=== PATIENT | female | born 1950 | race Caucasian/White ===

== ENCOUNTER → 2016-08-01 | Outpatient (CLI) | payer OTHER, BC ==
[~2016-08-01] MED LIST: ASPEC325 PO; ASPI325T4 PO; CHOL2000 PO; COEN100C11 PO; CRS5 PO; DYZ PO; ESCI1TAB10 PO; GLUC1CAP35 PO; HYDR-5688 PO; LISI-725 PO; MELO15TA4 PO; TRAZ50TA35 PO; VERA180T10 PO
--- NOTE | 2016-08-01 13:41 | DIAGNOSTIC IMAGING REPORT ---
THYROID ULTRASOUND HISTORY: Thyroid nodules SINGLE THYROID NODULE COMPARISON: 07/26/2014 FINDINGS: Right lobe: Heterogeneous throughout. Maximum linear dimension 5.1 cm. Several small nodules are present largest of which 5 mm. Left lobe: Heterogeneous throughout. Dominant nodule measuring 3 cm. This is similar compared to the prior exam with partial cystic degeneration. Isthmus: No nodules. IMPRESSION: Multinodular multicystic thyroid essentially unchanged given differences in scan technique compared to the prior study. Electronically signed by: Mike Stone M.D. 08/01/2016 1:39 PM Dictated Date/Time: 08/01/2016 1:34 PM
== END | disposition home or self-care (01) ==
LOC: C.ULTR 12:53
PROVIDERS: ATTEND Family Medicine
DX: E04.2 Nontoxic multinodular goiter (principal)

== ENCOUNTER → 2016-11-08 | Outpatient (CLI) | payer OTHER, BC ==
[~2016-11-08] MED LIST changes: -ASPI325T4 PO; -CHOL2000 PO; -COEN100C11 PO; -GLUC1CAP35 PO; -HYDR-5688 PO; -LISI-725 PO; -MELO15TA4 PO; -VERA180T10 PO
--- NOTE | 2016-11-08 16:09 | MAMMOGRAPHY REPORT ---
BILATERAL DIGITAL SCREENING MAMMOGRAM WITH CAD: 11/08/2016 CLINICAL HISTORY: Routine screening. Patient has no complaints. TECHNIQUE: Current study was also evaluated with a Computer Aided Detection (CAD) system. Bilateral CC and MLO views were obtained. COMPARISON: Comparison is made to exams dated: 11/08/2015 mammogram, 11/04/2014 mammogram, 07/21/2013 m ammogram, 07/04/2012 ultrasound, 07/04/2012 mammogram, and 07/01/2012 mammogram - [facility]. BREAST COMPOSITION: The tissue of both breasts is almost entirely fatty. FINDINGS: No suspicious masses, calcifications, or areas of architectural distortion are noted in ei ther breast. There has been no significant interval change compared to prior exams. Left breast nodu larity is stable compared to multiple prior exams. IMPRESSION: ACR BI-RADS CATEGORY 2: BENIGN There is no mammographic evidence of malignancy. A 1 year screening mammogram is recommended. The pa tient will receive written notification of the results. Approximately 10% of breast cancers are not detected with mammography. A negative mammographic report should not delay biopsy if a clinically suggestive mass is present. Cindy Esquivel M.D. ah/:11/08/2016 13:03:24 Line Clearance Foreman: Kayla FOLEY(Kirstin)(M), [facility] letter sent: Normal 1/2 BI-RADS Code: ACR BI-RADS Category 2: Benign
== END | disposition home or self-care (01) ==
LOC: C.MAMM 12:35
PROVIDERS: ATTEND Family Medicine
DX: Z12.31 Encounter for screening mammogram for malignant neoplasm of breast (principal)

== ENCOUNTER → 2016-11-26 | Outpatient (CLI) | payer OTHER, BC ==
--- NOTE | 2016-11-26 08:26 | DIAGNOSTIC IMAGING REPORT ---
ABDOMINAL ULTRASOUND, RIGHT UPPER QUADRANT HISTORY: Epigastric pain, nausea and vomiting. COMPARISON: CT of the abdomen September 27, 2009. FINDINGS: Liver is sonographically normal. There is no biliary ductal dilatation. The common bile duct measures 4 mm in caliber. A gallstone is noted within the gallbladder. There is no gallbladder wall thickening or pericholecystic fluid. Pancreas is sonographically unremarkable although the tail is slightly obscured by overlying bowel gas. There is no right hydronephrosis. IMPRESSION: 1. Cholelithiasis. No gallbladder wall thickening. 2. No biliary ductal dilatation. Electronically signed by: Stone Dhaliwal M.D. 11/26/2016 8:24 AM Dictated Date/Time: 11/26/2016 8:23 AM
== END | disposition home or self-care (01) ==
LOC: C.ULTR 07:09
PROVIDERS: ATTEND Nurse Practitioner Family
DX: R10.13 Epigastric pain (principal); R11.2 Nausea with vomiting, unspecified

== ENCOUNTER → 2016-12-27 | Outpatient (CLI) | payer OTHER, BC ==
[~2016-12-27] MED LIST changes: +ASPI325T4 PO; +CHOL2000 PO; +COEN100C11 PO; +GLUC1CAP35 PO; +LISI-725 PO; +MELO15TA4 PO; +VERA180T10 PO
[2016-12-27 10:11] LABS: BASO % 1.5 %; BASO ABS # 0.07 K/uL (0-0.2); COMPLETE YES; EOS % 12.8 %; IG% 0.2 %; LYMPH % 29.6 %; LYMPH ABS # 1.39 K/uL (1.2-3.4); MEAN CELL VOLUME 90.5 fL (80-100); MEAN PLATELET VOLUME 10.3 fL (7.4-10.4); MONO % 7.7 %; NEUT % 48.2 %; PLATELET COUNT 198 K/uL (130-400); RED BLOOD COUNT 4.42 M/uL (4.2-5.4); WHITE BLOOD COUNT 4.69 K/uL (4.8-10.8)
[2016-12-27 10:19] LABS: BLOOD UREA NITROGEN 23 mg/dl (7-18); BUN/CREATININE RATIO 29.4 (10-20); CALCIUM 9.6 mg/dl (8.5-10.1); CARBON DIOXIDE 32 mmol/L (21-32); CHLORIDE 105 mmol/L (98-107); CREATININE 0.78 mg/dl (0.60-1.20); GLUCOSE 78 mg/dl (70-99); POTASSIUM 4.7 mmol/L (3.5-5.1); SODIUM 140 mmol/L (136-145)
== END | disposition home or self-care (01) ==
LOC: C.CPL 09:25
PROVIDERS: ATTEND Surgery
DX: K80.50 Calculus of bile duct without cholangitis or cholecystitis without obstruction (principal); K80.20 Calculus of gallbladder without cholecystitis without obstruction

== ENCOUNTER 2017-01-02 05:09 | Observation (INO) | payer OTHER, BC ==
[2016-12-28 11:40] VITALS: BMI 29.0
[2017-01-02] VITALS (9 sets, daily range): BP systolic 125–154; BP diastolic 64–89; PULSE 59–78; TEMP 36.6–37.2; O2SAT 90–97; Ht 170.2 cm; Wt 85.0 kg
[~2017-01-02] VITALS: Ht 170.2 cm; Wt 85.0 kg
[~2017-01-02 05:09] MED LIST changes: -ASPEC325 PO; -DYZ PO
[2017-01-02] MEDS ORDERED: LACTATED RINGER'S 1000ML 1,000 ML IV SCH (06:00)
[2017-01-02] MEDS ORDERED: CEFUROXIME IV 1,500 MG in DEXTROSE 5% 100ML IV SCH (06:00)
--- NOTE | 2017-01-02 06:49 | History & Physical Bridge Note ---
H&P Re-Evaluation Bridge Note: I have examined the patient, reviewed the History & Physical and in the interval since the performance of the History & Physical I have noted the following changes of clinical significance: No changes noted
[2017-01-02] MEDS ORDERED: LIDOCAINE HCL 2% 2 ML VIAL (20MG/ML) ONE (06:57)
[2017-01-02] MEDS ORDERED: FENTANYL CITRATE INJ 50 MCG/1 ML 2 ML VIAL ONE ×2 (06:57→06:59)
[2017-01-02] MEDS ORDERED: PROPOFOL IV EMULSION 10 MG/ML 20 ML VIAL IV ONE (06:57)
[2017-01-02] MEDS ORDERED: ROCURONIUM BROMIDE 10 MG/ML 5 ML VIAL IV ONE (06:57)
[2017-01-02] MEDS ORDERED: MIDAZOLAM HCL 1 MG/ML 2ML VIAL ONE (06:57)
[2017-01-02] MEDS ORDERED: BUPIVACAINE 0.5 % 5 MG/1 ML MPF 30ML VIAL ONE (07:04)
[2017-01-02] MEDS ORDERED: HYDROmorphone INJ 1 MG/ML SYR IV PRN (07:45)
[2017-01-02] MEDS ORDERED: LABETALOL HCL IV 5 MG/ML 20ML IV PRN (07:45)
[2017-01-02] MEDS ORDERED: FENTANYL CITRATE INJ 50 MCG/1 ML 2 ML VIAL IV PRN (07:45)
[2017-01-02] MEDS ORDERED: MEPERIDINE HCL 25 MG/ML CARP IV PRN (07:45)
[2017-01-02] MEDS ORDERED: ATROPINE SULFATE 0.1 MG/ML 5ML SYR IV PRN (07:45)
[2017-01-02] MEDS ORDERED: EpHEDrine SULFATE INJ 50 MG/ML AMP IV PRN (07:45)
[2017-01-02] MEDS ORDERED: ONDANSETRON INJ 2 MG/ML 2 ML VIAL IV PRN ×2 (07:45→08:45)
[2017-01-02] MEDS ORDERED: LABETALOL HCL IV 5 MG/ML 20ML IV ONE (07:54)
[2017-01-02] MEDS ORDERED: DEXAMETHASONE SOD INJ 4 MG/ML VIAL ONE (07:54)
[2017-01-02] MEDS ORDERED: ONDANSETRON INJ 2 MG/ML 2 ML VIAL ONE (07:54)
[2017-01-02] MEDS ORDERED: GLYCOPYRROLATE INJ 0.2 MG/ML VIAL ONE ×3 (07:54→08:17)
[2017-01-02] MEDS ORDERED: NEOSTIGMINE METHYLSULFATE 1 MG/ML 10ML VIAL ONE (07:54)
[2017-01-02] MEDS ORDERED: THROMBIN 5000 UNITS KIT ONE (07:56)
[2017-01-02] MEDS ORDERED: THROMBIN FOR SOLN 20000 UNIT KIT ONE (07:56)
--- NOTE | 2017-01-02 08:38 | [facility] Operative Report ---
Operative Report Operative Date Jan 02, 2017. Pre-Operative Diagnosis Biliary Colic & Cholelithiasis Post-Operative Diagnosis Biliary Colic & Cholelithiasis Procedure(s) Performed Laparoscopic Cholecystectomy Surgeon Dr. Luis Miguel Littlejohn Lining Stuffer Surgeon(s) Blayne Reed PA-C Findings mild inflammation Specimens A: Gallbladder & Contents Anesthesia gen Complication(s) None Disposition Recovery Room / PACU I attest to the content of the Intraoperative Record and any orders documented therein. Any exceptions are noted below.
[2017-01-02] MEDS ORDERED: PROMETHAZINE HCL INJ 25 MG in SODIUM CHLORIDE 0.9% 50ML 50 ML IV PRN (08:45)
[2017-01-02] MEDS ORDERED: HYDROCODONE/ACETAMOPHEN 5/325MG TAB PO PRN ×2 (08:45)
[2017-01-02] MEDS ORDERED: MoRPHine SULFATE 2 MG/ML CARP IV PRN (08:45)
[2017-01-02] MEDS ORDERED: MoRPHine SULFATE 4 MG/ML 1 ML CARP\\VIAL IV PRN (08:45)
--- NOTE | 2017-01-02 08:54 | OPERATIVE REPORT ---
DATE OF OPERATION: 01/02/2017 NAME OF OPERATION: Laparoscopic cholecystectomy. PREOPERATIVE DIAGNOSIS: Biliary colic. POSTOPERATIVE DIAGNOSIS: Biliary colic with chronic cholecystitis. STAFF SURGEON: Donnell Littlejohn MD. JUMPBASTING LINING BASTER: Blayne Drew PA-C. ANESTHESIA: General. DESCRIPTION OF PROCEDURE: The patient was brought in the operating room and placed on the operating table in supine position. Her abdomen was prepped and draped in usual fashion. 0.5% plain Marcaine was used to anesthetize all incisions. Incision was made above the umbilicus, carrying dissection down to the fascia, placing a Veress needle producing pneumoperitoneum. An 11 mm port was placed at this level. The patient did have some oozing from the site. She had a history of being on aspirin and also CoQ10. At this point, I put a balloon cannula into the umbilical site and inflated the balloon and secured the site. Three 5 mm ports were placed. Then, 1 cephalad and 2 laterally, all under visualization. During the operation, there was some oozing from these sites. The gallbladder was grasped and retracted. It was aspirated of bile. Dissection carried out at the thaddeus hepatis, identifying the cystic duct and cystic artery. These were clipped and transected and the gallbladder dissected away from the liver bed in the usual fashion, placed into an Endobag. There was no significant bleeding from the liver bed. There was some mild oozing from some of the port sites. The gallbladder was removed through the umbilical site and then the 5 mm skin sites closed using 4-0 nylon suture. I did recheck intraabdominally and there was no significant bleeding from these port sites. The umbilical incision was then closed, reapproximating the fascia using interrupted 0 PDS suture, subcutaneous tissue was reapproximated using 2-0 plain catgut suture then the skin reapproximated using 4-0 nylon suture. The patient was transferred to recovery room in stable condition. I attest to the content of the Intraoperative Record and any orders documented therein. Any exception s are noted below.
[2017-01-02] MEDS ORDERED: LISINOPRIL 20 MG TAB PO SCH (09:00)
[2017-01-02] MEDS ORDERED: IV FLUIDS COMPLETED PRN (09:30)
--- NOTE | 2017-01-02 09:33 | Anesthesiology Progress Note ---
Anesthesia Post Op Note Date & Time Jan 02, 2017 at 09:32 Vital Signs Pain Intensity: 0 Vital Signs Past 12 Hours Date Time Temp Pulse Resp B/P (MAP) Pulse Ox O2 Delivery O2 Flow Rate FiO2 01/02/17 09:30 36.8 60 14 151/78 96 Nasal Cannula 2 01/02/17 09:20 63 14 156/84 94 Nasal Cannula 2 01/02/17 09:10 70 15 155/89 96 Oxymask 5 01/02/17 09:00 36.4 80 15 164/95 94 Oxymask 10 01/02/17 05:39 36.6 61 18 150/89 (109) 97 Room Air Notes Mental Status: alert / awake / arousable, participated in evaluation Pt Amnestic to Procedure: Yes Nausea / Vomiting: adequately controlled Pain: adequately controlled Airway Patency, RR, SpO2: stable & adequate BP & HR: stable & adequate Hydration State: stable & adequate Anesthetic Complications: no major complications apparent
[2017-01-02] MEDS ORDERED: ROSUVASTATIN CALCIUM 5 MG TAB PO SCH (10:30)
[2017-01-02] MEDS ORDERED: HydrALAZINE HCL 20 MG/ML VIAL IV. PRN (10:30)
--- NOTE | 2017-01-02 10:41 | Medical Consult ---
Consultation Date of Consultation: Jan 02, 2017. Attending Physician: Donnell Littlejohn M.D. Reason for Consultation: Medical Management History of Present Illness Patient is a 66 y/o female, with PMHx of HTN, HLD, and depression, s/p lap felipe due to biliary colic w/ chronic cholecystitis by Dr. Littlejohn on 01/02. Patient resting in bed. Alert/oriented. Admits to mild nausea. Has not eaten anything since procedure. Pain is well controlled. No BM/flatus postop. Patient denies any fever, chills, sweats, lightheadedness, dizziness, vision changes, CP , palpitations, edema, SOB, wheezing, cough, vomiting, diarrhea, urinary symptoms, melena, numbness/tingling, weakness, muscle/joint pain, anxiety/ depression, active bleeding, or new skin discoloration/changes. Past Medical/Surgical History Medical Problems: Depression HLD HTN Surgical History: lap felipe Family History No pertinent family history Social History Smoking Status: Never Smoker Drug Use: none Marital Status: Housing Status: lives with family Occupation Status: retired Allergies Coded Allergies: BEE STING (Verified Allergy, Mild, 04/26/06) Rosuvastatin (Verified Adverse Reaction, Unknown, MUSCLE WEAKNESS,CRAMPS, 09/05/15) Home Medications Reported Home Medications Medications Dose Route/Sig Max Daily Dose Days Date Category Dose Instructions Vitamin D3 (Cholecalciferol) 2,000 Unit Cap 1 Cap PO QAM 30 12/28/16 Reported Verapamil Hcl Sa (Verapamil Hcl) 180 Mg Tab 1 Tab PO QAM 30 12/28/16 Reported Meloxicam 15 Mg Tab 1 Tab PO QAM 12/28/16 Reported Zestril (Lisinopril) 20 Mg Tab 20 Mg PO BID 12/28/16 Reported Glucosamine Chondroitin (Dnxzbnfeiih-Hstdchbuyri-Iee C-) 1 Cap Cap 1 Cap PO QAM 12/28/16 Reported Coq-10 (Coenzyme Q10 (Ubidecarenone)) 100 Mg Cap 1 Tab PO QAM 12/28/16 Reported Aspirin 325 Mg Tab 325 Mg PO QAM 12/28/16 Reported Crestor (Rosuvastatin Calcium) 5 Mg Tab 5 Mg PO Q2D 09/05/15 Reported AT BEDTIME Trazodone (Trazodone HCl) 50 Mg Tab 50 Mg PO HS 05/04/09 Reported Lexapro (Escitalopram Oxalate) 20 Mg Tab 20 Mg PO QAM 05/04/09 Reported Current Inpatient Medications Current Inpatient Medications Medications (Trade) Dose Ordered Sig/Narinder Route Start Time Stop Time Status Last Admin Dose Admin Fentanyl Citrate (Fentanyl Inj) 50 mcg Q5M PRN IV 01/02/17 07:45 01/02/17 13:00 Hydromorphone HCl (Dilaudid Inj) 0.5 mg Q5M PRN IV 01/02/17 07:45 01/02/17 13:00 Meperidine HCl (Demerol Inj) 25 mg Q5M PRN IV 01/02/17 07:45 01/02/17 13:00 Ondansetron HCl (Zofran Inj) 4 mg ONE PRN IV 01/02/17 07:45 01/02/17 13:00 Labetalol HCl (Normodyne IV) 5 mg Q5M PRN IV 01/02/17 07:45 01/02/17 13:00 Ephedrine Sulfate (EpHEDrine SULFATE INJ) 5 mg Q5M PRN IV 01/02/17 07:45 01/02/17 13:00 Atropine Sulfate (Atropine Sulfate 0.1MG/Ml Inj) 0.5 mg Q1M PRN IV 01/02/17 07:45 01/02/17 13:00 Lisinopril (Zestril Tab) 20 mg BID PO 01/02/17 09:00 02/01/17 08:59 Trazodone HCl (Desyrel Tab) 50 mg HS PO 01/02/17 21:00 02/01/17 20:59 Acetaminophen/ Hydrocodone Bitart ([place] 5/325 Tab) 1 tab Q4 PRN PO 01/02/17 08:45 01/16/17 08:44 Acetaminophen/ Hydrocodone Bitart ([place] 5/325 Tab) 2 tab Q4 PRN PO 01/02/17 08:45 01/16/17 08:44 Morphine Sulfate (MoRPHine SULFATE INJ) 2 mg Q4H PRN IV 01/02/17 08:45 01/16/17 08:44 Morphine Sulfate (MoRPHine SULFATE INJ) 4 mg Q4H PRN IV 01/02/17 08:45 01/16/17 08:44 Promethazine HCl 25 mg/Sodium Chloride 51 ml @ 204 mls/hr Q6H PRN IV 01/02/17 08:45 02/01/17 08:44 Ondansetron HCl (Zofran Inj) 4 mg Q6H PRN IV 01/02/17 08:45 02/01/17 08:44 Miscellaneous (Iv Fluids Completed) 1 ea PRN PRN N/A 01/02/17 09:30 01/02/18 09:29 Physical Exam Date Time Temp Pulse Resp B/P (MAP) Pulse Ox O2 Delivery O2 Flow Rate FiO2 01/02/17 10:16 65 16 126/73 (90) 96 2.0 01/02/17 09:45 Nasal Cannula 2.0 01/02/17 09:45 96 Nasal Cannula 2.0 01/02/17 09:45 36.7 63 18 136/75 (95) 96 Nasal Cannula 2.0 01/02/17 09:30 36.8 60 14 151/78 96 Nasal Cannula 2 01/02/17 09:20 63 14 156/84 94 Nasal Cannula 2 01/02/17 09:10 70 15 155/89 96 Oxymask 5 01/02/17 09:00 36.4 80 15 164/95 94 Oxymask 10 01/02/17 05:39 36.6 61 18 150/89 (109) 97 Room Air General Appearance: no apparent distress, + pertinent finding (O2 NC ) Head: normocephalic, atraumatic Eyes: normal inspection, PERRL ENT: hearing grossly normal Neck: supple Respiratory/Chest: lungs clear, no respiratory distress, no accessory muscle use Cardiovascular: regular rate, rhythm Abdomen/GI: normal bowel sounds, soft, + tenderness (around incision sites ), + pertinent finding (Wound dressings C/D/I ) Extremities/Musculoskelatal: no calf tenderness, no pedal edema Neurologic/Psych: alert, normal mood/affect, oriented x 3, + pertinent finding (drowsy ) Skin: normal color, warm/dry, no rash Laboratory Results Last 24 Hours Test 01/02/17 10:07 Assessment & Plan Patient is a 66 y/o female, with PMHx of HTN, HLD, and depression, s/p lap felipe due to biliary colic w/ chronic cholecystitis by Dr. Littlejohn on 01/02. s/p lap felipe on 01/[address] Littlejohn: - Surgical management, pain management, and DVT prophylaxis as per primary team - Follow postop CBC and PRP - Encouraged incentive spirometer HTN: - Hold Lisinopril 20 mg BID pending postop labs - Continue Verapamil 180 mg daily - IV Hydralazine PRN HLD: Continue Crestor 5 mg Q2D Depression: Continue Lexapro 20 mg daily, Trazodone 50 mg HS DVT prophylaxis: As per surgical team Code Status: LEVEL I, FULL Dispo: As per primary team Thank you for this consultation. We will continue to follow. PA Physician Supervision Note: I interviewed and examined the patient. Discussed with Veronica AYALA and agree with findings and plan as documented in the note. Any exceptions or clarifications are listed here: None Patient is doing very well status post laparoscopic cholecystectomy was only referred left shoulder pain she is tolerating liquid diet Vital signs are stable following her for hypertension Heart is regular lungs are clear abdomen is soft hypoactive bowel sounds incisions were clean dry and intact Continue home treatment for hypertension but hold lisinopril in the postoperative period with backup hydralazine as needed next Dr. Littlejohn is advancing diet anticipate discharge next few days Documented By: Jamie Penn
[2017-01-02] MEDS ORDERED: HYDR-5688 PO (14:12)
--- NOTE | 2017-01-02 14:14 | Discharge Instructions ---
Discharge Instructions Date of Service Jan 02, 2017. Admission Reason for Admission: Cholelithiasis Discharge Discharge Diagnosis / Problem: chronic cholecystitis Discharge Goals Goal(s): Decrease discomfort, Improve function, Improve disease control Activity Recommendations Activity Limitations: as noted below Lifting Limitations: no more than 25 pounds Exercise/Sports Limitations: until after follow-up appointment May Resume Sexual Activity: when tolerated Shower/Bathe: tomorrow Driving or Machine Use: resume 3 days after discharge SPECIAL CARE INSTRUCTIONS: * Cover incisions and change daily for comfort/drainage. * May use ibuprofen for pain as tolerated. * Expect some swelling and bruising. Call your doctor if: * Temperature above 101 degrees * Pain not relieved by pain medicine ordered * There is increased drainage or redness from any incision * You have any unanswered questions or concerns [phone]. FOLLOW UP VISIT: If not already scheduled, please call the office for a follow-up visit. for next week- suture removal OFFICE PHONE NUMBER: Dr. Littlejohn Office . Current Hospital Diet Patient's current hospital diet: Regular Diet Discharge Diet Recommended Diet: Regular Diet Procedures Procedures Performed: Laparoscopic Cholecystectomy Pending Studies Studies pending at discharge: no Medical Emergencies . Who to Call and When: Medical Emergencies: If at any time you feel your situation is an emergency, please call 911 immediately. . Non-Emergent Contact Non-Emergency issues call your: Primary Care Provider, Surgeon . "Provider Documentation" section prepared by Donnell Littlejohn. . VTE Core Measure Inpt VTE Proph given/why not?: SCD's
[2017-01-02] MEDS ORDERED: TRAZODONE HCL 50 MG TAB PO SCH (21:00)
[2017-01-03 03:25] VITALS: BP 122/69; PULSE 65; TEMP 36.8; O2SAT 91
[2017-01-03 05:21] LABS: ALT/SGPT 29 U/L (12-78); AST/SGOT 30 U/L (15-37); BLOOD UREA NITROGEN 24 mg/dl (7-18); BUN/CREATININE RATIO 29.2 (10-20); CALCIUM 9.4 mg/dl (8.5-10.1); CARBON DIOXIDE 29 mmol/L (21-32); CHLORIDE 105 mmol/L (98-107); CREATININE 0.83 mg/dl (0.60-1.20); GLUCOSE 124 mg/dl (70-99); POTASSIUM 4.3 mmol/L (3.5-5.1); SODIUM 140 mmol/L (136-145)
[2017-01-03 05:24] LABS: ALB/GLOB RATIO 1.1 (0.9-2); ALKALINE PHOSPHATASE 59 U/L (45-117)
--- NOTE | 2017-01-03 06:29 | DISCHARGE SUMMARY ---
DATE OF DISCHARGE: 01/03/2017 PRINCIPAL DIAGNOSIS: Chronic cholecystitis. PROCEDURE: The patient underwent laparoscopic cholecystectomy. HISTORY OF PRESENT ILLNESS: The patient is a 66-year-old female who had been having upper abdominal pain and noted with gallstones on workup, felt to be secondary to biliary colic. The patient was brought in the hospital on 01/02/2017 where she underwent laparoscopic cholecystectomy. She did tolerate the procedure very well and was felt stable for discharge home today. She did have some mild oozing during the operation from her port sites, specifically at the skin. One of her 5 mm port sites did have a small amount of oozing throughout the day but seems to be under control. I do feel she can be discharged home today. We will follow her in the office within 1 week.
[2017-01-03 07:09] VITALS: BP 145/80; PULSE 60; TEMP 37; O2SAT 93
[2017-01-03 07:16] LABS: HEMATOCRIT 35.3 % (37-47); MEAN CELL VOLUME 89.4 fL (80-100); MEAN CORPUSCULAR HEMOGLOBIN 28.9 pg (25-34); MEAN CORPUSCULAR HGB CONC 32.3 g/dl (32-36); MEAN PLATELET VOLUME 10.7 fL (7.4-10.4); PLATELET COUNT 182 K/uL (130-400); RED BLOOD COUNT 3.95 M/uL (4.2-5.4); WHITE BLOOD COUNT 7.08 K/uL (4.8-10.8)
[2017-01-03] MEDS ORDERED: ESCITALOPRAM OXALATE 20 MG TAB PO SCH (09:00)
[2017-01-03] MEDS ORDERED: VERAPAMIL HCL 180 MG TABCR PO SCH (09:00)
[2017-01-03 09:58] VITALS: BP 145/80; PULSE 60; TEMP 37; O2SAT 93
== END 2017-01-03 10:55 | disposition home or self-care (01) ==
LOC: C.ACU 05:09 → C.MSW 08:44 → ENRESERV 09:25
PROVIDERS: ADMIT Surgery; ATTEND Surgery
DX: K80.10 Calculus of gallbladder with chronic cholecystitis without obstruction (principal); I10 Essential (primary) hypertension; E78.5 Hyperlipidemia, unspecified; F32.9 Major depressive disorder, single episode, unspecified; Z79.82 Long term (current) use of aspirin; Z79.899 Other long term (current) drug therapy

== ENCOUNTER 2019-05-01 11:52 | Observation (INO) ==
[2019-05-01] MEDS ORDERED: SODIUM CHLORIDE 0.9% 1000ML 500 ML IV ONE (12:31)
[2019-05-01] MEDS ORDERED: PROCHLORPERAZINE 2 ML IV ONE (12:31)
[2019-05-01 12:44] LABS: Basophils # (auto) 0.03 K/uL (0-0.2); Basophils % (auto) 0.4 %; Eosinophils # (auto) 0.88 K/uL (0-0.5); Eosinophils % (auto) 12.2 %; Hemoglobin 13.9 g/dL (12.0-16.0); Immature Granulocytes # (auto) 0.03 K/uL (0.00-0.02); Immature Granulocytes % (auto) 0.4 %; Lymphocytes # (auto) 1.84 K/uL (1.2-3.4); Lymphocytes % (auto) 25.6 %; Mean Corpuscular Hemoglobin 28.6 pg (25-34); Mean Corpuscular Hgb Conc 32.3 g/dL (32-36); Mean Corpuscular Volume 88.5 fL (80-100); Mean Platelet Volume 10.3 fL (7.4-10.4); Monocytes # (auto) 0.47 K/uL (0.11-0.59); Monocytes % (auto) 6.5 %; Neutrophils # (auto) 3.95 K/uL (1.4-6.5); Neutrophils % (auto) 54.9 %; Platelet Count 209 K/uL (130-400); RDW Coefficient of Variation 13.1 % (11.5-14.5); RDW Standard Deviation 41.9 fL (36.4-46.3); Red Blood Count 4.86 M/uL (4.2-5.4)
[2019-05-01 12:52] LABS: Alanine Aminotransferase 15 U/L (12-78); Albumin Level 3.5 gm/dl (3.4-5.0); Aspartate Aminotransferase 12 U/L (15-37); BUN Creatinine Ratio 27.4 (10-20); Blood Urea Nitrogen 24 mg/dl (7-18); Carbon Dioxide 27 mmol/L (21-32); Chloride 107 mmol/L (98-107); Creatinine Clr Calc Pharmacy 70.5 ml/min; Est GFR (African American) 78.8; Glucose 99 mg/dl (70-99); Magnesium 1.8 mg/dl (1.8-2.4); Potassium 3.9 mmol/L (3.5-5.1); Sodium 139 mmol/L (136-145)
[2019-05-01 12:55] LABS: Partial Thromboplastin Ratio 0.9; Partial Thromboplastin Time 23.9 Seconds (21.0-31.0); Prothrombin Time 10.1 Seconds (9.0-12.0)
[2019-05-01 12:56] LABS: Alkaline Phosphatase 69 U/L (45-117); Bilirubin,Total 0.4 mg/dl (0.2-1); Globulin 3.5 gm/dl (2.5-4.0); Troponin I < 0.015 ng/ml (0-0.045)
[2019-05-01] MEDS ORDERED: OPTIRAY 320 125ml IV PRN (13:53)
--- NOTE | 2019-05-01 14:18 | CT Scan Report ---
CT angio neck with con CLINICAL HISTORY: vertigo, expressive aphasia yesterday, HUGHES COMPARISON STUDY: No previous studies for comparison. TECHNIQUE: CT angiography was performed from the aortic arch to the skull base. MIP imaging was perfo rmed. The patient was scanned in a dynamic helical fashion during intravenous administration of 120 c c of Optiray 320. A dose lowering technique was utilized adhering to the principles of ALARA. CT DOSE: Technique: CT angiogram of the carotid and vertebral arteries was obtained using intravenous contrast and 3-D reconstruction. NASCET criteria was utilized. Findings: There is a multinodular thyroid goiter. The left lobe nodule contains multiple calcifications. This h as been described on prior ultrasonography. The right carotid revealed no evidence of aneurysm and no evidence of dissection. There is no evidenc e of hemodynamic significant stenosis. The left carotid revealed no evidence of hemodynamic significant stenosis. There is no evidence of an eurysm. There is no evidence of dissection. There is no evidence of hemodynamically significant vertebral stenosis. There is no evidence of verte bral dissection. IMPRESSION: No evidence of hemodynamically significant carotid or vertebral artery stenosis. No evidence of disse ction. ACT 112: Negative or not required by law. Electronically signed by: Jamie Hooper M.D. 05/01/2019 2:17 PM
--- NOTE | 2019-05-01 14:26 | CT Scan Report ---
NONCONTRAST HEAD CT, HEAD CTA HISTORY: vertigo, expressive aphasia yesterday, headache TECHNIQUE: Multiaxial CT images of the head were performed both before and after the intravenous admi nistration of contrast to evaluate the major cerebral vessels. Maximum intensity projection images we re also obtained. A dose lowering technique was utilized adhering to the principles of ALARA. COMPARISON: None. FINDINGS: There is no mass, hematoma, midline shift, or acute infarct. Visualized intracranial architectural intern al carotid arteries, distal vertebral arteries, and basilar artery are widely patent. There is no sig nificant stenosis, occlusion, or aneurysm seen within the bilateral ACAs, MCAs, or building equipment inspector. Incidental n ote is made of a persistent left posterior circulation. This is considered to be a normal varia nt. IMPRESSION: 1. No acute intracranial abnormality. 2. No significant stenosis, occlusion, or aneurysm within the [place]. ACT 112: Negative or not required by law. Electronically signed by: Ashu Kim M.D. 05/01/2019 2:25 PM
--- NOTE | 2019-05-01 14:26 | CT Scan Report ---
NONCONTRAST HEAD CT, HEAD CTA HISTORY: vertigo, expressive aphasia yesterday, headache TECHNIQUE: Multiaxial CT images of the head were performed both before and after the intravenous admi nistration of contrast to evaluate the major cerebral vessels. Maximum intensity projection images we re also obtained. A dose lowering technique was utilized adhering to the principles of ALARA. COMPARISON: None. FINDINGS: There is no mass, hematoma, midline shift, or acute infarct. Visualized intracranial international exchange coordinator al carotid arteries, distal vertebral arteries, and basilar artery are widely patent. There is no sig nificant stenosis, occlusion, or aneurysm seen within the bilateral ACAs, MCAs, or motor vehicle technician. Incidental n ote is made of a persistent left posterior circulation. This is considered to be a normal varia nt. IMPRESSION: 1. No acute intracranial abnormality. 2. No significant stenosis, occlusion, or aneurysm within the [place]. ACT 112: Negative or not required by law. Electronically signed by: Ashu Kim M.D. 05/01/2019 2:25 PM
--- NOTE | 2019-05-01 14:49 | History & Physical Report ---
Date of Service May 01, 2019 Assessment & Plan (1) Expressive aphasia: 69-year-old female with history of hypertension, hyperlipidemia, remote history of atrial fibrillation presently not on anticoagulation therapy presenting with transient expressive aphasia as well as vertigo and gait instability. Concern for TIA versus CVA. CT head as well as CTA head/neck negative. EKG shows normal sinus rhythm. Labs are unremarkable. Patient states that her aphasia has resolved. Now with headache and vertigo. -Admit to medical floor telemetry monitoring Check MRI brain Check 2D echocardiogram Lipids, TSH and A1c with labs tomorrow No change antiplatelet to from aspirin to Plavix 75 mg p.o. daily No change statin from Crestor to atorvastatin 40 mg p.o. daily Continue co-Q10 Hold antihypertensives for now -Neurology consult. Appreciate assistance PT/OT evaluationappreciate assistance -Tylenol as needed for headache Patient with remote history of atrial fibrillation presently on verapamil. States that she has never been on a blood thinner. Currently in normal sinus rhythm Holding verapamil for now Telemetry monitoring while inpatient If no atrial fibrillation detected would consider outpatient monitoring. Patient is at high risk for stroke should she have A. fib Present on Admission?: Yes (2) Sinusitis: Patient with acute sinusitis presently on Augmentin therapy. She has 1 additional tablet to take this evening. She reports that she frequently experiences vertigo when she has her sinus infections however, this current episode of vertigo is more severe and longer lasting than prior episodes. We will give last dose of Augmentin this evening Continue Flonase Meclizine as needed vertigo Nasal saline wash Present on Admission?: Yes (3) Hypertension: Blood pressure stable at present, 139/93 We will hold lisinopril for now Continue to monitor Present on Admission?: Yes (4) Hyperlipidemia: Chronic. Patient on Crestor 5 mg 3 days/week. Will change to atorvastatin 40 mg p.o. daily Continue co-Q10 Present on Admission?: Yes (5) Depression: Chronic. Stable. Continue Lexapro F/E/N -Hep-Lock. Monitor electrolytes and replete as needed. Heart healthy diet as tolerated after bedside dysphasia screening Prophylaxislow risk for DVT Codefull per discussion with patient, at bedside Dispositionobservation to medical floor telemetry monitoring. Anticipate discharge home tomorrow History of Present Illness Chief Complaint: Dizziness, ataxia Primary Care Provider: MD Nelli Escobedoaugh is a 69-year-old female with history of hypertension, hyperlipidemia, migraine, remote history of atrial fibrillation on verapamil, no anticoagulation. She presents today with complaints of expressive aphasia noticed first yesterday around 1600. She states that she was unable to read and unable to speak. Reports that she knew what she wanted to say but was speaking nonsensically and having a difficult time finding and forming her words. reports that her speech was garbled and unclear. She also reports gait instability and dizziness as well as severe headache. Patient currently with acute sinusitis on Augmentin. She has 1 additional dose to take this evening to complete a 10-day course. She reports that she frequently has sinusitis about twice per year and when she gets it she gets a mi graine headache as well as vertigo. She does report that the headache and vertigo today is more severe than her usual. Patient was seen by her PCP today and instructed to come to the ER. She feels t hat her aphasia and speech difficulties have resolved. Still complaining of headache, dizziness, gait instability ER course: Phenergan, normal saline solution Allergies Allergy/AdvReac Type Severity Reaction Status Date / Time bee venom protein (honey bee) Allergy Mild Verified 05/01/19 14:51 rosuvastatin AdvReac Unknown MUSCLE Verified 05/01/19 14:51 WEAKNESS,CRAMPS Home Medications Home Medications Medication Instructions Recorded Confirmed Type amoxicillin-pot clavulanate 1 tab PO BID 05/01/19 05/01/19 History cholecalciferol (vitamin D3) 2,000 unit PO QAM 05/01/19 05/01/19 History coenzyme Q10 [Co Q-10] 200 mg PO QAM 05/01/19 05/01/19 History escitalopram oxalate 20 mg PO DAILY 05/01/19 05/01/19 History fluticasone propionate [Flonase 1 spray INTRANASAL QAM PRN 05/01/19 05/01/19 History Allergy Relief] tzyruion-lufvc-lcw4-C-jamar-bor 1 tab PO QAM 05/01/19 05/01/19 History [Bwpenbmbcsz-Vsnhr-JTR Complex] lisinopril 20 mg PO BID 05/01/19 05/01/19 History loratadine 10 mg PO QAM PRN 05/01/19 05/01/19 History meclizine 25 mg PO TID PRN 05/01/19 05/01/19 History meloxicam 15 mg PO QAM 05/01/19 05/01/19 History multivitamin 1 tab PO QAM 05/01/19 05/01/19 History rizatriptan 10 mg PO ONCE PRN 05/01/19 05/01/19 History rosuvastatin 5 mg PO Q OTHER DAY 05/01/19 05/01/19 History trazodone 50 mg PO HS 05/01/19 05/01/19 History verapamil 240 mg PO QAM 05/01/19 05/01/19 History Past Med/Surg History Medical History (Updated 05/01/19 @ 15:35 by Alyx Burch DO) Depression Hyperlipidemia (Chronic) Hypertension Migraine Surgical History (Updated 05/01/19 @ 15:35 by Alyx Burch DO) History of cholecystectomy History of hernia repair History of hysterectomy Family History (Updated 05/01/19 @ 15:34 by Alyx Burch DO) Other Diabetes Social History (Updated 05/01/19 @ 15:34 by Alyx Burch DO) Feels Safe at Home: Yes Smoking Status: Never smoker Hx Alcohol Use: No Hx Substance Use: No Review of Systems Review of Systems: All systems reviewed & are unremarkable except as noted in HPI & below Physical Exam Physical Exam: General: patient resting comfortably, NAD, non-toxic in appearance, AA&O x 4 Skin: warm, dry, intact, no rashes or lesions HEENT: NC/AT, PERRL, EOMI, no nystagmus, anicteric sclera, conjunctiva without injection, external ear normal to inspection and nontender, TMs with good cone of light, no evidence of infection, nares patent, + facial tenderness over maxillary and frontal sinuses, moist mucus membranes, dentition intact, no oropharyngeal lesions, neck supple, trachea midline, no LAD, no thyromegaly, no JVD Heart: +S1/S2, regular, no m/r/g Lungs: equal air entry bilaterally, no rales/rhonchi/wheezes Abd: +BS, soft, NT/ND, no masses/organomegaly/ascites Ext: warm, 2+ pulses in UE/LE bilaterally, no clubbing/cyanosis or edema Neuro: nonfocal, patient AA&O x 4, speech intact with very mild word finding difficulty, no facial droop, cranial nerves II through XII grossly intact, sensation to light touch intact, muscle strength 5 out of 5 in upper and lower extremities bilaterally, significant ataxia when getting patient up from bed Results & Data Vital Signs (Past 12 Hours) Vital Signs Temp Pulse Pulse Resp BP BP Pulse Ox 05/01/19 13:07 66 16 139/93 99 05/01/19 11:58 36.8 C 79 18 148/89 H 96 Laboratory Results Lab Results 05/01/19 05/01/19 05/01/19 Range/Units 12:10 12:10 12:10 WBC 7.20 (4.8-10.8) K/uL RBC 4.86 (4.2-5.4) M/uL Hgb 13.9 (12.0-16.0) g/dL Hct 43.0 (37-47) % MCV 88.5 (80-100) fL MCH 28.6 (25-34) pg MCHC 32.3 (32-36) g/dL RDW Std Deviation 41.9 (36.4-46.3) fL RDW Coeff of Jaskaran 13.1 (11.5-14.5) % Plt Count 209 (130-400) K/uL MPV 10.3 (7.4-10.4) fL Immature Gran % (Auto) 0.4 % Neut % (Auto) 54.9 % Lymph % (Auto) 25.6 % [place] % (Auto) 6.5 % Eos % (Auto) 12.2 % Baso % (Auto) 0.4 % Immature Gran # (Auto) 0.03 H (0.00-0.02) K/uL Neut # (Auto) 3.95 (1.4-6.5) K/uL Lymph # (Auto) 1.84 (1.2-3.4) K/uL [place] # (Auto) 0.47 (0.11-0.59) K/uL Eos # (Auto) 0.88 H (0-0.5) K/uL Baso # (Auto) 0.03 (0-0.2) K/uL PT 10.1 (9.0-12.0) Seconds INR 1.0 (0.9-1.1) APTT 23.9 (21.0-31.0) Seconds PTT Ratio 0.9 Sodium 139 (136-145) mmol/L Potassium 3.9 (3.5-5.1) mmol/L Chloride 107 (98-107) mmol/L Carbon Dioxide 27 (21-32) mmol/L Anion Gap 5.0 (3-11) BUN 24 H (7-18) mg/dl Creatinine 0.86 (0.6-1.2) mg/dl Est Cr Clr Drug Dosing 70.5 ml/min Est GFR ( Amer) 78.8 Est GFR (Non-Af Amer) 68.0 BUN/Creatinine Ratio 27.4 H (10-20) Glucose 99 (70-99) mg/dl Calcium 10.0 (8.5-10.1) mg/dl Magnesium 1.8 (1.8-2.4) mg/dl Total Bilirubin 0.4 (0.2-1) mg/dl AST 12 L (15-37) U/L ALT 15 (12-78) U/L Alkaline Phosphatase 69 (45-117) U/L Troponin I < 0.015 (0-0.045) ng/ml Total Protein 7.0 (6.4-8.2) gm/dl Albumin 3.5 (3.4-5.0) gm/dl Globulin 3.5 (2.5-4.0) gm/dl Albumin/Globulin Ratio 1.0 (0.9-2) Diagnostic Findings NONCONTRAST HEAD CT, HEAD CTA HISTORY: vertigo, expressive aphasia yesterday, headache TECHNIQUE: Multiaxial CT images of the head were performed both before and after the intravenous administration of contrast to evaluate the major cerebral vessels. Maximum intensity projection images were also obtained. A dose lowering technique was utilized adhering to the principles of ALARA. COMPARISON: None. FINDINGS: There is no mass, hematoma, midline shift, or acute infarct. Visualized intracranial internal carotid arteries, distal vertebral arteries, and basilar artery are widely patent. There is no significant stenosis, occlusion, or aneurysm seen within the bilateral ACAs, MCAs, or transfer man. Incidental note is made of a persistent left posterior circulation. This is considered to be a normal variant. IMPRESSION: 1. No acute intracranial abnormality. 2. No significant stenosis, occlusion, or aneurysm within the [place]. ACT 112: Negative or not required by law. Electronically signed by: Ashu Kim M.D. 05/01/2019 2:25 PM Dictated: 05/01/191414 Transcribed: 05/01/191414 NONCONTRAST HEAD CT, HEAD CTA HISTORY: vertigo, expressive aphasia yesterday, headache TECHNIQUE: Multiaxial CT images of the head were performed both before and after the intravenous administration of contrast to evaluate the major cerebral vessels. Maximum intensity projection images were also obtained. A dose lowering technique was utilized adhering to the principles of ALARA. COMPARISON: None. FINDINGS: There is no mass, hematoma, midline shift, or acute infarct. Visualized intracranial internal carotid arteries, distal vertebral arteries, and basilar artery are widely patent. There is no significant stenosis, occlusion, or aneurysm seen within the bilateral ACAs, MCAs, or transfer man. Incidental note is made of a persistent left posterior circulation. This is considered to be a normal variant. IMPRESSION: 1. No acute intracranial abnormality. 2. No significant stenosis, occlusion, or aneurysm within the [place]. ACT 112: Negative or not required by law. Electronically signed by: Ashu Kim M.D. 05/01/2019 2:25 PM Dictated: 05/01/191414 Transcribed: 05/01/191414 CT angio neck with con CLINICAL HISTORY: vertigo, expressive aphasia yesterday, [facility] COMPARISON STUDY: No previous studies for comparison. TECHNIQUE: CT angiography was performed from the aortic arch to the skull base. MIP imaging was performed. The patient was scanned in a dynamic helical fashion during intravenous administration of 120 cc of Optiray 320. A dose lowering technique was utilized adhering to the principles of ALARA. CT DOSE: Technique: CT angiogram of the carotid and vertebral arteries was obtained using intravenous contrast and 3-D reconstruction. NASCET criteria was utilized. Findings: There is a multinodular thyroid goiter. The left lobe nodule contains multiple calcifications. This has been described on prior ultrasonography. The right carotid revealed no evidence of aneurysm and no evidence of dissection. There is no evidence of hemodynamic significant stenosis. The left carotid revealed no evidence of hemodynamic significant stenosis. There is no evidence of aneurysm. There is no evidence of dissection. There is no evidence of hemodynamically significant vertebral stenosis. There is no evidence of vertebral dissection. IMPRESSION: No evidence of hemodynamically significant carotid or vertebral artery stenosis. No evidence of dissection. ACT 112: Negative or not required by law. Electronically signed by: Jamie Hooper M.D. 05/01/2019 2:17 PM Dictated: 05/01/191413 Transcribed: 05/01/191413 ECG Additional Comments: Study shows normal sinus rhythm at 72 bpm with sinus arr hythmia, normal axis, FL = 152, QRS = 80, QTC = 477, no acute ischemic changes Code Status & VTE Plan Code Status Full code PG Care Time/CCT Total # of Minutes Spent Total Time Spent with Patient: Total time spent is greater than 50% in coordination of care (as documented) at patient's floor/unit and/or counseling patient: Coding Level of Care Code 53669 OBS Care - Level 3 Diagnoses Expressive aphasia R47.01 Sinusitis J01.11 Chronicity: acute Recurrence: recurrent Sinusitis location: frontal Hypertension I10 Hypertension type: essential hypertension Hyperlipidemia E78.5 Hyperlipidemia type: unspecified Depression F32.9 Active/Remission status: remission status unspecified Depression Type: major depressive disorder Major depression recurrence: unspecified whether recurrent (1) Depression Active/Remission status: remission status unspecified Depression Type: major depressive disorder Major depression recurrence: unspecified whether recurrent Qualified Code(s): F32.9 - Major depressive disorder, single episode, unspecified (2) Hyperlipidemia Hyperlipidemia type: unspecified Qualified Code(s): E78.5 - Hyperlipidemia, unspecified (3) Sinusitis Chronicity: acute Recurrence: recurrent Sinusitis location: frontal Qualified Code(s): J01.11 - Acute recurrent frontal sinusitis (4) Hypertension Hypertension type: essential hypertension Qualified Code(s): I10 - Essential (primary) hypertension
[2019-05-01] MEDS ORDERED: FLUTICASONE PROPIONATE NA SPR 16 GM BTL PRN (17:01)
[2019-05-01] MEDS ORDERED: ONDANSETRON INJ 2 MG/ML 2 ML VIAL IV PRN (17:01)
[2019-05-01] MEDS ORDERED: ACETAMINOPHEN 325 MG TAB PO PRN (17:01)
[2019-05-01] MEDS ORDERED: SODIUM CHLORIDE 0.65% NA SOLN 45 ML (OCEAN) PRN (17:01)
[2019-05-01] MEDS ORDERED: LORATADINE 10 MG TAB PO PRN (17:01)
[2019-05-01] MEDS ORDERED: AMOXICILLIN/CLAVULANATE 875 MG TAB PO ONE (17:30)
--- NOTE | 2019-05-01 17:54 | Emergency Department Note ---
Entered by Nancy Doherty acting as a scribe for Puma Tsai MD History of Present Illness General Chief complaint: Referred by Doctor Stated complaint: Referred by Doctor Time Seen by Provider: 05/01/19 12:09 Source: patient History of Present Illness Provider complaint: word finding difficulty Onset (ago): day(s) 1 Location: head Pain Consistency: + other (episode) Maximum Pain Intensity: 6 Relieved By: + none Exacerbated By: + none Associated symptoms: + headaches and + other (-ear pain, +dizziness); no chest pain and no fever/chills The patient is a 69 year old female w/ PMHx of HTN who presents to the ED w/ CC of difficulty finding words beginning yesterday. The patient reports that she was reading something and could not process the words. She notes that she could see the words there, but had difficulty understanding them. She states that she tried talking to her and was not able to form sentences even though she knew what she wanted to say. She reports that this episode lasted 1-2 hours. The patient reports that she has a headache. She denied any chest pain, fever, chills, or ear pain. She reports that she feels that the room is spinning. She denies any recent trauma. She notes that she has a history of atrial fibrillation and takes Aspirin regularly. Home Medications Home Medications Medication Instructions Recorded Confirmed Type amoxicillin-pot clavulanate 1 tab PO BID 05/01/19 05/01/19 History cholecalciferol (vitamin D3) 2,000 unit PO QAM 05/01/19 05/01/19 History coenzyme Q10 [Co Q-10] 200 mg PO QAM 05/01/19 05/01/19 History escitalopram oxalate 20 mg PO DAILY 05/01/19 05/01/19 History fluticasone propionate [Flonase 1 spray INTRANASAL QAM PRN 05/01/19 05/01/19 History Allergy Relief] njivvkmp-aoguv-isn5-C-jamar-bor 1 tab PO QAM 05/01/19 05/01/19 History [Qkuiocyxpql-Etfwx-VSW Complex] lisinopril 20 mg PO BID 05/01/19 05/01/19 History loratadine 10 mg PO QAM PRN 05/01/19 05/01/19 History meclizine 25 mg PO TID PRN 05/01/19 05/01/19 History meloxicam 15 mg PO QAM 05/01/19 05/01/19 History multivitamin 1 tab PO QAM 05/01/19 05/01/19 History rizatriptan 10 mg PO ONCE PRN 05/01/19 05/01/19 History rosuvastatin 5 mg PO Q OTHER DAY 05/01/19 05/01/19 History trazodone 50 mg PO HS 05/01/19 05/01/19 History verapamil 240 mg PO QAM 05/01/19 05/01/19 History Allergies Allergy/AdvReac Type Severity Reaction Status Date / Time bee venom protein (honey bee) Allergy Mild Verified 05/01/19 14:51 rosuvastatin AdvReac Unknown MUSCLE Verified 05/01/19 14:51 WEAKNESS,CRAMPS Past Med/Surg History Medical History (Updated 05/01/19 @ 15:35 by Alyx Burch DO) Depression Hyperlipidemia (Chronic) Hypertension Migraine Surgical History (Updated 05/01/19 @ 15:35 by Alyx Burch DO) History of cholecystectomy History of hernia repair History of hysterectomy Family History (Updated 05/01/19 @ 15:34 by Alyx Burch DO) Other Diabetes Social History (Updated 05/01/19 @ 15:34 by Alyx Burch DO) Preferred Language: Irish Communication Ability: Effective Director Of Corporate 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 and A total of 10 systems reviewed and were otherwise negative Physical Exam Vital Signs Vital Signs - 24 hr 05/01/19 11:58 05/01/19 13:07 05/01/19 14:52 Temperature 36.8 C Temperature Source Oral Pulse Rate 79 Pulse Rate [Apical] 66 66 Respiratory Rate 18 16 16 Respiratory Effort / Characteristics Non-Labored Spontaneous Respiratory Depth Normal Respiratory Pattern Gasping Blood Pressure 148/89 H Blood Pressure [Right Arm] 139/93 179/88 H Blood Pressure Mean 108 Blood Pressure Mean [Right Arm] 108 118 Blood Pressure Position Sitting Pulse Oximetry 96 99 98 Oxygen Delivery Method Room Air Room Air Sepsis Recent Fever Within 48 Hours No Sepsis Action Taken by Nursing No Action Required GENERAL: Well appearing, wearing glasses, well nourished, NAD, non-toxic. EYE EXAM: Normal conjunctiva. PERRL, no anisocoria and EOM's grossly intact w/o pain. OROPHARYNX: Moist mucous membranes. Grossly normal dentition. NECK: Supple, no nuchal rigidity, no adenopathy, non-tender. No signs of meningismus. LUNGS: Clear to auscultation. Normal chest wall mechanics. HEART: NSR, no MRG. ABDOMEN: Abdomen soft, non-tender, normo-active bowel sounds, no masses, no rebound or guarding. BACK: No CVA TTP. SKIN: No rashes and no bruising. UPPER EXTREMITIES: Upper extremities are grossly normal. LOWER EXTREMITIES: No pitting edema. No calf pain. NEURO EXAM: A&O x3, cranial nerves II-XII grossly intact, normal speech, 5/5 strength throughout, no sensory deficits, good finger to nose, no pronator drift, moves all 4 extremities on command w/o issue. Course Course 1238: The patient was evaluated in room C4, and a complete history and physical examination were performed. 1420: I reviewed the patient's case with Dr. Burch- [facility] Hospitalist. She will evaluate the patient for further management. 1458: I reevaluated the patient and updated her on her treatment plan. The hospitalist is at bedside. Administered Medications Acetaminophen (Tylenol) 650 mg PO Q4H PRN PRN Reason: pain/fever Stop: 05/31/19 17:00 Last Admin: 05/01/19 17:33 Dose: 650 mg Documented by: [id number] Ioversol (Optiray 320 125ml) 120 ml IV ONCE PRN PRN Reason: Interaction Checking Stop: 05/05/19 13:52 Last Admin: 05/01/19 13:54 Dose: 120 ml Documented by: [id number] Discontinued Medications Prochlorperazine (Compazine) 2 mls @ 1 mls/min IV ONE ONE Stop: 05/01/19 12:32 Last Admin: 05/01/19 12:43 Dose: 1 mls/min Documented by: [id number] Sodium Chloride (Nss 1000ml) 500 mls @ 999 mls/hr IV .Q31M ONE Stop: 05/01/19 13:01 Last Infusion: 05/01/19 13:40 Dose: 0 mls/hr Documented by: [id number] Admin: 05/01/19 12:43 Dose: 999 mls/hr Documented by: [id number] Medical Decision Making Medical Records Attestation: I reviewed the patient's medical records. Home Medications Current Medication List: was personally reviewed by md Laboratory Data Attestation: I reviewed the patient's lab results. Result diagrams: 05/01/19 12:10 05/01/19 12:10 Lab Results 05/01/19 05/01/19 05/01/19 Range/Units 12:10 12:10 12:10 WBC 7.20 (4.8-10.8) K/uL RBC 4.86 (4.2-5.4) M/uL Hgb 13.9 (12.0-16.0) g/dL Hct 43.0 (37-47) % MCV 88.5 (80-100) fL MCH 28.6 (25-34) pg MCHC 32.3 (32-36) g/dL RDW Std Deviation 41.9 (36.4-46.3) fL RDW Coeff of Jaskaran 13.1 (11.5-14.5) % Plt Count 209 (130-400) K/uL MPV 10.3 (7.4-10.4) fL Immature Gran % (Auto) 0.4 % Neut % (Auto) 54.9 % Lymph % (Auto) 25.6 % [place] % (Auto) 6.5 % Eos % (Auto) 12.2 % Baso % (Auto) 0.4 % Immature Gran # (Auto) 0.03 H (0.00-0.02) K/uL Neut # (Auto) 3.95 (1.4-6.5) K/uL Lymph # (Auto) 1.84 (1.2-3.4) K/uL [place] # (Auto) 0.47 (0.11-0.59) K/uL Eos # (Auto) 0.88 H (0-0.5) K/uL Baso # (Auto) 0.03 (0-0.2) K/uL PT 10.1 (9.0-12.0) Seconds INR 1.0 (0.9-1.1) APTT 23.9 (21.0-31.0) Seconds PTT Ratio 0.9 Sodium 139 (136-145) mmol/L Potassium 3.9 (3.5-5.1) mmol/L Chloride 107 (98-107) mmol/L Carbon Dioxide 27 (21-32) mmol/L Anion Gap 5.0 (3-11) BUN 24 H (7-18) mg/dl Creatinine 0.86 (0.6-1.2) mg/dl Est Cr Clr Drug Dosing 70.5 ml/min Est GFR ( Amer) 78.8 Est GFR (Non-Af Amer) 68.0 BUN/Creatinine Ratio 27.4 H (10-20) Glucose 99 (70-99) mg/dl Calcium 10.0 (8.5-10.1) mg/dl Magnesium 1.8 (1.8-2.4) mg/dl Total Bilirubin 0.4 (0.2-1) mg/dl AST 12 L (15-37) U/L ALT 15 (12-78) U/L Alkaline Phosphatase 69 (45-117) U/L Troponin I < 0.015 (0-0.045) ng/ml Total Protein 7.0 (6.4-8.2) gm/dl Albumin 3.5 (3.4-5.0) gm/dl Globulin 3.5 (2.5-4.0) gm/dl Albumin/Globulin Ratio 1.0 (0.9-2) Imaging Data Radiologist's Impression: Radiology results as stated below per my review and the radiologist's interpretation: NONCONTRAST HEAD CT, HEAD CTA HISTORY: vertigo, expressive aphasia yesterday, headache TECHNIQUE: Multiaxial CT images of the head were performed both before and after the intravenous administration of contrast to evaluate the major cerebral vessels. Maximum intensity projection images were also obtained. A dose lowering technique was utilized adhering to the principles of ALARA. COMPARISON: None. FINDINGS: There is no mass, hematoma, midline shift, or acute infarct. Visualized intracranial internal carotid arteries, distal vertebral arteries, and basilar artery are widely patent. There is no significant stenosis, occlusion, or aneurysm seen within the bilateral ACAs, MCAs, or pedorthist. Incidental note is made of a persistent left posterior circulation. This is considered to be a normal variant. IMPRESSION: 1. No acute intracranial abnormality. 2. No significant stenosis, occlusion, or aneurysm within the [place]. ACT 112: Negative or not required by law. Electronically signed by: Ashu Kim M.D. 05/01/2019 2:[address], HEAD CTA HISTORY: vertigo, expressive aphasia yesterday, headache TECHNIQUE: Multiaxial CT images of the head were performed both before and after the intravenous administration of contrast to evaluate the major cerebral vessels. Maximum intensity projection images were also obtained. A dose lowering technique was utilized adhering to the principles of ALARA. COMPARISON: None. FINDINGS: There is no mass, hematoma, midline shift, or acute infarct. Visualized intracranial internal carotid arteries, distal vertebral arteries, and basilar artery are widely patent. There is no significant stenosis, occlusion, or aneurysm seen within the bilateral ACAs, MCAs, or pedorthist. Incidental note is made of a persistent left posterior circulation. This is considered to be a normal variant. IMPRESSION: 1. No acute intracranial abnormality. 2. No significant stenosis, occlusion, or aneurysm within the [place]. ACT 112: Negative or not required by law. Electronically signed by: Ashu Kim M.D. 05/01/2019 2:[address] angio neck with con CLINICAL HISTORY: vertigo, expressive aphasia yesterday, [facility] COMPARISON STUDY: No previous studies for comparison. TECHNIQUE: CT angiography was performed from the aortic arch to the skull base. MIP imaging was performed. The patient was scanned in a dynamic helical fashion during intravenous administration of 120 cc of Optiray 320. A dose lowering technique was utilized adhering to the principles of ALARA. CT DOSE: Technique: CT angiogram of the carotid and vertebral arteries was obtained using intravenous contrast and 3-D reconstruction. NASCET criteria was utilized. Findings: There is a multinodular thyroid goiter. The left lobe nodule contains multiple calcifications. This has been described on prior ultrasonography. The right carotid revealed no evidence of aneurysm and no evidence of dissection. There is no evidence of hemodynamic significant stenosis. The left carotid revealed no evidence of hemodynamic significant stenosis. There is no evidence of aneurysm. There is no evidence of dissection. There is no evidence of hemodynamically significant vertebral stenosis. There is no evidence of vertebral dissection. IMPRESSION: No evidence of hemodynamically significant carotid or vertebral artery stenosis. No evidence of dissection. ACT 112: Negative or not required by law. Electronically signed by: Jamie Hooper M.D. 05/01/2019 2:17 PM ECG Data Attestation: I personally reviewed and interpreted this ECG as follows: Indication: + altered mental status Rate (beats per minute): 72 Rhythm: + normal sinus ECG [place]: + Normal ECG ST segments: no ST depression and no ST elevation ECG Findings: + Other (normal interval) Blood Pressure Blood Pressure Findings: Elevated blood pressure Blood Pressure Disposition: further management by hospitalist NEETA Narrative Differential diagnosis: Etiologies such as metabolic, infection, hypoglycemia, electrolyte abnormalities, cardiac sources, intracerebral event, toxicologic, neurologic, as well as others were entertained. The patient is a 69 year old female w/ PMHx of HTN who presents to the ED w/ CC of difficulty finding words beginning yesterday. Patient was seen and evaluated the bedside. The patient did present with suha rn for expressive aphasia which happened yesterday for approximate 1-1/2 hours. Subsequently did resolve but the patient was having some ambulatory dysfunction today. Patient does have a known history of hypertension hyperlipidemia. Patient currently has no focal deficits. Good [id number]-[id number] good igxj-ex-mwwh. Given the concern for TIA versus evolving stroke patient did have blood work completed along with CT angios of the head and neck. Patient's blood work is unremarkable. EKG does not show any evidence of A. fib. Patient is already on a full dose aspirin which she took this morning. The patient did have unremarkable blood work. CT of the head and CT angiography of the head and neck were also unremarkable. Given the patient's elevated ABCD 2 score I did recommend inpatient treatment for additional evaluation due to concern for possible TIA with expressive aphasia. I did speak the on-call hospitalist agreed to further evaluate treat the patient. Patient was admitted to the medicine service. Impression & Plan TIA (transient ischemic attack), Expressive aphasia Discharge Plan Visit Data *Final* Discharge Date/Time: 05/01/19 16:39 Chief Complaint: Referred by Doctor Stated Complaint: Referred by Doctor ED Provider: Puma Tsai Discharge Problem: TIA (transient ischemic attack), Expressive aphasia Patient Disposition: Admitted As Inpatient Discharge Instructions Interventions: ED Discharge Assessment Last Done: 05/01/19 16:39 The scribe's documentation has been prepared under my direction and personally reviewed by me in its entirety. I confirm that the note above accurately reflects all work, treatment, procedures, and medical decision making performed by me.
[2019-05-01] MEDS: MECLIZINE HCL 25 MG TAB PO PRN (19:59)
[2019-05-01] MEDS ORDERED: GADOBUTROL 65ML VIAL IV PRN (20:37)
[2019-05-01] MEDS ORDERED: TRAZODONE HCL 50 MG TAB PO SCH (21:00)
--- NOTE | 2019-05-01 21:17 | Magnetic Resonance Report ---
MR brain wo/w con HISTORY: 69 years-old Female ?TIA/CVA acutely altered mental status with dizziness COMPARISON: Head CT of same day TECHNIQUE: Multiplanar multisequence MRI of the brain was obtained both with and without the use of 9 .3 mL Gadavist FINDINGS: Architectural Designer localizer images demonstrate no gross extracranial abnormality. There is no restricted diffusio n to suggest acute or subacute infarct. Midline structures including the corpus callosum, brainstem, optic chiasm, pituitary and pineal glands appear unremarkable the sagittal T1 series. There is no cer ebellar tonsillar herniation. Degenerative changes are noted about the imaged cervical spine. No acute intracranial hemorrhage, midline shift, abnormal extra-axial collection, hydrocephalus or in tracranial mass. Moderate to extensive patchy T2/FLAIR hyperintensities are noted about the white mat ter of the bilateral cerebral hemispheres. No abnormal intra-axial or extra-axial enhancement. Cerebr al venous sinuses appear patent. Major flow voids appear patent and unremarkable. Mild mucosal thicke julien of the paranasal sinuses. Orbits are unremarkable. The skull and soft tissues are within normal limits. IMPRESSION: 1. No acute intracranial abnormality, specifically there is no evidence of acute or subacute infarct. 2. No abnormal enhancement. 3. Moderate to extensive T2/FLAIR hyperintensities throughout the white matter are suggestive of prob able chronic microvascular ischemic disease. ACT 112: Negative or not required by law. The above report was generated using voice recognition software. It may contain grammatical, syntax o r spelling errors. Electronically signed by: Omid Gallo M.D. 05/01/2019 9:16 PM
--- NOTE | 2019-05-01 22:20 | Electrocardiogram Report ---
Test Reason : Blood Pressure : / mmHG Vent. Rate : 072 BPM Atrial Rate : 072 BPM P-R Int : 152 ms QRS Dur : 080 ms QT Int : 436 ms P-R-T Axes : 090 025 057 degrees QTc Int : 477 ms Poor data quality, interpretation may be adversely affected Normal sinus rhythm with sinus arrhythmia Normal ECG When compared with ECG of 27-DEC-2016 10:27, QT has lengthened Confirmed by Isra Tinoco ([id number]) on 05/01/2019 10:20:30 PM Referred By: Confirmed By:Isra Tinoco
[2019-05-02 06:51] LABS: Estimated Average Glucose 114 mg/dl; Hemoglobin A1C 5.6 % (4.5-5.6)
[2019-05-02] MEDS: MECLIZINE HCL 25 MG TAB PO PRN (08:57)
[2019-05-02] MEDS ORDERED: NON-FORMULARY MEDICATION (Coenzyme Q10 [Co Q-10] 200 MG) PO SCH (09:00)
[2019-05-02] MEDS ORDERED: CLOPIDOGREL BISULFATE 75 MG TAB PO SCH (09:00)
[2019-05-02] MEDS ORDERED: ESCITALOPRAM OXALATE 20 MG TAB PO SCH (09:00)
[2019-05-02] MEDS ORDERED: ATORVASTATIN 40 MG TAB PO SCH (09:00)
[2019-05-02 11:06] LABS: Thyroid Stimulating Hormone 0.475 uIu/ml (0.300-4.500)
[2019-05-02 11:12] LABS: Estimated Average Glucose 114 mg/dl; Hemoglobin A1C 5.6 % (4.5-5.6)
--- NOTE | 2019-05-02 11:39 | Neurology Consultation ---
Date of Consultation May 02, 2019 Assessment & Plan (1) Hyperlipidemia: (2) Hypertension: (3) Word finding difficulty: Nelli Parker is a 69 yo woman w/ PMH of HTN, HLD, pAFIb on aspirin, chronic migraines, arthritis and depression who p/t [facility] with acute onset of transient word finding difficulty a/w headache, nausea, dizziness and gait imbalance. # Word finding difficulty a/w nausea, dizziness and gait imbalance: suspect that this is related to her ongoing headaches. She has longstanding dizziness with these headaches that likely represents vestibular migraine. No associated symptoms to make me think that this was a TIA (hypothetically could localize to a small lesion in the left inferior temporal lobe or thalamus, but again, would expect other co-occurring symptoms). - recommend treating her migraine with single dose of IV tylenol 1000mg/co mpazine/benadryl and 1L IVFs - she should start magnesium 400mg daily for migraine prevention - given prior stroke on MRI, she should consider discontinuing daily meloxicam and use tylenol as needed for arthritis pain. She should not be using any triptans either (can discuss alternatives in neuro clinic) - would restart verapamil (this can help with BP control and migraine prevention) - she should follow up in the neurology clinic for headache management in 6-8 weeks - she should consider changing to plavix 75mg daily for stroke prevention (will discuss in the outpatient setting whether she should start AC given pAFib) - would continue rosuvastatin as already doing given h/o statin induced myalgias and LDL almost at goal - complete TTE - no further neurological workup needed at this time (aside from above); after completion of TTE and single dose of migraine cocktail, she is stable from a neurological standpoint to return home - recommend PT referral for vestibular therapy on discharge Thank you for this interesting consult. Plan of care discussed with primary team. Please call or text with questions. (4) Chronic migraine without aura with status migrainosus, not intractable: History of Present Illness Attending Physician: Sandeep Mcginnis, DO History of Present Illness Nelli Parker is a 69 yo woman w/ PMH of HTN, HLD, chronic migraines, arthritis and depression who p/t [facility] with acute onset of transient word finding difficulty a/w headache, nausea, dizziness and gait imbalance. 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 Reported that she knew what she wanted to say but kept garbling her words and sentences didn't make sense to her or anyone else. Continued to have symptoms so asked to see if she had a facial droop (not present); denied any associated weakness, numbness or tingling during event. Presented to ED for further evaluation given c/f possible stroke. In ED, BP 148/89, HR 79, RR 18, satting 96% on room air. Labs showed WBC 7.2, Hb 13.9, Plts 209, INR 1.0, Cr 0.86, glucose 99, troponin negative. Calcium, magnesium and phosphorus all WNL. A1c 5.6, LDL 88. CTH (independent review) showed no hemorrhage or hypodensities, mild SVID. CTA head and neck showed no LVO, high grade stenosis or aneurysm. 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 Her language symptoms had completely resolved by presentation to the ED but headache and other symptoms have continued. On examination today, her neurological exam is non-focal. There is no nystagmus or other signs of significant peripheral vestibular dysfunction on exam. She reports having a headache for many years that will occur about 300 days of the year. Headache is bifrontal/retro-orbital a/w nausea, vomiting, photo- and phonophobia (similar to her current headache). She will often have dizziness, nausea and gait imbalance with prior headaches, but has never had word finding difficulty with prior headaches. Reports that the current headache has been present for about 2 weeks continuously and is similar in character to previous headaches. She also has long standing dizziness that she describes as room spinning a/w nausea and gait imbalance that is worsened by head turning (either direction) or movement. Dizziness lasts for about 5 seconds and resolves on it own. She does not take a daily preventative medication for headaches, and will rarely take a tylenol sinus for the most severe headaches. Average intensity 2/10, current intensity 3/10. Reports that she does take aspirin 325mg daily and low dose rosuvastatin given muscle cramps. Allergies Allergy/AdvReac Type Severity Reaction Status Date / Time bee venom protein (honey bee) Allergy Mild Verified 02/21/20 14:51 rosuvastatin AdvReac Unknown MUSCLE Verified 05/01/19 14:51 WEAKNESS,CRAMPS Home Medications Home Medications Medication Instructions Recorded Confirmed Type amoxicillin-pot clavulanate 1 tab PO BID 05/01/19 05/01/19 History cholecalciferol (vitamin D3) 2,000 unit PO QAM 05/01/19 05/01/19 History coenzyme Q10 [Co Q-10] 200 mg PO QAM 05/01/19 05/01/19 History escitalopram oxalate 20 mg PO DAILY 05/01/19 05/01/19 History fluticasone propionate [Flonase 1 spray INTRANASAL QAM PRN 05/01/19 05/01/19 History Allergy Relief] pdsobjvg-niqvk-[id number]-C-jamar-bor 1 tab PO QAM 05/01/19 05/01/19 History [Iejgmwmqrdq-Qbauy-GNX Complex] lisinopril 20 mg PO BID 05/01/19 05/01/19 History loratadine 10 mg PO QAM PRN 05/01/19 05/01/19 History meclizine 25 mg PO TID PRN 05/01/19 05/01/19 History meloxicam 15 mg PO QAM 05/01/19 05/01/19 History multivitamin 1 tab PO QAM 05/01/19 05/01/19 History rizatriptan 10 mg PO ONCE PRN 05/01/19 05/01/19 History rosuvastatin 5 mg PO Q OTHER DAY 05/01/19 05/01/19 History trazodone 50 mg PO HS 05/01/19 05/01/19 History verapamil 240 mg PO QAM 05/01/19 05/01/19 History Patient History Medical History (Updated 05/02/19 @ 11:34 by Ofe Moeller MD) Depression Hyperlipidemia (Chronic) Hypertension Migraine Surgical History (Updated 05/01/19 @ 15:35 by Alyx Burch DO) History of cholecystectomy History of hernia repair History of hysterectomy Family History (Updated 05/01/19 @ 15:34 by Alyx Burch DO) Other Diabetes Social History (Updated 05/01/19 @ 15:34 by Alyx Burch DO) Preferred Language: Tamazight Communication Ability: Effective 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 Physical Exam Physical Exam: General Exam: GEN: NAD, sitting in chair. HEENT: No conjunctival injection, no rhinorrhea. CV: RRR, no peripheral edema PULM: Nonlabored respirations on room air. Neuro Exam: MS: Awake and Alert. Oriented to person, place, and date. Speech fluent and appropriate without dysarthria or paraphasic errors. Language intact including naming, comprehension, repetition. Cognition and memory grossly intact. Attention intact. No neglect. CN: Visual lemus full. No extinction to double simultaneous stimuli. No optic disc edema on fundoscopic exam. PERRLA OU. EOMI without nystagmus. Facial sensation intact to LT. Facial muscles full and symmetric. Hearing intact to conversation. Uvula midline with symmetric palatal elevation. Shoulder shrug normal. Tongue midline. MOTOR: Normal bulk and tone. No pronator drift. BUE strength 5/5 at deltoids, biceps, triceps, wrist flexors and extensors, and hand grasp bilaterally. BLE strength 5/5 at iliopsoas, hamstrings, quadriceps, tibialis anterior, and gastrocnemius bilaterally. REFLEXES: 1+ at biceps, triceps, brachioradialis, patella and absent Achilles bilaterally. Flexor plantar responses bilaterally. SENSORY: Intact to LT without extinction to double simultaneous stimuli. Vibration and pinprick intact throughout. COORDINATION: No dysmetria or ataxia on uxzabc-tx-wxgt and wnwl-nd-uiud bilaterally. Normal Jossy bilaterally. GAIT: Normal gait and arm swing. Normal Romberg. Results & Data Vital Signs (Past 12 Hours) Vital Signs Temp Pulse Pulse Resp BP Pulse Ox 05/02/19 08:01 57 L 05/02/19 07:45 36.6 C 69 16 161/84 H 96 05/02/19 03:00 36.5 C 66 18 137/82 96 05/02/19 00:04 55 L PG Care Time/CCT Total # of Minutes Spent Total Time Spent with Patient: Total time spent is greater than 50% in spiritual care coordinator rdination of care (as documented) at patient's floor/unit and/or counseling patient: Coding Level of Care Code 69125 Initial Inpt Care Lvl 3 Diagnoses Hyperlipidemia E78.5 Hyperlipidemia type: unspecified Hypertension I10 Hypertension type: essential hypertension Word finding difficulty R47.89 Chronic migraine without aura with status migrainosus, not intractable G43.701 (1) Hyperlipidemia Hyperlipidemia type: unspecified Qualified Code(s): E78.5 - Hyperlipidemia, unspecified (2) Hypertension Hypertension type: essential hypertension Qualified Code(s): I10 - Essential (primary) hypertension
[2019-05-02] MEDS ORDERED: DiphenhydrAMINE HCL 50 MG/ML VIAL IV STA (13:29)
[2019-05-02] MEDS ORDERED: ACETAMINOPHEN 1,000 MG/100 ML VIAL IV STA (13:29)
[2019-05-02] MEDS ORDERED: LACTATED RINGER'S 1,000 ML IV ONE (13:45)
[2019-05-02] MEDS ORDERED: PROCHLORPERAZINE 10 MG in SYRINGE 8 ML IV ONE (13:45)
--- NOTE | 2019-05-02 13:54 | Discharge Summary ---
Date of Service May 02, 2019 Admission HPI Per Admitting Provider Nelli Parker is a 69-year-old female with history of hypertension, hyperlipidemia, migraine, remote history of atrial fibrillation on verapamil, no anticoagulation. She presents today with complaints of expressive aphasia noticed first yesterday around 1600. She states that she was unable to read and unable to speak. Reports that she knew what she wanted to say but was speaking nonsensically and having a difficult time finding and forming her words. reports that her speech was garbled and unclear. She also reports gait instability and dizziness as well as severe headache. Patient currently with acute sinusitis on Augmentin. She has 1 additional dose to take this evening to complete a 10-day course. She reports that she frequently has sinusitis about twice per year and when she gets it she gets a migraine headache as well as vertigo. She does report that the headache and vertigo today is more severe than her usual. Patient was seen by her PCP today and instructed to come to the ER. She feels that her aphasia and speech difficulties have resolved. Still complaining of headache, dizziness, gait instability ER course: Phenergan, normal saline solution Admission Exam Per Admitting Provider General: patient resting comfortably, NAD, non-toxic in appearance, AA&O x 4 Skin: warm, dry, intact, no rashes or lesions HEENT: NC/AT, PERRL, EOMI, no nystagmus, anicteric sclera, conjunctiva without injection, external ear normal to inspection and nontender, TMs with good cone of light, no evidence of infection, nares patent, + facial tenderness over maxillary and frontal sinuses, moist mucus membranes, dentition intact, no oropharyngeal lesions, neck supple, trachea midline, no LAD, no thyromegaly, no JVD Heart: +S1/S2, regular, no m/r/g Lungs: equal air entry bilaterally, no rales/rhonchi/wheezes Abd: +BS, soft, NT/ND, no masses/organomegaly/ascites Ext: warm, 2+ pulses in UE/LE bilaterally, no clubbing/cyanosis or edema Neuro: nonfocal, patient AA&O x 4, speech intact with very mild word finding difficulty, no facial droop, cranial nerves II through XII grossly intact, sensation to light touch intact, muscle strength 5 out of 5 in upper and lower extremities bilaterally, significant ataxia when getting patient up from bed Principal Diagnosis word finding difficulty (vestibular migraine vs less likely TIA) Discharge Exam General: In NAD Neuro: A&O x 4 this AM, CN 2-12 intact, strength 5/5 bilateral upper and lower extremities, sensation intact bilateral upper and lower extremities CV: RRR, no m/r/g Pulm: CTAB, equal breath sounds bilaterally, no increased work of breathing Abdomen: +BS, no TTP in all quadrants, non-distended LE: No LE edema, no calf tenderness Discharge Data Allergies Allergy/AdvReac Type Severity Reaction Status Date / Time bee venom protein (honey bee) Allergy Mild Verified 05/01/19 14:51 rosuvastatin AdvReac Unknown MUSCLE Verified 05/01/19 14:51 WEAKNESS,CRAMPS Consultations 05/01/19 14:29 ED Decision to Admit Stat 05/01/19 17:01 Consult Neurology Routine 05/02/19 13:33 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 Concern for vestibular migraine vs. TIA. Vestibular Migrain vs. TIA Presented with word finding difficulty, headache, dizziness and gait instability CT head no acute findings; CTA head/neck no HD significant stenosis MRI brain no acute findings, chronic microvascular ischemic disease EKG shows normal sinus rhythm echocardiogram pending Lipids TC 174, trig 186, HDL 49, LDL 88, TSH normal and A1c 5.6 Started on Plavix 75 mg p.o. daily Continue Rosuvastatin 5mg every other day (hx of myalgias) Continue co-Q10 Continue verapamil and lisinopril for HTN -Neurology consult: vestibular migraine unlikely to be TIA -Migraine cocktail provided per recommendation: 1L LR/compazine/benadryl/tylenol 1g IV -Stop taking rizatriptan for migraine headaches, will discuss alternative treatment at appt -Started on magnesium 400mg daily for migraine prophylaxis PT-stable for discharge home Hx of Afib Continue verapamil Follow up with neurology outpt to discuss anticoagulation Hypertension: Continue Lisinopril Hyperlipidemia: Continue Crestor 5 mg 3 days/week Continue co-Q10 Sinusitis: Hx of vertigo with sinus infections Patient with acute sinusitis diagnosis. Completed Augmentin therapy-last dose during hospitalization. Continue Flonase and saline nasal spray Meclizine as needed vertigo Arthritis Stop meloxicam per neurology recommendation, take tylenol arthritis instead Depression: Continue Lexapro (2) Hyperlipidemia: (3) Depression: (4) Hypertension: (5) TIA (transient ischemic attack): Total Time Total Time Spent Total Time Spent (In Minutes): <30 Discharge Plan Discharge Items Patient Disposition: Home - Self-Care Reason For Visit: TIA Discharge Diagnosis: Vestibular migraine Condition on Discharge: Good Activity: Resume your previous activity Non-emergency contact: Primary Care Provider Call non-emergency contact if: you have any medication questions and your symptoms worsen Follow-up/Referrals: Robert Gerardo MD [Primary Care Provider] - Diet: Carb Consistent or DM2 Addtl Attending Provider Instructions: Ms. Parker you were admitted for concern of word finding difficulty, headache, and dizziness. Your work up was reassuring. Our neurologist, Dr. Moeller also saw you. She believes you are having a vestibular migraine (a type of migraine that also throws off your balance). You received a migraine cocktail. We also made some changes to your medications. Please follow the instructions below: -Stop taking a baby aspirin daily, instead you are being prescribed Plavix (clopidogrel) 75mg daily - [facility] [place] -Continue taking your current cholesterol medication, Rosuvastatin as prescribed -Given you had a previous stroke noted on your MRI, the neurologist recommended you stop taking meloxicam for your arthritis and instead take tylenol arthritis as needed for pain; she also recommended stopping your migraine pill, Rizatriptan. She will follow up with you in clinic to find an alternative medication -We have prescribed you magnesium 400mg 1 pill daily to help prevent migraine headaches as recommended by the neurologist - prescription sent to [facility] [place] -We have also provided you a script for outpatient physical therapy to help with your migraine headaches, [facility] provides this special physical therapy and others close to you may also provide this special therapy -Please follow up with neurology in 1-2 weeks, we have requested an appointment on your behalf. Here is their contact information as well Dr. Moeller [phone], [address], [place] [address] -Follow up with your primary care doctor in 2-3 days Pending Studies at Discharge: No Stand-Alone Forms: My [facility], Smoking Cessation Medications and DC Order Prescriptions: New clopidogrel 75 mg Tablet 75 mg PO QAM Qty: 30 RF: 0 magnesium oxide 400 mg (241.3 mg magnesium) tablet 400 mg PO DAILY Qty: 30 RF: 0 Continued multivitamin Tablet 1 tab PO QAM RF: 0 trazodone 50 mg Tablet 50 mg PO HS RF: 0 lisinopril 20 mg tablet 20 mg PO BID RF: 0 meclizine 25 mg Tablet 25 mg PO TID PRN (Reason: Dizziness) RF: 0 verapamil 240 mg Tablet Extended Release 240 mg PO QAM RF: 0 fluticasone propionate [Flonase Allergy Relief] 50 mcg/actuation Duck,Suspension 1 spray INTRANASAL QAM PRN (Reason: Allergy Symptoms) RF: 0 loratadine 10 mg Tablet 10 mg PO QAM PRN (Reason: Allergy Symptoms) RF: 0 escitalopram oxalate 20 mg Tablet 20 mg PO DAILY RF: 0 rosuvastatin 5 mg Tablet 5 mg PO Q OTHER DAY RF: 0 coenzyme Q10 [Co Q-10] 200 mg Capsule 200 mg PO QAM RF: 0 Uqdyfnxczfe-Flwok-NMU Complex 109-713-96-0.5 mg Tablet 1 tab PO QAM RF: 0 cholecalciferol (vitamin D3) 2,000 unit Tablet,Chewable 2,000 unit PO QAM RF: 0 Discontinued meloxicam 15 mg Tablet 15 mg PO QAM RF: 0 rizatriptan 5 mg Tablet,Disintegrating 10 mg PO ONCE PRN (Reason: Migraine Headache) RF: 0 amoxicillin-pot clavulanate 875-125 mg tablet 1 tab PO BID RF: 0 Discharge Orders: Discharge Order (Routine); Ordered 05/02/19 Ordered By: Davian Lin Admission Data Admit Date/Time: 05/01/19 15:14 Attending Provider: Sandeep Mcginnis Admit Provider: Alyx Burch Primary Care Provider: Robert Gerardo Other Providers: Alyx Burch ; Ofe Moeller Supervising Physician Co-Signing Physician Notes I personally examined the patient and verified all flores points of history and exam, discussed case, and agree with decision making with Dr Lin. feeling better. would like to go home. vitals noted nad heent nc at mmm breathing unlabored no accessory muscles neuro input appreciated. difficulty word finding - migranous vs TIA - plavix, follow for ?afib as outpt; stop mobic. treat migraine. stable for home. otherwise as above Resident Activity Tracking Resident Involvement: Resident Care Provided Care Provided: Adult Hospital Medicine
--- NOTE | 2019-05-02 15:50 | Billing Data ---
Date of Service May 02, 2019 Coding Level of Care Code 37498 OBS Care - Discharge
== END 2019-05-02 17:50 | disposition home or self-care (01) ==
LOC: ED 11:52 → 2W 11:52 → SUATTDRO 15:14 → 2W 16:39

== ENCOUNTER 2023-12-14 15:43 | Inpatient (IN) ==
--- OUTSIDE RECORDS SUMMARY | 2023-12-14 15:53 | External Medical Summary | Continuity of Care Document ---
Author Name Unknown Organization [facility] [address] [facility] 1 Address [address] [place], [place] [id number] Care Team Providers Care Director Of Workforce Development Name Role Phone Robert Gerardo Primary Care Physician [phone] [facility] [id number] Date(s): 08/12/23 - 08/12/23 [facility] 303 [facility] 1 [facility] 303 [facility] 1 [place], [place] [phone] Encounter Diagnosis Mixed hyperlipidemia(Final) - Other specified abnormal findings of blood chemistry(Final) - Discharge Disposition: Home or Self Care Attending Physician: MD Gerardo Juan Referring Physician: MD Gerardo Juan Allergies, Adverse Reactions, Alerts Substance Criticality Severity Reaction Reaction Severity Status simvastatin leg cramp Active hydrochlorothiazide-t riamterene hypercalcemia Active Toprol-XL chest pain and sob A ctive Crestor muscle weakness Acti ve Immunizations Given and Recorded Vaccine Date Status Refusal Reason influenza virus vaccine, inactivated 11/29/22 Give n influenza virus vaccine, inactivated 11/30/20 Give n influenza virus vaccine, inactivated 01/22/20 David rded influenza virus vaccine, inactivated 12/31/18 Give n influenza virus vaccine, inactivated 04/10/18 Give n influenza virus vaccine, inactivated 12/14/16 Give n influenza virus vaccine, inactivated 12/09/14 Give n influenza virus vaccine, inactivated 01/18/14 Give n influenza virus vaccine, inactivated 01/14/13 Give n influenza virus vaccine, inactivated 01/03/12 Give n SARS-CoV-2 (COVID-19) mRNA BNT-162b2 vax 05/24/20 Recorded SARS-CoV-2 (COVID-19) mRNA BNT-162b2 vax 04/26/20 Recorded pneumococcal 13-valent vaccine 10/19/15 Given typhoid vaccine, live 12/27/14 Recorded hepatitis A adult vaccine 12/09/14 Given pneumococcal 23-valent vaccine 07/19/14 Given tetanus/diphtheria/pertuss, acel (Tdap) 07/19/14 G iven zoster vaccine live 02/25/14 Recorded Medications clopidogrel 75 mg oral tablet Start: 05/13/23 4:58:00 PM EST, 1 tab, PO, Daily, Disp# 90 tab, Refills: 3, Pharmacy: [facility] Start Date: 05/13/23 Status: Ordered Co-Q10 200 mg oral capsule Start: 01/16/11 11:20:00 AM EST, PO, Daily, cap Start Date: 01/16/11 Status: Ordered escitalopram 20 mg oral tablet Start: 05/24/23 3:27:00 PM EDT, 1 tab, PO, Daily, Disp# 90 tab, Refills: 3, Pharmacy: [facility] Start Date: 05/24/23 Status: Ordered Glucosamine & Chondroitin with MSM Start: 02/07/10 8:41:07 AM EST, 1 tab, PO, Daily, Refills: 0, No Dosage Noted with at least 8 ounces of water, current medication from another provider Start Date: 02/07/10 Status: Ordered lisinopril 20 mg oral tablet Start: 06/14/23 10:38:00 AM EDT, 1 tab, PO, bid, Disp# 180 tab, Refills: 3, [facility] Start Date: 06/14/23 Status: Ordered magnesium oxide 400 mg (241.3 mg elemental magnesium) oral tablet TAKE 1 TABLET BY MOUTH ONCE DAILY Start Date: 05/08/19 Status: Ordered meclizine 25 mg oral tablet Start: 05/01/19 10:59:00 AM EST, 1 tab, PO, tid, Disp# 60 tab, Refills: 1, PRN: as needed for dizziness, Pharmacy: [id number] Start Date: 05/01/19 Status: Ordered multivitamin Start: 02/07/10 8:40:58 AM EST, Refills: 0, One Daily No Dosage Noted, current medication from another provider Start Date: 02/07/10 Status: Ordered pravastatin 10 mg oral tablet Start: 05/23/23 9:01:00 AM EDT, 1 tab, PO, Daily, Disp# 90 tab, Refills: 3, Pharmacy: [facility] Start Date: 05/23/23 Status: Ordered Shingrix intramuscular injection Start: 11/29/22 8:21:00 AM EDT, 0.5 mL, IM, ONCE, Disp# 1 each, Refills: 1, repeat dose in 2 to 6 months. have shot in pharamcy, Pharmacy: [facility]/pharmacy #[id number] Start Date: 11/29/22 Status: Ordered traZODone 50 mg oral tablet Start: 05/13/23 5:01:00 PM EST, See Instructions, Disp# 90 tab, Refills: 3, TAKE 1 TABLET BY MOUTH ATBEDTIME Start Date: 05/13/23 Status: Ordered Tylenol Caplet Extra Strength 500 mg oral tablet Start: 05/23/20 9:55:00 AM EDT, 1 tab, PO, bid, PRN: as needed for pain Start Date: 05/23/20 Status: Ordered verapamil 240 mg/12 hours oral tablet, extended release Start: 03/06/23 3:09:00 PM EST, 1 tab, PO, qAM, Disp# 90 tab, Refills: 3, Pharmacy: [facility] Start Date: 03/06/23 Status: Ordered Vitamin D3 2000 intl units oral tablet Start: 10/19/15 1:31:00 PM EDT, See Instructions, Disp# 100 tab, 2000 IU daily, other Start Date: 10/19/15 Status: Ordered Problem List Condition Confirmation Course Effective Dates Status H ealth Status Informant Allergic rhinitis Confirmed Active ANXIETY Confirmed Active BENIGN ESSENTIAL HYPERTENSION Confirmed 02/07/10 Active CVA (cerebrovascular accident) 1 Confirmed 04/24/19 Active Colonoscopy 2 Confirmed Active DEPRESSION Confirmed Active Headache Confirmed Active Insomnia Confirmed Active Migraine Confirmed Active Vestibular migraine 3, 4 Confirmed Active MIXED HYPERLIPIDEMIA Confirmed 02/07/10 Active Obesity Confirmed Active Osteopenia Confirmed Active Thyroid nodule 5, 6, 7 Confirmed Active TIA (transient ischemic attack) Confirmed Active Weight disorder Confirmed Active 1Brian 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 Ofe Moeller's inpatient consultation note ([facility] [place] [facility]). Patient [place] plavix. 07208: normal 3sees neurology 4HA with dizziness. Should avoid triptan per neurology 17:09 - Hockenberry, [employer], Malini Multinodular myticycstic thyroid essentially unchanged given differences in scan technique comparedto the prior study. : FNA: benign 7Thyroid US 07/26/2014: multinodular thyroid gland. A dominant calcification containing nodule in theleft lower pole 3.2cm as well as a large solid and cystic noduel in the right isthmus measuring 3.0cm. Procedures Procedure Date Related Diagnosis Body Site Status X-ray of both knees 1 11/30/22 Com pleted Mammogram - screening 2 05/15/22 C ompleted Mammogram - screening 3 01/30/21 C ompleted Bone density scan 4 08/22/[address] of head 5 04/20/20 Completed Mammogram 6 01/27/[address] angiogram of neck and thorax 7 05/01/[address] of head and angiogram 8 05/01/19 Completed Colonoscopy 9 02/16/19 Completed Mammogram 10 01/23/19 Completed Mammogram 11 12/13/17 Completed Laparoscopic cholecystectomy 01/02/17 Completed Pathology 12 01/02/17 Completed Ultrasound 13 11/26/16 Completed Mammogram - screening 14 11/08/16 Completed Ultrasound scan of thyroid 15 08/01/16 Completed Mammogram - screening 16 11/08/15 Completed CXR - Chest X-ray 17 09/05/15 Comp leted Echocardiogram 18 09/05/15 Complet ed X-ray left foot 3 views 19 02/22/15 Completed Mammogram 20 11/04/14 Completed Biopsy of thyroid using ultr asound guidance 21 08/26/14 Completed needle aspiration bx of the thyroid under us guidance x 2 08/26/14 Completed Bone density scan 22 07/26/14 Comp leted US scan of thyroid 23 07/26/14 Com pleted Colonoscopy 08/09/06 Completed TRISTAN & BSO Completed Ventral Hernia Repair Com pleted 1Comparison None available at the time of this dictation FINDINGS There is no evidence of an acute fracture Degenerative changes are seen in the knee joints bilaterally, most prominent in the lateral and patellofemoral compartment with joint space narrowing and osteophyte formation Calcific density is in the left suprapatellar space No joint effusion is seen No soft tissue abnormality is seen IMPRESSION Degenerative changes without evidence of acute injury 2Impression: There is no mammographic evidence of malignancy. A 1 year screening mammogram is recommended. (05/16/2023) The patient will receive written notification of the results. 3There is no mammographic evidence of malignancy. A 1 year screening mammogram is recommended. The patient will receive written notification of the results. 4T/Score -1.4 10 year probability of fracture: Major Osteoprorotic - 9/9% Hip - 1.5% Population - [place] () Based on DualFemur (Left) Neck BMD 5There is no hemorrhage, mass effect, or evidence of acute territorial ischemia by CT criteria. 6there is no mammographic evidence of malignancy . 7No evidence of hemodynamically signifiant carotid or vertebral artery stenosis. No evidence of dissection. 81. No acute intracranial abnormality 2. NO singificant stenosis, occlusion or aneurysm within the [place] of [place]. 9COLO to cecum, diverticulosis, repeat colo 10 years 10Cat 1- Negative Recommend a f/u in 1 year. 11Cat 1- negative 12GALLBLADDER (cholecystectomy): 1. Mild chronic choleycstitis, cholesterolosis, cholesterol polyps, and cholelithiasis are all seen. 2. No tumor is seen. 13RUQ, abd Cholelithiasis. No gallbladder wall thickening No biliary ductal dilatation 14There is no mammographic evidence of malignancy. A 1 year screening mammogram is recommended. The patient will receive written notification of the results. 15Multinodular myticycstic thyroid essentially unchanged given differences in scan technique comparedto the prior study. 16Impression: There is no mammographic evidence of malignancy. a 1 year screening mammogram is recommended. The patient will receive written notification of the results. 17No active disease in chest 181. Normal stress echocardiogram at 8.6 METS and a peak heart rate of greater than 100% predicted maximum. 2. No exercise induced chest pain. 3. No EKG changes. 4. Baseline echocardiogram notes normal left ventricular systolic function and evidence of diastolic dysfunction. 19Mild degenerative changes seen within the left foot. No fractures. 20There is no mammographic evidence of malignancy. A 1yr screening mammogram is recommended. The pt will receive written notification of results. 21Benign thyroid aspirate--the specimen contains throid epithelium, colloid and cyst contents. 22T-score 1.2 normal 23Impression: Multinodular thyroid gland as above. The appearance is consistent with the reported history of thyroid goiter. There is a dominant calcification containing nodule in the left lower pole measuring up to 3.2 cm, as well as a large solid and cystic nodule in the right aspect of the isthmus measuring up to 3.0 cm. Fine needle aspiration of both of these nodules is recommended. Results Laboratory List Name Date ALT Level (ALT) 08/12/23 Free T3 (T3, FREE) 08/12/23 Lipid Profile (LIPOPROTEINS) 08/12/23 T4, Free (T4, FREE) 08/12/23 Thyroid Stimulating Hormone (TSH) 08/12/23 Most recent to oldest [Reference Range]: 1 Non-HDL 113 mg/dL 1 (08/12/23 10:06 AM) ALT [<35 unit/L] 17 unit/L 2 (08/12/23 10:06 AM) Chol/HDL 3 (08/12/23 10:06 AM) Chol [125-200 mg/dL] 188 mg/dL (08/12/23 10:06 AM) HDL [>35 mg/dL] 75 mg/dL (08/12/23 10:06 AM) LDL Chol, Calculated [50-130 mg/dL] 91 m g/dL (08/12/23 10:06 AM) Free T4 [0.70-1.48 ng/dL] 0.79 ng/dL 3 (08/12/23 10:06 AM) TG [<200 mg/dL] 109 mg/dL (08/12/23 10:06 AM) TSH [0.47-4.68 uIU/mL] 0.21 uIU/mL 4 *LOW* (08/12/23 10:06 AM) Free T3 [2.0-4.4 pg/mL] 2.9 pg/mL (08/12/23 10:06 AM) 1Result Comment: Testing Performed By: Dept of Pathology [facility] [address], [address], [place] [address] 2Result Comment: Testing Performed By: Dept of Pathology [facility] [address], [address], [place] [address] 3Result Comment: Testing Performed By: Dept of Pathology [facility] [address], [address], [place] [address] 4Result Comment: Testing Performed By: Dept of Pathology [facility] [address], [address], [place] [address] Social History Social History Type Response Smoking Status Never smoked cigaret abdi Sex Female Patient Care team information Care Team Personnel Name: MD Gerardo Juan Position: Physician - Family Med Member Role: Primary Care Provider Address: Address: [address] [place] [id number] Care Team Related Persons Name: SUGAR RUBI Address: home [address], [place] [phone] Name: SUGAR RUBI Address: home [address], [place] [phone]
--- OUTSIDE RECORDS SUMMARY | 2023-12-14 15:53 | External Medical Summary | Continuity of Care Document ---
Author Name Unknown Organization [address] Address [address] [place], [place] [id number] Care Team Providers Care Digital Marketing Executive Name Role Phone Robert Gerardo Primary Care Physician [phone] [phone] Date(s): 10/21/23 - 10/21/[address], [address] [place] [address] [phone] Discharge Disposition: Home or Self Care Attending Physician: DO Ramírez Jason D Referring Physician: DO Ramírez Jason D Allergies, Adverse Reactions, Alerts Substance Criticality Severity Reaction Reaction Severity Status pravastatin leg pain and weakness Active simvastatin leg cramp Active Crestor muscle weakness Acti ve Toprol-XL chest pain and sob A ctive hydrochlorothiazide- triamterene hypercalcemia Active Immunizations Given and Recorded Vaccine Date Status [...] 3, Pharmacy: [facility] Start Date: 05/24/23 Status: Ordered Glucosamine & Chondroitin with MSM Start: 02/07/10 8:41:07 AM EST, 1 tab, PO, Daily, Refills: 0, No Dosage Noted with at least 8 ounces of water, current medication from another provider Start Date: 02/07/10 Status: Ordered lisinopril 20 mg oral tablet Start: 06/14/23 10:38:00 AM EDT, 1 tab, PO, bid, Disp# 180 tab, Refills: 3, Pharmacy: [facility] Start Date: 06/14/23 Status: Ordered magnesium oxide 400 mg (241.3 mg elemental magnesium) oral tablet TAKE 1 TABLET BY MOUTH ONCE DAILY Start Date: 05/08/19 Status: Ordered meclizine 25 mg oral tablet Start: 05/01/19 10:59:00 AM EST, 1 tab, PO, tid, Disp# 60 tab, Refills: 1, PRN: as needed for dizziness, Pharmacy: [id number] Start Date: 05/01/19 Status: Ordered multivitamin Start: 02/07/10 8:40:58 AM EST, Refills: 0, One Daily No Dosage Noted, current medication from another provider Start Date: 02/07/10 Status: Ordered traZODone 50 mg oral tablet [...] daily, other Start Date: 10/19/15 Status: Ordered Zetia 10 mg oral tablet Start: 10/04/23 9:32:00 AM EDT, 1 tab, PO, Daily, Disp# 90 tab, Refills: 3, Pharmacy: [facility] Start Date: 10/04/23 Status: Ordered Problem List Condition Confirmation Course [...] Active Obesity Confirmed Active Osteopenia Confirmed Active Statin intolerance Confirmed Active Thyroid nodule 5, 6, 7 Confirmed Active TIA (transient ischemic attack) Confirmed Active Weight disorder Confirmed Active 1Brian 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 Ofe Moeller's inpatient consultation note ([facility] [place] neurology). Patient was [place] on plavix. 18109: normal 3sees neurology 4HA with dizziness. Should avoid triptan per neurology 17:09 - Hocjenniferberry, [employer], Malini Multinodular myticycstic thyroid essentially unchanged given [...] singificant stenosis, occlusion or aneurysm within the [place] of [place]. 9COLO to cecum, diverticulosis, repeat [...] of both of these nodules is recommended. Social History Social History Type Response Smoking Status Never smoked cigaret abdi Sex Female Sex Representation Female (finding) Patient Care team information Care Team Personnel Name: MD Gerardo Juan Position: Physician - Family Med Member Role: Primary Care Provider Address: [address] [place] [phone] [place] Care Team Related Persons Name: SUGAR RUBI Name: SUGAR RUBI
--- OUTSIDE RECORDS SUMMARY | 2023-12-14 15:53 | External Medical Summary | Continuity of Care Document ---
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 Name Role Phone Robert Gerardo Primary Care Physician [phone] Encounter [facility] [id number] Date(s): 08/15/23 - 08/15/[address] [address] [phone] Encounter Diagnosis Anxiety(Discharge Diagnosis) - 08/14/23 Low TSH level(Discharge Diagnosis) - 08/14/23 Hyperlipidemia(Discharge Diagnosis) - 08/14/23 BENIGN ESSENTIAL HYPERTENSION(Discharge Diagnosis) - 08/14/23 Statin intolerance(Discharge Diagnosis) - 08/15/23 Fatigue(Discharge Diagnosis) - 08/15/23 Insomnia(Discharge Diagnosis) - 08/15/23 Discharge Disposition: Home or Self Care Attending Physician: MD Gerardo Juan Referring Physician: MD Gerardo Juan Allergies, Adverse Reactions, Alerts Substance Criticality Severity Reaction Reaction Severity Status pravastatin leg pain and weakness Active simvastatin leg cramp Active Toprol-XL chest pain and sob A ctive hydrochlorothiazide- triamterene hypercalcemia Active Crestor muscle weakness Acti ve Assessment and Plan Extracted from: Title:Office Visit Note Author:MD Gerardo Juan [place] e:08/15/23 1.Anxiety Status: chronic, controlled. Data: EMR. Goal: controlled and stable. Plan: continue [id number] dailyand relaxation strategies. 2.Low TSH level Mild.asymptomatic with normal free T3 and T4. 3.Hyperlipidemia Status: chronic, uncontrolled. Data: EMR. Goal: LDL<70 Plan: refer to cardiology 4.BENIGN ESSENTIAL HYPERTENSION Status: chronic, controlled. Data: EMR. Goal: BP<140/90 Plan: continue current treatment plan. 5.Statin intolerance Status: chronic, uncontrolled. Data: EMR. Goal: resolution Plan: stop pravastatin.refer to cardiology 6.Fatigue Status: new onset. undifferentiated. Data: EMR. Goal: resolution Plan: suspect from verapamil SE. advised takingverapamilin evening. 7.Insomnia After takingverapamil in evening, if sleeps well, may consider araceli down trazodone. Check labs prior to next visit: lipid, CMP, TSH, freeT3 and T4,CBC, UA, urine microalbumin/creatinine ratio. BTO in 12/2023 fro as scheduled. Immunizations Given and Recorded Vaccine Date Status [...] 1, PRN: as needed for dizziness, Pharmacy: [id number] Start Date: 05/01/19 Status: Ordered multivitamin Start: [...] daily, other Start Date: 10/19/15 Status: Ordered Mental Status 08/15/23 Barriers to Learning one year None evide nt Mandatory Health Literacy Documentation Yes Health Literacy Communication Barriers N ever Primary Language [place] Problem List Condition Confirmation Course Effective Dates [...] to Dr. Ofe Moeller's inpatient consultation note ([facility]. [address]: normal 3sees neurology 4HA with dizziness. 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 : FNA: benign 7Thyroid US 07/26/2014: multinodular thyroid gland. A dominant calcification containing nodule in theleft lower pole 3.2cm as well as a large solid and cystic noduel in the right isthmus measuring 3.0cm. Diagnosis Diagnosis Type Effective Dates Health Status Clinical Service Informant Anxiety Discharge Diagnosis 08/14/23 Non-Specified Hyperlipidemia Discharge Diagnosis 08/14/23 Non-Specified Low TSH level Discharge Diagnosis 08/14/23 Non-Specified BENIGN ESSENTIAL HYPERTENSION Discharge Diagnosis 08/14/23 Non-Specified Statin intolerance Discharge Diagnosis 08/15/23 Non-Specified Fatigue Discharge Diagnosis 08/15/23 Non-Specified Insomnia Discharge Diagnosis 08/15/23 Non-Specified Procedures Procedure Date Related Diagnosis Body Site [...] singificant stenosis, occlusion or aneurysm within the [place]. 9COLO to cecum, diverticulosis, repeat [...] of both of these nodules is recommended. Vital Signs Most recent to oldest [Reference Range]: 1 Patient Weight 84.2 kg (08/15/23 10:39 AM) Heart Rate 76 bpm (08/15/23 10:39 AM) Respiratory Rate 17 br/min (08/15/23 10:39 AM) Blood Pressure 126/88mmHg (08/15/23 10:39 AM) Social History Social History Type Response Smoking Status Never smoked cigaret abdi Sex Female [facility] Outpt Note * MD Gerardo Juan: PERFORM Event Display: [facility] Outpt Note Authored Date: [id number] Chief Complaint 3 month follow up on labs. History of Present Illness feels good, no c/o. No SE from meds. mairastorwas changed to pravastatin 10mg 3 months ago due to muscle weakness.still lots of leg pain andweakness. balance is off, fell afew times. Was having more anxiety 3 months ago, tried relaxation strategies.helped. Hx oflow TSh asymptomatic. at last OV. within thelast year,feels tiredjust in morning about1 hour after taking medications( verapamil, lisinopril,plavix,lexaproand suppls), lasts about 1 hour. started after takingverapamil. sleeps ok with trazodone and melatonin. 30 Day Labs Last Updated 08/12/23 21:35 08/12/23 1006 Chol/HDL3 Tsfw722 HDL75 LDL Chol, Yzzjeadqem47 TG109 Non-TJM634 Free T40.79 TSH0.21L Free T32.9 ALT17 Physical Exam Vitals & Measurements HR:76(Monitored) RR:17 BP:126/88 SpO2:96% WT:84.2kg WT:84.200kg(Dosing) PHQ2 Data(Data Documented on:08/15/2023 10:39) Emotional health assessment NEGATIVE GENERAL: A&Ox3. No acute distress. Affect and speech appropriate. HEENT: PERRLA, EOMI, Conjunctivae clear. NECK: Supple, No lymphadenopathy. No carotid bruits. HEART: RRR, normal S1, S2. No murmurs, gallops or clicks. LUNGS: breathing not labored, breathing sound clear, breathing sound equal bilaterally, no rales, no wheezing. ABDOMEN: Positive bowel sound, soft, nontender, non-distended. No hepatosplenomegaly noted. No mass. EXTREMITIES: No edema, clubbing or cyanosis. Assessment/Plan 1.Anxiety Status: chronic, controlled. Data: EMR. Goal: controlled and stable. Plan: continue [id number] dailyand relaxation strategies. 2.Low TSH level Mild.asymptomatic with normal free T3 and T4. 3.Hyperlipidemia Status: chronic, uncontrolled. Data: EMR. Goal: LDL<70 Plan: refer to cardiology 4.BENIGN ESSENTIAL HYPERTENSION Status: chronic, controlled. Data: EMR. Goal: BP<140/90 Plan: continue current treatment plan. 5.Statin intolerance Status: chronic, uncontrolled. Data: EMR. Goal: resolution Plan: stop pravastatin.refer to cardiology 6.Fatigue Status: new onset. undifferentiated. Data: EMR. Goal: resolution Plan: suspect from verapamil SE. advised takingverapamilin evening. 7.Insomnia After takingverapamil in evening, if sleeps well, may consider araceli down trazodone. Check labs prior to next visit: lipid, CMP, TSH, freeT3 and T4,CBC, UA, urine microalbumin/creatinine ratio. BTO in 12/2023 fro HM as scheduled. Attestation Pre-visit plannin min [place]-pawj visit:20 min Post-visit:0 min Total visit time: 30 min Problem List/Past Medical History Ongoing Allergic rhinitis ANXIETY BENIGN ESSENTIAL HYPERTENSION Colonoscopy CVA (cerebrovascular accident) DEPRESSION Headache Insomnia Migraine MIXED HYPERLIPIDEMIA Obesity Osteopenia Statin intolerance Thyroid nodule TIA (transient ischemic attack) Vestibular migraine Weight disorder Resolved Gallstones GERD (gastroesophageal reflux disease) History of Clostridioides difficile colitis Impaired fasting glucose MALIGNANT NEOPLASM OF UTERINE ADNEXA, UNSPECIFIED Subclinical hyperthyroidism Uterine polyp Ventral hernia Procedure/Surgical History X-ray of both knees| Service Date: 11/30/2022Mammogram - screening| Service Date: 05/15/2022Mammogram - screening| Service Date: 1Bone density scan| Service Date: 1CTof head| Service Date: 04/20/2020Mammogram| Service Date: 01/27/2020CT angiogram of neck and thorax| Service Date: 05/01/2019CT of head and angiogram| Service Date: 05/01/2019Colonoscopy|Service Date: 02/16/2019Mammogram| Service Date: 01/23/2019Mammogram| Service Date: 12/13/2017Pathology| Service Date: 01/02/2017Laparoscopic cholecystectomy| Service Date: 01/02/2017Ul trasound| Service Date: 11/26/2016Mammogram - screening| Service Date: 11/08/2016Ultrasound scan of thyroid| Service Date: 08/01/2016Mammogram - screening| Service Date: 11/08/2015Echocardiogram| Service Date: 09/05/2015CXR - Chest X-ray| Service Date: 09/05/2015X-ray left foot 3 v iews| Service Date: 02/22/2015Mammogram| Service Date: 11/04/2014Biopsy of thyroid using ultrasound guidance| Service Date: 08/26/2014needle aspiration bx of the thyroid under us guidance x 2| Service Date: 08/26/2014Bone density scan| Service Date: 07/26/2014US scan of thyroid| Service Date: 07/26/2014 Colonoscopy| Service Date: 08/09/2006 TRISTAN & BSO Ventral Hernia Repair Medications acetaminophen(Tylenol Caplet Extra Strength 500 mg oral tablet), 500 mg= 1 tab, PO, bid, PRN cholecalciferol(Vitamin D3 2000 intl units oral tablet), See Instructions chondroitin/glucosamine/methylsulfonylmethane(Glucosamine & Chondroitin with MSM), 1 tab, PO, Daily clopidogrel(clopidogrel 75 mg oral tablet), 1 tab, PO, Daily, 3 refills escitalopram(escitalopram 20 mg oral tablet), 1 tab, PO, Daily lisinopril(lisinopril 20 mg oral tablet), 1 tab, PO, bid magnesium oxide(magnesium oxide 400 mg (241.3 mg elemental magnesium) oral tablet) meclizine(meclizine 25 mg oral tablet), 25 mg= 1 tab, PO, tid, PRN, 1 refills multivitamin traZODone(traZODone 50 mg oral tablet), See Instructions, 3 refills ubiquinone(Co-Q10 200 mg oral capsule), PO, Daily verapamil(verapamil 240 mg/12 hours oral tablet, extended release), 1 tab, PO, qAM Allergies Crestormuscle weakness Toprol-XLchest pain and sob hydrochlorothiazide-triamterenehypercalcemia pravastatinleg pain and weakness simvastatinleg cramp Social History Smoking Status Never smoked cigarettes Alcohol - Denies Alcohol Use Exercise - Regular exercise Exercise type:Walking - Comments: strengthening exercise Substance Abuse - Denies Substance Abuse Tobacco - Denies Tobacco Use Family History Arthritis: Mother. Cataract: Mother. Diabetes: Mother. Fibromyalgia..: Mother. High Blood Pressure: Mother, Father and Brother. Melanoma: Mother. Skin cancer: Mother. Health Status Family Member(s) Immunizations Vaccine Date Status influenza virus vaccine, inactivated 11/29/2022 Given influenza virus vaccine, inactivated 11/30/2020 Given SARS-CoV-2 (COVID-19) mRNA BNT-162b2 vax 05/24/2020 Recorded SARS-CoV-2 (COVID-19) mRNA BNT-162b2 vax 04/26/2020 Recorded influenza virus vaccine, inactivated 01/22/2020 Recorded influenza virus vaccine, inactivated 12/31/2018 Given influenza virus vaccine, inactivated 04/10/2018 Given influenza virus vaccine, inactivated 12/14/2016 Given pneumococcal 13-valent vaccine 10/19/2015 Given typhoid vaccine, live 12/27/2014 Recorded hepatitis A adult vaccine 12/09/2014 Given influenza virus vaccine, inactivated 12/09/2014 Given pneumococcal 23-valent vaccine 07/19/2014 Given tetanus/diphtheria/pertuss, acel (Tdap) 07/19/2014 Given zoster vaccine live 02/25/2014 Recorded influenza virus vaccine, inactivated 01/18/2014 Given influenza virus vaccine, inactivated 01/14/2013 Given influenza virus vaccine, inactivated 01/03/2012 Given Recommendations Health Maintenance Pending(in the next year) OverDue Medicare Annual Wellness Visit due10/12/22and every 1year Due Adult COVID-19 Vaccination due08/15/23Unknown Frequency Adult Social Determinants of Health Screening due08/15/23Unknown Frequency Shingles Vaccine due08/15/23One-time only Due In Future Adult Influenza Vaccine not due until09/08/23and every 1year Satisfied(in the past 1 year) Satisfied Adult Influenza Vaccine on11/29/22.Satisfied by ELISE Tripp Sharon Body Mass Index on12/20/22.Satisfied by YASIR Lawton, Liliana Breast Cancer Screening on05/17/23.Satisfied by JOVANNI Jose Lynnae Hepatitis C Screening on05/17/23.Satisfied by Contributor_system, [id number] Lipid Screening on08/12/23.Satisfied by Contributor_system, [email or web address] Electronic Signature on File Electronically Reviewed/Signed by: Robert Gerardo MD Author Signature Dt/Tm:08/15/2023 11:06 AM Department of Family Medicine [facility] Patient Care team information Care Team Personnel Name: MD Gerardo Juan Position: Physician - Family Med Member Role: Primary Care Provider Address: Address: [address] [place] [id number] Care Team Related Persons Name: SUGAR RUBI Address: home [address] [address] [facility] [place] [id number] Name: SUGAR RUBI Address: home [address] [facility] [place] [id number]"
--- OUTSIDE RECORDS SUMMARY | 2023-12-14 15:53 | External Medical Summary | Continuity of Care Document ---
Author Name Unknown Organization [facility] [id number] Address [address] [place] [id number] Care Team Providers Care Manager Cardiovascular Name Role Phone Robert Gerardo Primary Care Physician [phone] [facility] [id number] Date(s): 12/04/23 - 12/04/23 [facility] [address] [place] [id number] [facility] [address] [place] [phone] Encounter Diagnosis Tinea unguium(Discharge Diagnosis) - 12/04/23 Ingrown right big toenail(Discharge Diagnosis) - 12/04/23 Callus(Discharge Diagnosis) - 12/04/23 Discharge Disposition: Home or Self Care Attending Physician: DAYO Lopez Christina L Referring Physician: MD Gerardo Juan Allergies, Adverse Reactions, Alerts Substance Criticality Severity Reaction Reaction Severity Status pravastatin leg pain and weakness Active simvastatin leg cramp Active Toprol-XL chest pain and sob A ctive hydrochlorothiazide- triamterene hypercalcemia Active Crestor muscle weakness Acti ve Assessment and Plan Extracted from: Title:Orthopaedics Office Visit Note Author:Gina Trimble DPM, Christina L Date:12/04/23 1.Tinea unguium LFTs and GGT's ordered today I do feel oral Lamisil in combination with topical Kerydin will be best treatment if all blood work was is within normal limits will prescribe the oral Lamisil for 3 monthsblood work ordered today. Patient prescribed topical Kerydin may begin today. 2.Ingrown right big toenail Right hallux lateral nail border partial nail avulsion with phenol - Consent obtained and reviewed with the patient, for removal of toenail. Area was cleaned with alcohol, injection of 6 mL of 1% lidocaine plain injection in a ring block. Once anesthesia of the obtained, toe was cleaned with Hibiclens. Right hallux lateral aspect of the toenail was avulsed using nail nipper, curved hemostat and freer elevator; phenol then applied. Tourniquet used for bleeding, post removal of nail, toe had good hemodynamic response noted. Dressings were applied with triple antibiotic and gauze/coban to comfort. Patient was given post op instructions which were reviewed with the patient. - Post op care includes to remove the dressings in the evening, thoroughly wash with warm, soapy water daily, and please refrain from soaking the toe. It is common to have redness and drainage for several days. Please apply an antimicrobial agent and Band-Aid daily over the area. Please f/u in 1 week. Weight bearing and activity restrictions are based on the pain level. Please elevate, limit activity, ice the foot. Nonsteroidal anti-inflammatory medications are adequate for pain management. - Patient instructed to f/u in 10 days for evaluation I, Ofe Lopez DPM, spent a total of 48 minutes on this encounter providing the following fdb-lmyp-ti-face and wyke-ux-sara activities. Activities Include: _5_ preparing to see the patient (for example, review of tests) _7_ obtaining and/or reviewing separately obtained history _6_ physical exam/evaluation _6_ counseling/educating patient/family/caregiver __ discussion/referral to other healthcare professional _5_ documenting care in the medical record _4_ independent interpretation of results _6_ communication of results to patient/family/caregiver _3_ coordination of care _6_ ordering medications and tests Excludes _6 minutes__ time for procedure ___nail avulsion performed 3.Callus Recommended to use moisturizing lotion and pumice stone Immunizations Given and Recorded Vaccine Date Status [...] another provider Start Date: 02/07/10 Status: Ordered Kerydin 5% topical solution Start: 12/04/23 8:54:00 AM EDT, 1 appl, topical, Daily, Disp# 10 mL, Refills: 6, Apply to affected toenails once per day for 6 months Start Date: 12/04/23 Stop Date: 05/13/30 Status: Ordered lisinopril 20 mg oral tablet [...] 1, PRN: as needed for dizziness, Pharmacy: [id number] Start Date: 05/01/19 Status: Ordered multivitamin Start: [...] Home Delivery Start Date: 10/04/23 Status: Ordered Mental Status 12/04/23 Barriers to Learning one year None evide nt Mandatory Health Literacy Documentation Yes Health Literacy Communication Barriers N ever Primary Language Ecuadorean Problem List Condition Confirmation Course Effective Dates Status H ealth Status Informant Allergic rhinitis Confirmed Active ANXIETY Confirmed Active BENIGN ESSENTIAL HYPERTENSION Confirmed 02/07/10 Active Callus Confirmed Active CVA (cerebrovascular accident) 1 Confirmed 04/24/19 Active Colonoscopy 2 Confirmed Active DEPRESSION Confirmed Active Headache Confirmed Active Ingrown right big toenail Confirmed Active Insomnia Confirmed Active Migraine Confirmed Active Vestibular migraine 3, 4 Confirmed Active MIXED HYPERLIPIDEMIA Confirmed 02/07/10 Active Obesity Confirmed Active Tinea unguium Confirmed Active Osteopenia Confirmed Active Statin intolerance Confirmed Active Thyroid nodule 5, 6, 7 Confirmed Active TIA (transient ischemic attack) Confirmed Active Weight disorder Confirmed Active 1Brian 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 Ofe Moeller's inpatient consultation note ([facility] neurology). Patient was started on plavix. 68753: normal 3sees neurology 4HA with dizziness. Should avoid triptan per neurology 17:09 - Hockenberry, BOOM STORAGE, Malini Multinodular myticycstic thyroid essentially unchanged given differences in scan technique comparedto the prior study. : FNA: benign 7Thyroid US 07/26/2014: multinodular thyroid gland. A dominant calcification containing nodule in theleft lower pole 3.2cm as well as a large solid and cystic noduel in the right isthmus measuring 3.0cm. Diagnosis Diagnosis Type Effective Dates Health Status Cl inical Service Informant Tinea unguium Discharge Diagnosis 12/04/23 Non-Specified Ingrown right big toenail Discharge Diagnosis 12/04/23 Non-Specified Callus Discharge Diagnosis 12/04/23 Non-Specified Procedures Procedure Date Related Diagnosis Body [...] singificant stenosis, occlusion or aneurysm within the [place] of [place]. 9COLO to cecum, diverticulosis, repeat [...] abdi Sex Female Sex Representation Female (finding) Ortho Outpt Note * DAYO Lopez, Ofe Rodriguez: PERFORM Event Display: Ortho Outpt Note Authored Date: [id number] Primary Care Provider MD Gerardo Juan Chief Complaint right great toenail ingrown, concerns of left great toe issue History of Present Illness Patient is a very pleasant 73-year-old female last seen by myself in 2021for similar issue of an ingrown toenail Patient has several issues todayshe has a callus present on the plantar aspect of the left footjust like would like some information on how to care for this,she would like her fungal toenails treated as they have been the underlying cause of her ingrown toenailsshe also has an ingrown and painful toenail of the right hallux lateral nail border Past medical history reviewed last family medicine note August of this year. Surgical history reviewed. Medications reviewed includes the clopidogrel Allergiesreviewed Social historyreviewed Mandy history reviewed Review of Systems Patient takes blood thinner medication Physical Exam Problem focused bilateral feet: Dorsalis pedis pulse palpable 2 out of 4,posterior tibial pulse palpable 2-4, capillary fill timeless than 3 seconds, skin turgor good to all digits of both feetpedal hair is present. Gross sensation intact all digits of both feet. Right halluxlateral nail border with incurvation and pain recommend partial nail avulsion with phenol Callus present submetatarsal 1 left foot Toenails of digits 1 through 5 bilateral feet with dystrophy, subungual debris, thickeningconsistent with onychomycosis Assessment/Plan 1.Tinea unguium LFTs and GGT's ordered today I do feel oral Lamisil in combination with topical Kerydin will be best treatment if all blood work was is within normal limits will prescribe the oral Lamisil for 3 monthsblood work ordered today. Patient prescribed topical Kerydin may begin today. 2.Ingrown right big toenail Right hallux lateral nail border partial nail avulsion with phenol - Consent obtained and reviewed with the patient, for removal of toenail. Area was cleaned with alcohol, injection of 6 mL of 1% lidocaine plain injection in a ring block. Once anesthesia of the obtained, toe was cleaned with Hibiclens. Right hallux lateral aspect of the toenail was avulsed usingnail nipper, curved hemostat and freer elevator; phenol then applied. Tourniquet used for bleeding,post removal of nail, toe had good hemodynamic response noted. Dressings were applied with triple antibiotic and gauze/coban to comfort. Patient was given post op instructions which were reviewed with the patient. - Post op care includes to remove the dressings in the evening, thoroughly wash with warm, soapy water daily, and please refrain from soaking the toe. It is common to have redness and drainage for several days. Please apply an antimicrobial agent and Band-Aid daily over the area. Please f/u in 1 week. Weight bearing and activity restrictions are based on the pain level. Please elevate, limit activity, ice the foot. Nonsteroidal anti-inflammatory medications are adequate for pain management. - Patient instructed to f/u in 10 days for evaluation I, Ofe Lopez DPM, spent a total of 48 minutes on this encounter providing the following tyd-ipft-pi-face and ugaj-dx-booz activities. Activities Include: _5_ preparing to see the patient (for example, review of tests) _7_ obtaining and/or reviewing separately obtained history _6_ physical exam/evaluation _6_ counseling/educating patient/family/caregiver __ discussion/referral to other healthcare professional _5_ documenting care in the medical record _4_ independent interpretation of results _6_ communication of results to patient/family/caregiver _3_ coordination of care _6_ ordering medications and tests Excludes _6 minutes__ time for procedure ___nail avulsion performed 3.Callus Recommended to use moisturizing lotion and pumice stone Problem List/Past Medical History Ongoing Allergic rhinitis ANXIETY BENIGN ESSENTIAL HYPERTENSION Callus Colonoscopy CVA (cerebrovascular accident) DEPRESSION Headache Ingrown right big toenail Insomnia Migraine MIXED HYPERLIPIDEMIA Obesity Osteopenia Statin intolerance Thyroid nodule TIA (transient ischemic attack) Tinea unguium Vestibular migraine Weight disorder Resolved Gallstones GERD [...] mg oral tablet), 1 tab, PO, Daily ezetimibe(Zetia 10 mg oral tablet), 10 mg= 1 tab, PO, Daily, 3 refills lisinopril(lisinopril 20 mg oral tablet), 1 tab, PO, bid magnesium oxide(magnesium oxide 400 mg (241.3 mg elemental magnesium) oral tablet) meclizine(meclizine 25 mg oral tablet), 25 mg= 1 tab, PO, tid, PRN, 1 refills multivitamin tavaborole topical(Kerydin 5% topical solution), 1 appl, topical, Daily, 6 refills traZODone(traZODone 50 mg oral tablet), See Instructions, [...] Medicare Annual Wellness Visit due10/12/22and every 1year Adult Influenza Vaccine due09/08/23and every 1year Due Adult COVID-19 Vaccination due12/04/23Unknown Frequency Adult Social Determinants of Health Screening due12/04/23Unknown Frequency Shingles Vaccine due12/04/23One-time only Due In Future Body Mass Index not due until10/04/24and every day Satisfied(in the past 1 year) Satisfied Body Mass Index on12/20/22.Satisfied by YASIR Lawton Jenna Breast Cancer Screening on05/17/23.Satisfied by JOVANNI Jose Lynnae Hepatitis C Screening on05/17/23.Satisfied by Contributor_system, [email or web address] Lipid Screening on08/12/23.Satisfied by Contributor_system, [email or web address] Electronic Signature on File Electronically Reviewed/Signed by: Ofe Lopez DPM Author Signature Dt/Tm:12/04/2023 09:19 AM Division of Sports Medicine CLR Patient Care team information Care Team Personnel Name: MD Gerardo Juan Position: Physician - Family Med Member Role: Primary Care Provider Address: [address] [place] [address], [place] [id number] [place] Care Team Related Persons Name: SUGAR RUBI Name: SUGAR RUBI"
--- OUTSIDE RECORDS SUMMARY | 2023-12-14 15:53 | External Medical Summary | Continuity of Care Document ---
Author Name Unknown Organization [address] Address [address] [place], [place] [id number] Care Team Providers Care Multi Operation Machine Operator Name Role Phone Robert Gerardo Primary Care Physician [phone] [id number] Date(s): 10/04/23 - 10/04/[address], [address] [place] [address] [phone] Discharge Disposition: Home or Self Care Attending Physician: MARTIN Santiago Sarah A Referring Physician: MARTIN Santiago Sarah A Allergies, Adverse Reactions, Alerts Substance Criticality Severity Reaction Reaction Severity Status pravastatin leg pain and weakness Active simvastatin leg cramp Active Toprol-XL chest pain and sob A ctive hydrochlorothiazide- triamterene hypercalcemia Active Crestor muscle weakness Acti ve Immunizations Given [...] Daily, Disp# 90 tab, Refills: 3, Pharmacy: [facility] Start Date: 05/24/23 Status: Ordered [...] PRN: as needed for dizziness, Pharmacy: [id number] Start Date: 05/01/19 Status: Ordered multivitamin Start: [...] to Dr. Ofe Moeller's inpatient consultation note ([facility] neurology). Patient was started on plavix. 38578: normal 3sees neurology 4HA with dizziness. Should avoid triptan per neurology 17:09 - Richard, BATCH STILL OPERATOR, Malini Multinodular myticycstic thyroid essentially unchanged given [...] - 9/9% Hip - 1.5% Population - [facility] () Based on DualFemur (Left) Neck BMD 5There is no hemorrhage, mass effect, or evidence of acute territorial ischemia by CT criteria. 6there is no mammographic evidence of malignancy . 7No evidence of hemodynamically signifiant carotid or vertebral artery stenosis. No evidence of dissection. 81. No acute intracranial abnormality 2. NO singificant stenosis, occlusion or aneurysm within the [place] of [place]. 9COLO to cecum, diverticulosis, repeat [...] Med Member Role: Primary Care Provider Address: [address] [place] [id number] Care Team Related Persons Name: SUGAR RUBI Name: SUGAR RUBI
--- OUTSIDE RECORDS SUMMARY | 2023-12-14 15:53 | External Medical Summary | Continuity of Care Document ---
Author Name Unknown Organization [facility] [address] [facility] Address [address] [place] [id number] Care Team Providers Care Retail Custodial Associate Name Role Phone Robert Gerardo Primary Care Physician [phone] [facility] [id number] Date(s): 10/04/23 - 10/04/23 [facility] [address], [address] [place] [address] [phone] Encounter Diagnosis Irregular heart rhythm(Discharge Diagnosis) - 10/04/23 HLD (hyperlipidemia)(Discharge Diagnosis) - 10/04/23 PVC (premature ventricular contraction)(Discharge Diagnosis) - 10/04/23 HTN (hypertension)(Discharge Diagnosis) - 10/04/23 Migraine(Discharge Diagnosis) - 10/04/23 Discharge Disposition: Home or Self Care Attending Physician: MARTIN Santiago Sarah A Allergies, Adverse Reactions, Alerts Substance Criticality Severity Reaction Reaction Severity Status pravastatin leg pain and weakness Active simvastatin leg cramp Active Toprol-XL chest pain and sob A ctive hydrochlorothiazide- triamterene hypercalcemia Active Crestor muscle weakness Acti ve Assessment and Plan Extracted from: Title:Cardiology Office Visit Note Author:MARTIN Ma rd, Sarah A Date:10/04/23 HLD (hyperlipidemia) HTN (hypertension) Irregular heart rhythm PVC (premature ventricular contraction) Ms. Rubi is willing to try Zetiawhich can lower her LDL by up to 20%. Her LDL should be below 70 given that she has a history of stroke, however on review of her 2019 admission it sounds like she was actually having a complex migraine rather than stroke. There was no stroke found on her MRI. If were not able to achieve this with ZetiaI would recommend we move to a PCSK9 inhibitor. She would be comfortablegiving herself vicente is agreeable to trying Zetia and ifit does not work out moving ontoRepatha or Praluent. She will havea lipid panel done in 2 or 3 months. She will let me know if she is having muscle pain or weaknesswith the new medication. Her blood pressure is controlled. She is havingsensation of palpitations fairly frequently. While she washooked up to the EKGshe did have a fair amount of PVCs, about every fourth beatas well as a PAC. She is otherwise in a sinus bradycardia. She will wear a Holter monitorfor 24 hours to evaluatefrequency of her PVCs. She has been on clopidogrel since her complex migraine episode in 2019. She will return to the clinic in 3 months Immunizations Given and Recorded Vaccine Date Status [...] 1, PRN: as needed for dizziness, Pharmacy: [id number] Start Date: 05/01/19 Status: Ordered multivitamin Start: [...] Start Date: 10/04/23 Status: Ordered Mental Status 10/04/23 Barriers to Learning one year None evide nt Mandatory Health Literacy Documentation Yes Health Literacy Communication Barriers N ever Primary Language Persian Problem List Condition Confirmation Course Effective Dates [...] to Dr. Ofe Moeller's inpatient consultation note ([facility] neurology). Patient was started on plavix. 02559: normal 3sees neurology 4HA with dizziness. Should avoid triptan per neurology 17:09 - Richard, DATA CAPTURE SPECIALIST, Malini Multinodular myticycstic thyroid essentially unchanged given differences in scan technique comparedto the prior study. : FNA: benign 7Thyroid US 07/26/2014: multinodular thyroid gland. A dominant calcification containing nodule in theleft lower pole 3.2cm as well as a large solid and cystic noduel in the right isthmus measuring 3.0cm. Diagnosis Diagnosis Type Effective Dates Health Status Clinical Service Informant Irregular heart rhythm Discharge Diagnosis 10/04/23 Non-Specified HLD (hyperlipidemia) Discharge Diagnosis 10/04/23 Non-Specified Migraine Discharge Diagnosis 10/04/23 Non-Specified HTN (hypertension) Discharge Diagnosis 10/04/23 Non-Specified PVC (premature ventricular contraction) Discharge Diagnosis 10/04/23 Non-Specified Procedures Procedure Date Related Diagnosis Body [...] singificant stenosis, occlusion or aneurysm within the [place] of [place]. 9COLO to cecum, diverticulosis, repeat [...] to oldest [Reference Range]: 1 Patient Weight 85.5 kg (10/04/23 9:08 AM) Heart Rate 60 bpm (10/04/23 9:08 AM) Blood Pressure 134/82mmHg (10/04/23 9:08 AM) Cuff Pulse Pressure 52 mmHg (10/04/23 9:08 AM) BP Location # 1 Left Arm (10/04/23 9:08 AM) Social History Social History Type Response Smoking Status Never smoked cigaret abdi Sex Female Sex Representation Female (finding) Cardiology * Contributor_system, [email or web address]: VERIFY, PERFORM Event Display: EKG Authored Date: Please click on link to see image. Cardiology Outpatient Note * MARTIN Santiago Sarah A: PERFORM, MODIFY Event Display: Cardiology Outpt Note Authored Date: [id number] Primary Care Provider MD Gerardo Juan History of Present Illness Ms. Tony presents for evaluation of hyperlipidemia intolerant to statins, history of CVA in 2019 and hypertension. She walks 2 miles five days a week. No sob or chest pain. She does have frequent palpitations. She gets significant weakness when she is on statins. This has resolved coming off of them. 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 Respiratory: Lungs are clear to auscultation, Respirations are non-labored. Cardiovascular: Normal rate, Regular rhythm, No murmur, lower extremity edema left greater than right, no carotid bruits to auscultation bilaterally. Integumentary: Warm, Dry, [place] Neurologic: Alert, Oriented. Cognition and Speech: Speech clear and coherent. Psychiatric: Cooperative, Appropriate mood & affect. Assessment/Plan HLD (hyperlipidemia) HTN (hypertension) Irregular heart rhythm PVC (premature ventricular contraction) Ms. Rubi is willing to try Zetiawhich can lower her LDL by up to 20%. Her LDL should be below 70 given that she has a history of stroke, however on review of her 2019 admission it sounds like she was actually having a complex migraine rather than stroke. There was no stroke found on her MRI. If were not able to achieve this with ZetiaI would recommend we move to a PCSK9 inhibitor. She would be comfortablegiving herself vicente is agreeable to trying Zetia and ifit does notwork out moving ontoRepatha or Praluent. She will havea lipid panel done in 2 or 3 months. She will let me know if she is having muscle pain or weaknesswith the new medication. Her blood pressure is controlled. She is havingsensation of palpitations fairly frequently. While she washooked up to the EKGshe did have a fair amount of PVCs, about every fourth beatas well as a PAC. She is otherwise jovita sinus bradycardia. She will wear a Holter monitorfor 24 hours to evaluatefrequency of her PVCs. She has been on clopidogrel since her complex migraine episode in 2019. She will return to the clinic in 3 months Problem List/Past Medical History Ongoing Allergic rhinitis [...] Skin cancer: Mother. Health Status Family Member(s) Electronic Signature on File CC: Robert Gerardo MD [address] [place] [id number] Electronically Reviewed/Signed by: MARTIN Chakraborty Author Signature Dt/Tm:10/04/2023 09:54 AM [facility] [place] [facility] Patient Care team information Care Team Personnel Name: MD Gerardo Juan Position: Physician - Family Med Member Role: Primary Care Provider Address: [address] [place] [id number] [place] Care Team Related Persons Name: SUGAR RUBI Name: SUGAR RUBI"
--- NOTE | 2023-12-14 15:55 | Emergency Department Note ---
Impression & Plan Dislocation of left ankle joint, Closed trimalleolar fracture of ankle ED Provider Note NAME: AMADA RUBI AGE: 73 SEX: Female INFORMANT: Patient and EMS ED PROVIDER(S): Placido Corona MD CHIEF COMPLAINT: Left ankle pain PLAN: Disposition: Admitted Outpatient prescription management: none Referral: None MEDICAL DECISION MAKING: Patient presented because of a isolated left ankle injury. There was obvious deformity but no open wounds. Patient did have some tingling present on examination. Remainder of her primary and secondary surveys did not reveal any significant trauma. Patient had blood work done. X-ray imaging, ice, and IV Dilaudid and Zofran administered. X-ray ridging revealed the presence of a trimalleolar fracture. This is closed. Patient does have some tingling. Reduction is necessary. Patient received second dose of IV Dilaudid and reduction was attempted. Fracture dislocation very unstable although reduced did slip back out of place. Consult was placed with orthopedics, Dr. Pollock. He evaluated the patient in the ER. We did remove the original splint and reduction was performed again by him after a hematoma block to further assist in the process. Reduction was achieved however he noted this was very unstable and that the patient would require an external fixator. He has for the patient to be admitted and he will be taken to the operating room tomorrow. Consultation was made with Dr. Comer the [facility] hospitalist service. Patient was evaluated in the ER admitted for further management. Care/management discussed with: manager channel Level of care consideration(s): After review of the information above and other included data, I feel the patient regards escalation of care to admission. Triage Nursing notes: reviewed and agree them. Vital Signs: reviewed and remarkable for no significant abnormalities Additional History obtained from: EMS. Uneventful transport. Chronic Medical/Social Conditions affecting care: Hypertension Prior/ Outside/ External records reviewed: none Differential Diagnosis: Fracture, subluxation, dislocation, contusion, ligamentous injury, neurovascular, compartment syndrome, rhabdomyolysis, as well as other pathologies. Diagnostics, independently interpreted by me: ECG: none Cardiac Monitoring: Cardiac monitoring ordered by me: The patient was placed on continuous cardiac monitoring and observed. It revealed a normal sinus rhythm at 82 beats per minute without ectopy or evidence of dysrhythmia. Medical decision rules: none Imaging studies: X-ray imaging of the left ankle reveals a trimalleolar fracture dislocation. X-ray imaging postreduction attempt #1 reveals persistent posterior dislocation as well as a lateral dislocation. X-ray imaging after reduction attempt #2 reveals successful reduction with widening of the mortise and displacement of the distal fibula fracture HPI: 73 year old Female arrives for evaluation of left ankle pain . This started just prior to arrival and is from slipping and falling on gravel getting out of her car. The patient also notes the following associated symptoms, left ankle swelling and deformity. The patient has been given Tylenol by EMS for relieving factors. Current pain is rated as 10/10. Patient denies any other injury. No prior orthopedic history. No open wounds. Pt denies LOC, headache, visual changes, neck pain, chest pain, breathing difficulties, nausea, vomiting, abdominal pain, back pain, extremity pain, numbness, weakness, open wounds, active bleeding, or other complaints. PAST MEDICAL HISTORY: Hypertension, see below PAST SURGICAL HISTORY: See Below, SOCIAL HISTORY: See Below, non-smoker HOME MEDICATIONS: See Below ALLERGIES: See Below VITALS: See Below PHYSICAL EXAMINATION: GENERAL: Awake, alert, uncomfortable-appearing, in no distress HENT: Normocephalic, atraumatic. Oropharynx unremarkable. EYES: Normal conjunctiva. Sclera non-icteric. NECK: Inspection normal. Non-tender. Supple. No nuchal rigidity. FROM. No masses. RESPIRATORY: Clear to auscultation. No wheezes. No rales. Normal respiratory effort. CARDIAC: Normal rate. Normal rhythm. No murmurs. No rubs. Extremities warm and well perfused. Pulses equal. No JVD. GI: Soft, non-distended. No tenderness to palpation. No rebound or guarding. No masses. RECTAL: Deferred. MUSCULOSKELETAL: Atraumatic. Chest examination reveals no tenderness. The back is symmetrical on inspection without obvious abnormality. There is no CVA tenderness to palpation. No joint edema. LOWER EXTREMITIES: Calves are equal size bilaterally and non-tender. There is bruising and edema noted to the left ankle with obvious lateral deviation and concerning for dislocation. NEURO: Normal sensorium. No sensory or motor deficits noted. SKIN: No rash or jaundice noted. PROCEDURES: FRACTURE/DISLOCATION REDUCTION: The patient's fracture was reduced in the standard fashion by me using traction and gentle force. Appropriate anatomic alignment achieved. The patient tolerated the procedure well. Good cap refill and neurovascular status afterwards. Splint applied in the standard fashion however the fracture fragments slipped and x-ray imaging confirmed malalignment and posterior dislocation present again. SPLINTING: Indication: Fracture dislocation Verbal consent obtained. Risks and benefits were explained with the usual customary discussion. The injured extremity was identified. The patient was prepped and measured for the placement of a short leg posterior with stirrup ortho-glass splint. Splint applied in the standard fashion over a layer of webril and secured using an elastic bandage. Set into a position of function. Normal neurovascular status after placement verified by me. No complications. CRITICAL CARE: none OBSERVATION NOTE: none Past Med/Surg History Problem List (Updated 12/14/23 @ 17:59 by Placido Corona MD) Closed trimalleolar fracture of ankle (Acute) Dislocation of left ankle joint (Acute) Migraine with aura Chronic migraine without aura with status migrainosus, not intractable Word finding difficulty Migraine Hyperlipidemia (Chronic) Sinusitis TIA (transient ischemic attack) (Acute) Expressive aphasia (Acute) Depression Hypertension Chest pain Chronic cholecystitis Medical History Depression Hyperlipidemia Hypertension Migraine Surgical History History of cholecystectomy History of hernia repair History of hysterectomy Family History Mother Diabetes Hypertension Cancer Social History Smoking Status: Never smoker Hx Alcohol Use: No Hx Substance Use: No Preferred Language: Kittitian Communication Ability: Effective Small Equipment Operator Required: No Beliefs That Will Affect Care: None Current Living Situation: Spouse Current Living Situation Comment: Lives at home with Feels Safe at Home: Yes Assistive Devices: None Allergies Allergies Allergy/AdvReac Type Severity Reaction Status Date / Time bee venom protein (honey bee) Allergy Mild Verified 06/07/20 10:16 simvastatin Allergy Unknown Verified 06/07/20 10:16 rosuvastatin AdvReac Unknown MUSCLE Verified 06/07/20 10:16 WEAKNESS,CRAMPS Home Meds Home Medications Medication Instructions Recorded Confirmed cholecalciferol (vitamin D3) 50 2,000 unit PO QAM 05/01/19 06/07/20 mcg (2,000 unit) chewable tablet coenzyme Q10 200 mg capsule (Co 200 mg PO QAM 05/01/19 06/07/20 Q-10) escitalopram oxalate 20 mg tablet 20 mg PO DAILY 05/01/19 06/07/20 fluticasone propionate 50 1 spray intranasal QAM PRN Allergy 05/01/19 06/07/20 mcg/actuation nasal Symptoms spray,suspension (Flonase Allergy Relief) glucosamine 375 lj-snlysymnx-ntg 1 tab PO QAM 05/01/19 06/07/20 no1 500 mg-C 15 mg-jamar 0.5 mg tablet (Isdrfvzmwzm-Vusvrgojibt-JWC Complex) lisinopril 20 mg tablet 20 mg PO BID 05/01/19 06/07/20 loratadine 10 mg tablet 10 mg PO QAM PRN Allergy Symptoms 05/01/19 06/07/20 meclizine 25 mg tablet 25 mg PO TID PRN Dizziness 05/01/19 06/07/20 multivitamin 1 tab PO QAM 05/01/19 06/07/20 rosuvastatin 5 mg tablet 5 mg PO Q OTHER DAY 05/01/19 06/07/20 trazodone 50 mg tablet 50 mg PO HS 05/01/19 06/07/20 verapamil 240 mg tablet,extended 240 mg PO QAM 05/01/19 06/07/20 release Previous Rx's Medication Instructions Recorded magnesium oxide 400 mg (241.3 mg 400 mg PO DAILY #30 tabs 05/02/19 magnesium) tablet clopidogrel 75 mg tablet 75 mg PO QAM 90 days #90 tabs 06/07/20 Results & Data (ED) Vital Signs Vital Signs - 24 hr 12/14/23 15:49 12/14/23 17:00 12/14/23 17:03 Temperature 36.7 C Temperature Source Oral Pulse Rate 64 76 77 Pulse Rate from SpO2 Sensor 74 76 Respiratory Rate 20 22 22 Respiratory Effort / Characteristics Non-Labored Spontaneous Respiratory Depth Normal Respiratory Pattern Regular Blood Pressure 182/100 H 163/89 H Blood Pressure Mean 127 116 Pulse Oximetry 98 91 Oxygen Delivery Method Room Air Sepsis Recent Fever Within 48 Hours No Sepsis New/Unexplained Change in Mental Status N/A Sepsis Action Taken by Nursing No Action Required 12/14/23 17:29 Temperature Temperature Source Pulse Rate 74 Pulse Rate from SpO2 Sensor Respiratory Rate Respiratory Effort / Characteristics Respiratory Depth Respiratory Pattern Blood Pressure Blood Pressure Mean Pulse Oximetry Oxygen Delivery Method Sepsis Recent Fever Within 48 Hours Sepsis New/Unexplained Change in Mental Status Sepsis Action Taken by Nursing Laboratory Data 12/14/23 15:54 12/14/23 15:54 Lab Results 12/14/23 Range/Units 15:54 WBC 7.84 (4.8-10.8) K/ul RBC 4.27 (4.20-5.40) M/uL Hgb 12.8 (12.0-16.0) g/dl Hct 39.6 (37.0-47.0) % MCV 92.7 (80.0-100.0) fL MCH 30.0 (25.0-34.0) pg MCHC 32.3 (32.0-36.0) g/dL RDW Std Deviation 43.2 (36.4-46.3) fL RDW Coeff of Jaskaran 12.6 (11.5-14.5) % Plt Count 193 (130-400) K/uL MPV 10.3 (9.4-12.4) fL Immature Gran % (Auto) 0.4 % Neut % (Auto) 69.3 % Lymph % (Auto) 18.1 % [place] % (Auto) 7.4 % Eos % (Auto) 3.8 % Baso % (Auto) 1.0 % Neut # (Auto) 5.43 (1.40-6.50) K/uL Lymph # (Auto) 1.42 (1.20-3.40) K/uL [place] # (Auto) 0.58 (0.11-0.59) K/uL Eos # (Auto) 0.30 (0.00-0.50) K/uL Baso # (Auto) 0.08 (0.00-0.20) K/uL Immature Gran # (Auto) 0.03 (0.01-0.20) K/uL Sodium 138 (136-145) mmol/L Potassium 4.4 (3.5-5.1) mmol/L Chloride 104 (98-107) mmol/L Carbon Dioxide 29 (21-32) mmol/L Anion Gap 5 (3-11) BUN 25 H (6-23) mg/dl Creatinine 0.78 (0.6-1.2) mg/dl Est Cr Clr Drug Dosing 68.5 ml/min eGFR 79.16 BUN/Creatinine Ratio 32.1 H (10-20) Glucose 97 (70-99(Fasting)) mg/dl Calcium 9.8 (8.6-10.3) mg/dl Total Bilirubin 0.3 (0.2-1.0) mg/dl AST 20 (13-39) U/L ALT 15 (7-52) U/L Alkaline Phosphatase 43 (34-104) U/L Total Protein 6.4 (6.0-8.3) gm/dl Albumin 4.2 (3.4-5.0) gm/dl Globulin 2.2 L (2.5-4.0) gm/dl Albumin/Globulin Ratio 1.9 (0.9-2) Administered Medications Hydromorphone HCl (Hydromorphone Inj 0.5 Mg/0.5 Ml Syr) 0.5 mg IV Q20M PRN PRN Reason: Severe Pain (Rating 7,8,9,10) Stop: 12/28/23 15:45 Last Admin: 12/14/23 16:38 Dose: 0.5 mg Documented By: Admin: 12/14/23 15:58 Dose: 0.5 mg Documented By: MK Discontinued Medications Lidocaine HCl (Lidocaine 1% Local 20 Ml Vial) Confirm Administered Dose 10 ml .ROUTE .STK-MED ONE Stop: 12/14/23 16:58 Last Admin: 12/14/23 17:39 Dose: 10 ml Documented By: TERESA Ondansetron HCl (Ondansetron Inj 2 Mg/Ml 2 Ml Vial) 4 mg IV NOW STA Stop: 12/14/23 15:48 Last Admin: 12/14/23 15:58 Dose: 4 mg Documented By: [facility] Imaging Data Radiologist's Impression: Ankle X-Ray 12/14/23 15:46 XR ankle LT min 3V routine CLINICAL HISTORY: fall, deformity COMPARISON: Left foot radiographs February 22, 2015. FINDINGS: Acute displaced distal left fibular and medial malleolar fractures are noted. Medial malleolar fracture is displaced 1.8 cm. The fibular fracture is displaced 1.9 cm. There may also be a fracture of the posterior distal left tibia. The tibiotalar joint is dislocated. Ankle soft tissue swelling is noted. IMPRESSION: Left ankle trimalleolar fracture/dislocation, as described above. ACT 112: Negative or not required by law. Electronically signed by: Stone Dhaliwal M.D. 12/14/2023 4:16 PM Ankle X-Ray 12/14/23 16:48 XR ankle LT 2V CLINICAL HISTORY: post splint COMPARISON: Left ankle radiographs performed earlier today. FINDINGS: Status post splinting. Displaced distal left tibial and fibular fractures are again noted with tibiotalar dislocation. Medial malleolar fracture is displaced 1.8 cm. Fibular fracture is displaced approximately 2.2 cm. There is soft tissue swelling. Fine detail is diminished given overlying cast. IMPRESSION: Persistent left ankle trimalleolar fracture/dislocation, as described above. ACT 112: Negative or not required by law. Electronically signed by: Stone Dhaliwal M.D. 12/14/2023 5:03 PM Ankle X-Ray 12/14/23 17:03 XR ankle LT 2V CLINICAL HISTORY: post splint placement x2 COMPARISON: Left ankle radiographs December 14, 2023 at 4:43 PM. FINDINGS: Status post reduction. Alignment of the distal left tibial and fibular fractures has significantly improved post reduction. Tibiotalar alignment has also markedly improved. Fine detail is diminished given overlying cast. IMPRESSION: Significant improvement in alignment of the left ankle post reduction. ACT 112: Negative or not required by law. Electronically signed by: Stone Dhaliwal M.D. 12/14/2023 5:30 PM Discharge Plan Visit Data Chief Complaint: Ankle Pain Stated Complaint: ANKLE DEFORMITY ED Provider: Placido Corona Discharge Problem: Dislocation of left ankle joint, Closed trimalleolar fracture of ankle Forms Stand Alone Forms: My [facility] Prescriptions Prescriptions: No Action clopidogrel 75 mg tablet 75 mg PO QAM 90 Days Qty: 90 3RF multivitamin Tablet 1 tab PO QAM trazodone 50 mg Tablet 50 mg PO HS lisinopril 20 mg tablet 20 mg PO BID meclizine 25 mg Tablet 25 mg PO TID PRN (Reason: Dizziness) verapamil 240 mg Tablet Extended Release 240 mg PO QAM fluticasone propionate [Flonase Allergy Relief] 50 mcg/actuation Hines,Suspension 1 spray INTRANASAL QAM PRN (Reason: Allergy Symptoms) loratadine 10 mg Tablet 10 mg PO QAM PRN (Reason: Allergy Symptoms) escitalopram oxalate 20 mg Tablet 20 mg PO DAILY rosuvastatin 5 mg Tablet 5 mg PO Q OTHER DAY coenzyme Q10 [Co Q-10] 200 mg Capsule 200 mg PO QAM Nijxpkpdaci-Sbxvs-QNR Complex 528-917-97-0.5 mg Tablet 1 tab PO QAM cholecalciferol (vitamin D3) 2,000 unit Tablet,Chewable 2,000 unit PO QAM magnesium oxide 400 mg (241.3 mg magnesium) tablet 400 mg PO DAILY Qty: 30 0RF Referrals Referrals: Robert Gerardo MD [Primary Care Provider] -
[2023-12-14] MEDS: ONDANSETRON INJ 2 MG/ML 2 ML VIAL IV STA (15:58)
[2023-12-14] MEDS: HYDROmorphone INJ 0.5 MG/0.5 ML SYR IV PRN (15:58)
--- NOTE | 2023-12-14 16:18 | XRay Report ---
XR ankle LT min 3V routine CLINICAL HISTORY: fall, deformity COMPARISON: Left foot radiographs February 22, 2015. FINDINGS: Acute displaced distal left fibular and medial malleolar fractures are noted. Medial malle olar fracture is displaced 1.8 cm. The fibular fracture is displaced 1.9 cm. There may also be a frac ture of the posterior distal left tibia. The tibiotalar joint is dislocated. Ankle soft tissue swelli ng is noted. IMPRESSION: Left ankle trimalleolar fracture/dislocation, as described above. ACT 112: Negative or not required by law. Electronically signed by: Stone Dhaliwal M.D. 12/14/2023 4:16 PM
[2023-12-14 16:30] LABS: Basophils # (auto) 0.08 K/uL (0.00-0.20); Eosinophils % (auto) 3.8 %; Hematocrit (blood only) 39.6 % (37.0-47.0); Hemoglobin 12.8 g/dl (12.0-16.0); Immature Granulocytes # (auto) 0.03 K/uL (0.01-0.20); Immature Granulocytes % (auto) 0.4 %; Lymphocytes # (auto) 1.42 K/uL (1.20-3.40); Lymphocytes % (auto) 18.1 %; Mean Corpuscular Hgb Conc 32.3 g/dL (32.0-36.0); Mean Corpuscular Volume 92.7 fL (80.0-100.0); Mean Platelet Volume 10.3 fL (9.4-12.4); Monocytes # (auto) 0.58 K/uL (0.11-0.59); Monocytes % (auto) 7.4 %; Neutrophils # (auto) 5.43 K/uL (1.40-6.50); Neutrophils % (auto) 69.3 %; Platelet Count 193 K/uL (130-400); RDW Coefficient of Variation 12.6 % (11.5-14.5); RDW Standard Deviation 43.2 fL (36.4-46.3); Red Blood Count 4.27 M/uL (4.20-5.40); White Blood Count 7.84 K/ul (4.8-10.8)
[2023-12-14 16:42] LABS: Albumin Globulin Ratio 1.9 (0.9-2); Albumin Level 4.2 gm/dl (3.4-5.0); BUN Creatinine Ratio 32.1 (10-20); Bilirubin,Total 0.3 mg/dl (0.2-1.0); Calcium 9.8 mg/dl (8.6-10.3); Creatinine Clr Calc Pharmacy 68.5 ml/min; Globulin 2.2 gm/dl (2.5-4.0); Potassium 4.4 mmol/L (3.5-5.1); Total Protein 6.4 gm/dl (6.0-8.3)
--- NOTE | 2023-12-14 17:05 | XRay Report ---
XR ankle LT 2V CLINICAL HISTORY: post splint COMPARISON: Left ankle radiographs performed earlier today. FINDINGS: Status post splinting. Displaced distal left tibial and fibular fractures are again noted with tibiotalar dislocation. Medial malleolar fracture is displaced 1.8 cm. Fibular fracture is displ aced approximately 2.2 cm. There is soft tissue swelling. Fine detail is diminished given overlying c ast. IMPRESSION: Persistent left ankle trimalleolar fracture/dislocation, as described above. ACT 112: Negative or not required by law. Electronically signed by: Stone Dhaliwal M.D. 12/14/2023 5:03 PM
--- NOTE | 2023-12-14 17:32 | XRay Report ---
XR ankle LT 2V CLINICAL HISTORY: post splint placement x2 COMPARISON: Left ankle radiographs December 14, 2023 at 4:43 PM. FINDINGS: Status post reduction. Alignment of the distal left tibial and fibular fractures has signi ficantly improved post reduction. Tibiotalar alignment has also markedly improved. Fine detail is dim inished given overlying cast. IMPRESSION: Significant improvement in alignment of the left ankle post reduction. ACT 112: Negative or not required by law. Electronically signed by: Stone Dhaliwal M.D. 12/14/2023 5:30 PM
[2023-12-14] MEDS: LIDOCAINE 1% LOCAL 20 ML VIAL ONE (17:39)
--- NOTE | 2023-12-14 18:02 | History & Physical Report ---
Date of Service December 14, 2023 Assessment & Plan (1) Closed trimalleolar fracture of ankle: Plan: Revised cardiac risk index 1, 6.0% 30 days risk of , MA or cardiac arrest She is medically optimized for surgery at this time. Pre-operative EKG reviewed, I see no reason for pre-op CXR Consult orthopedics, NPO after midnight, IV fluids starting in AM Hold clopidogrel in AM (2) Hypertension: Plan: Hold lisinopril pre-operatively, verapamil should still be given and not held pre-operatively (3) Depression: Plan: Continue Lexapro, trazodone (4) Hyperlipidemia: Plan: Continue Zetia Plan VTE Prophyalxis - deferred until post operatively Diet - regular, NPO at midnight Disposition - admit to med/surg Admission and Anticipated Discharge Date Admission Date: December 14, 2023 History of Present Illness Chief Complaint: Left ankle pain Primary Care Provider: Robert Gerardo MD Nelli Parker is a 73-year-old female who presents to the ER after a trip and subsequent left ankle pain. No chest pain, shortness of breath or dizziness prior to falling. She reports current severity of ankle pain 2/10. No other injuries from her fall. No history of heart attacks. Possible prior stroke on MRI in 2019 mentioned by neurologist although not on Brain MRI a that time. Otherwise at baseline. No chest pains or shortness of breath on exertion. She has a history of migraines once a month but are relived with acetaminophen alone. Allergies Allergy/AdvReac Type Severity Reaction Status Date / Time bee venom protein (honey bee) Allergy Mild Verified 12/14/23 18:40 metoprolol Allergy Unknown Unknown Unverified 12/14/23 18:40 simvastatin Allergy Unknown Verified 12/14/23 18:40 Mjqgncz-FFI-RdJ Reductase AdvReac Severe Muscle Unverified 12/14/23 18:40 Inhibitor weakness, cramps rosuvastatin AdvReac Unknown MUSCLE Verified 12/14/23 18:40 WEAKNESS,CRAMPS Home Medications Medication Instructions Recorded Confirmed Type cholecalciferol (vitamin D3) 50 2,000 unit PO QAM 05/01/19 12/14/23 History mcg (2,000 unit) chewable tablet coenzyme Q10 200 mg capsule (Co 200 mg PO QAM 05/01/19 12/14/23 History Q-10) escitalopram oxalate 20 mg tablet 20 mg PO DAILY 05/01/19 12/14/23 History fluticasone propionate 50 1 spray intranasal QAM PRN Allergy 05/01/19 12/14/23 History mcg/actuation nasal Symptoms spray,suspension (Flonase Allergy Relief) glucosamine 375 qv-banavelrc-qhr 1 tab PO QAM 05/01/19 12/14/23 History no1 500 mg-C 15 mg-jamar 0.5 mg tablet (Hioesqqoxjd-Ykvtjzwreno-IXP Complex) lisinopril 20 mg tablet 20 mg PO BID 05/01/19 12/14/23 History loratadine 10 mg tablet 10 mg PO QAM PRN Allergy Symptoms 05/01/19 12/14/23 History meclizine 25 mg tablet 25 mg PO TID PRN Dizziness 05/01/19 12/14/23 History multivitamin 1 tab PO QAM 05/01/19 12/14/23 History trazodone 50 mg tablet 50 mg PO HS 05/01/19 12/14/23 History verapamil 240 mg tablet,extended 240 mg PO QAM 05/01/19 12/14/23 History release magnesium oxide 400 mg (241.3 mg 400 mg PO DAILY #30 tabs 05/02/19 12/14/23 Rx magnesium) tablet clopidogrel 75 mg tablet 75 mg PO QAM 90 days #90 tabs 06/07/20 12/14/23 Rx ezetimibe 10 mg tablet 10 mg PO HS 12/14/23 12/14/23 History fluoride (sodium) 1.1 % dental 1 applic PO HS 12/14/23 12/14/23 History cream (Denta 5000 Plus) tavaborole 5 % topical solution 1 applic topical DAILY 12/14/23 12/14/23 History with applicator Past Med/Surg History Problem List (Updated 12/14/23 @ 19:20 by Merlin Comer MD) Closed trimalleolar fracture of ankle (Acute) Dislocation of left ankle joint (Acute) Medical History (Updated 12/14/23 @ 19:20 by Merlin Comer MD) Migraine with aura Chronic migraine without aura with status migrainosus, not intractable Word finding difficulty Migraine Sinusitis Expressive aphasia TIA (transient ischemic attack) Depression Chronic cholecystitis Chest pain Hyperlipidemia Hypertension Surgical History History of hernia repair History of hysterectomy History of cholecystectomy Family History Mother Diabetes Hypertension Cancer Social History Smoking Status: Never smoker Second Hand Exposure: No; Do You Dip or Chew Tobacco: No; Tobacco Cessation Education Requested by Patient: No Hx Alcohol Use: No Hx Substance Use: No Preferred Language: Belizean Communication Ability: Effective Metal Sorter Required: No Beliefs That Will Affect Care: None Current Living Situation: Spouse Current Living Situation Comment: Lives at home with Feels Safe at Home: Yes Safety Concerns: Feels Safe At This Time Assistive Devices: None Review of Systems Review of Systems: All systems reviewed & are unremarkable except as noted in HPI & below Physical Exam Constitutional: WD/WN, vitals as above ENMT: external ear and nose normal, oropharynx normal Respiratory: normal respiratory effort, lungs clear to auscultation Cardiovascular: RRR, no murmur, no edema Gastrointestinal (Abdomen): normal bowel sounds, soft, nontender, no hepatosplenomegaly Musculoskeletal: Left ankle wrapped and not removed, sensation intact in toes and able to dorsi/plantarflex 1st toe Neurologic: awake; not confused Psychiatric: A+Ox3, euthymic affect Results & Data Results & Data Vital Signs (Past 12 Hours) Vital Signs Temp Pulse Resp BP Pulse Ox O2 Del Method 12/14/23 17:29 74 12/14/23 17:03 77 22 91 12/14/23 17:00 76 22 163/89 H 12/14/23 15:49 36.7 C 64 20 182/100 H 98 Room Air Laboratory Results Abnormal lab results 12/14/23 Range/Units 15:54 BUN 25 H (6-23) mg/dl BUN/Creatinine Ratio 32.1 H (10-20) Globulin 2.2 L (2.5-4.0) gm/dl Diagnostic Findings XR ankle LT min 3V routine CLINICAL HISTORY: fall, deformity COMPARISON: Left foot radiographs February 22, 2015. FINDINGS: Acute displaced distal left fibular and medial malleolar fractures are noted. Medial malleolar fracture is displaced 1.8 cm. The fibular fracture is displaced 1.9 cm. There may also be a fracture of the posterior distal left tibia. The tibiotalar joint is dislocated. Ankle soft tissue swelling is noted. IMPRESSION: Left ankle trimalleolar fracture/dislocation, as described above. XR ankle LT 2V CLINICAL HISTORY: post splint COMPARISON: Left ankle radiographs performed earlier today. FINDINGS: Status post splinting. Displaced distal left tibial and fibular fractures are again noted with tibiotalar dislocation. Medial malleolar fracture is displaced 1.8 cm. Fibular fracture is displaced approximately 2.2 cm. There is soft tissue swelling. Fine detail is diminished given overlying cast. IMPRESSION: Persistent left ankle trimalleolar fracture/dislocation, as described above. XR ankle LT 2V CLINICAL HISTORY: post splint placement x2 COMPARISON: Left ankle radiographs December 14, 2023 at 4:43 PM. FINDINGS: Status post reduction. Alignment of the distal left tibial and fibular fractures has significantly improved post reduction. Tibiotalar alignment has also markedly improved. Fine detail is diminished given overlying cast. IMPRESSION: Significant improvement in alignment of the left ankle post reduction. Medications Administered ER medications given: Dilaudid 0.5 mg IV x2 ECG Rate (beats per minute): 62 Rhythm: normal sinus Findings: + PVC Comparison ECG Date: from (May 01, 2019) Change: the following changes noted (PVCs now present) Code Status & VTE Plan Code Status Full VTE Prophylaxis Plan VTE Prophylaxis will be ordered: Yes PG Care Time/CCT Total # of Minutes Spent Total Time Spent with Patient: Total time spent is greater than 50% in coordination of care (as documented) at patient's floor/unit and/or counseling patient: Coding Level of Care Code 72082 INT INP/OBS CARE 2/55MIN Diagnoses Closed trimalleolar fracture of ankle S82.853A Essential hypertension I10 Hypertension type: essential hypertension Major depressive disorder, remission status unspecified, unspecified whether recurrent F32.9 Active/Remission status: remission status unspecified Depression Type: major depressive disorder Major depression recurrence: unspecified whether recurrent Hyperlipidemia, unspecified hyperlipidemia type E78.5 Hyperlipidemia type: unspecified (2) Hypertension Hypertension type: essential hypertension Qualified Code(s): I10 - Essential (primary) hypertension (3) Depression Active/Remission status: remission status unspecified Depression Type: major depressive disorder Major depression recurrence: unspecified whether recurrent Qualified Code(s): F32.9 - Major depressive disorder, single episode, unspecified (4) Hyperlipidemia Hyperlipidemia type: unspecified Qualified Code(s): E78.5 - Hyperlipidemia, unspecified
--- NOTE | 2023-12-14 18:25 | Orthopedic Consultation ---
Date of Consultation December 14, 2023 Assessment & Plan (1) Closed trimalleolar fracture of ankle: (2) Dislocation of left ankle joint: Plan Patient was seen and evaluated at bedside. Upon my evaluation, the Emergency Department had already attempted 1 reduction and splinting. They are postreduction x-rays demonstrated continued subluxation of the joint, as such I explained to the patient that we should attempt to repeat these. Please see separate procedure note for full details, however after my reduction attempts, although the alignment is certainly improved, I do believe that her ankle fracture is exquisitely unstable and if we were to leave her in this splint and discharge her from the emergency department, she would likely read dislocate or subluxate and this could put her skin at significant risk. Because of this, I recommend external fixation placement in order to allow for soft tissue rest and allow the soft tissue to become amenable for definitive surgical fixation. I had a long discussion with the patient and her family members who joined her at bedside. We discussed in great detail of the nature of this injury. We discussed the pathoanatomy, pathophysiology, treatment options. The patient sustained a trimalleolar ankle fracture dislocation that is severely unstable. I explained to the patient and family that definitively, the patient will require internal fixation, however this will require a period of rest so that the soft tissues may be amenable for fixation. In order to temporize her, my recommendation is to proceed with external fixation. Following placement of external fixator, we would obtain a CT scan of the ankle in order to aid with preoperative planning. I discussed the risk of external fixation with the patient and her family. The patient understands risks including loss of life or limb, infection, incomplete relief of pain, need for additional surgery, iatrogenic injury to bones, nerves, or blood vessels. Additional risks include need for open reduction, continued pain, pin tract infection, scarring following removal of external fixator. Benefits of the proposed surgery include improved alignment and ability for soft tissue rest. After a thorough discussion of the risks and benefits, the patient expressed understanding and agreed to proceed. No specific outcome guarantee was stated or implied to the patient. Patient will be admitted to the medical service. She will be cleared for placement of external fixator on the left ankle tomorrow. Will plan for this to occur tomorrow morning. She is to remain nonweightbearing on the left lower extremity. She should keep the leg elevated this evening. Following surgery she will require DVT prophylaxis prior to definitive fixation. History of Present Illness Reason for Consultation: Left ankle fracture/dislocation Requesting Physician: Dr Corona Attending Physician: Dr Gerardo History of Present Illness This is a 73-year-old female who presents for evaluation of her left ankle. The patient notes that this afternoon she was getting out of her car at the [place] when she slipped on gravel and fell. She felt immediate pain and noticed a deformity of her ankle. She then was brought to the emergency department wher e x-rays demonstrated a left ankle fracture dislocation. The emergency department attempted 1 reduction, however the ankle was noted to be severely unstable. Orthopedics was then consulted. Patient notes a past medical history significant for hypertension hyperlipidemia. She denies taking any anticoagulation. She denies any chest pain or shortness of breath at this time. She denies any additional areas of pain. Allergies Allergy/AdvReac Type Severity Reaction Status Date / Time bee venom protein (honey bee) Allergy Mild Verified 12/14/23 18:40 metoprolol Allergy Unknown Unknown Unverified 12/14/23 18:40 simvastatin Allergy Unknown Verified 12/14/23 18:40 Vdtreci-LQO-UpO Reductase AdvReac Severe Muscle Unverified 12/14/23 18:40 Inhibitor weakness, cramps rosuvastatin AdvReac Unknown MUSCLE Verified 12/14/23 18:40 WEAKNESS,CRAMPS Home Medications Medication Instructions Recorded Confirmed Type cholecalciferol (vitamin D3) 50 2,000 unit PO QAM 05/01/19 12/14/23 History mcg (2,000 unit) chewable tablet coenzyme Q10 200 mg capsule (Co 200 mg PO QAM 05/01/19 12/14/23 History Q-10) escitalopram oxalate 20 mg tablet 20 mg PO DAILY 05/01/19 12/14/23 History fluticasone propionate 50 1 spray intranasal QAM PRN Allergy 05/01/19 12/14/23 History mcg/actuation nasal Symptoms spray,suspension (Flonase Allergy Relief) glucosamine 375 ds-laimbvxic-kor 1 tab PO QAM 05/01/19 12/14/23 History no1 500 mg-C 15 mg-jamar 0.5 mg tablet (Kjvqeruaozt-Pvfrisostji-OAQ Complex) lisinopril 20 mg tablet 20 mg PO BID 05/01/19 12/14/23 History loratadine 10 mg tablet 10 mg PO QAM PRN Allergy Symptoms 05/01/19 12/14/23 History meclizine 25 mg tablet 25 mg PO TID PRN Dizziness 05/01/19 12/14/23 History multivitamin 1 tab PO QAM 05/01/19 12/14/23 History trazodone 50 mg tablet 50 mg PO HS 05/01/19 12/14/23 History verapamil 240 mg tablet,extended 240 mg PO QAM 05/01/19 12/14/23 History release magnesium oxide 400 mg (241.3 mg 400 mg PO DAILY #30 tabs 05/02/19 12/14/23 Rx magnesium) tablet clopidogrel 75 mg tablet 75 mg PO QAM 90 days #90 tabs 06/07/20 12/14/23 Rx ezetimibe 10 mg tablet 10 mg PO HS 12/14/23 12/14/23 History fluoride (sodium) 1.1 % dental 1 applic PO HS 12/14/23 12/14/23 History cream (Denta 5000 Plus) tavaborole 5 % topical solution 1 applic topical DAILY 12/14/23 12/14/23 History with applicator Patient History Medical History Depression Hyperlipidemia Hypertension Migraine Surgical History History of cholecystectomy History of hernia repair History of hysterectomy Family History Mother Diabetes Hypertension Cancer Social History Smoking Status: Never smoker Hx Alcohol Use: No Hx Substance Use: No Preferred Language: Albanian Communication Ability: Effective Public Health Representative Required: No Beliefs That Will Affect Care: None Current Living Situation: Spouse Current Living Situation Comment: Lives at home with Feels Safe at Home: Yes Assistive Devices: None Review of Systems Review of Systems: Negative unless otherwise noted in HPI Physical Exam Physical Exam: Left ankle: Patient is currently resting in a bulky splint. This was taken down and her ankle is noted to be deformed. She has moderate to severe swelling at this time. There are no open wounds appreciated. Her sensation is intact in the toes and she has palpable DP pulse with brisk capillary refill. She is able to fire EHL and FHL but this is painful. She is nontender to palpation throughout the rest of her left leg Results & Data Vital Signs (Past 12 Hours) Vital Signs Temp Pulse Resp BP Pulse Ox O2 Del Method 12/14/23 17:29 74 12/14/23 17:03 77 22 91 12/14/23 17:00 76 22 163/89 H 12/14/23 15:49 36.7 C 64 20 182/100 H 98 Room Air Diagnostic Findings X-rays of the left ankle were obtained today and personally reviewed and interpreted. These demonstrate a left ankle fracture dislocation. There is a [place] B fibula fracture, low medial malleolus fracture, and small posterior malleolus fracture. This represents a pronation injury type.
--- NOTE | 2023-12-14 18:41 | Anesthesiology Consultation ---
Date of Service December 14, 2023 Assessment & Plan Chart Review Chart Review: Acceptable Risk for Surgery and Patient NOT seen in Pre Admission Testing Consults Requested none ASA ASA3 Proposed Anesthesia Anesthesia Type: General Regional Regional Laterality: Left Site: Popliteal History Surgery Operation Date: 12/15/23 07:30 Proposed Procedures p External Fixator Application left ankle(Left) - Danny Pollock DO Height/Weight Height: 5 ft 6 in Weight: 85 kg Allergies Allergy/AdvReac Type Severity Reaction Status Date / Time bee venom protein (honey bee) Allergy Mild Verified 12/14/23 18:40 metoprolol Allergy Unknown Unknown Unverified 12/14/23 18:40 simvastatin Allergy Unknown Verified 12/14/23 18:40 Smdjhti-THN-CzS Reductase AdvReac Severe Muscle Unverified 12/14/23 18:40 Inhibitor weakness, cramps rosuvastatin AdvReac Unknown MUSCLE Verified 12/14/23 18:40 WEAKNESS,CRAMPS Medications Home Medications Medication Instructions Recorded Confirmed Last Taken cholecalciferol (vitamin D3) 50 2,000 unit PO QAM 05/01/19 12/14/23 12/14/23 mcg (2,000 unit) chewable tablet coenzyme Q10 200 mg capsule (Co 200 mg PO QAM 05/01/19 12/14/23 12/14/23 Q-10) escitalopram oxalate 20 mg tablet 20 mg PO DAILY 05/01/19 12/14/23 12/14/23 fluticasone propionate 50 1 spray intranasal QAM PRN Allergy 05/01/19 12/14/23 05/01/19 mcg/actuation nasal Symptoms spray,suspension (Flonase Allergy Relief) glucosamine 375 vc-xsczzqxyw-kbo 1 tab PO QAM 05/01/19 12/14/23 12/14/23 no1 500 mg-C 15 mg-jamar 0.5 mg tablet (Dilsilcmsfp-Colbwodmbwj-JBZ Complex) lisinopril 20 mg tablet 20 mg PO BID 05/01/19 12/14/23 12/14/23 loratadine 10 mg tablet 10 mg PO QAM PRN Allergy Symptoms 05/01/19 12/14/23 05/01/19 meclizine 25 mg tablet 25 mg PO TID PRN Dizziness 05/01/19 12/14/23 05/01/19 multivitamin 1 tab PO QAM 05/01/19 12/14/23 12/14/23 trazodone 50 mg tablet 50 mg PO HS 05/01/19 12/14/23 12/13/23 verapamil 240 mg tablet,extended 240 mg PO QAM 05/01/19 12/14/23 12/14/23 release magnesium oxide 400 mg (241.3 mg 400 mg PO DAILY #30 tabs 05/02/19 12/14/23 12/14/23 magnesium) tablet clopidogrel 75 mg tablet 75 mg PO QAM 90 days #90 tabs 06/07/20 12/14/23 12/14/23 ezetimibe 10 mg tablet 10 mg PO HS 12/14/23 12/14/23 12/13/23 fluoride (sodium) 1.1 % dental 1 applic PO HS 12/14/23 12/14/23 12/13/23 cream (Denta 5000 Plus) tavaborole 5 % topical solution 1 applic topical DAILY 12/14/23 12/14/23 12/14/23 with applicator Active Medications Generic Name Dose Route Start Last Admin Trade Name Freq PRN Reason Stop Dose Admin Hydromorphone HCl 0.5 mg 12/14/23 15:46 12/14/23 16:38 Hydromorphone Inj 0.5 Mg/0.5 Ml Syr IV 12/28/23 15:45 0.5 mg Q20M PRN Administration Severe Pain (Rating 7,8,9,10) Past Medical History HTN HLD Migaine H/A's Hx/o TIA w/ Hx/o expressive aphasia depression Exercise / Class Metabolic Activity III < 4 Walking/Shop/Light housework Past Family History Family History Mother Diabetes Hypertension Cancer Past Surgical History Surgical History History of hernia repair History of hysterectomy History of cholecystectomy Past Anesthesia History No Hx of Anesthesia Complications and No Family Hx of Anesthesia Complications History of PONV No Hx of PONV and No Hx of Motion Sickness Social History Smoking Status: Never smoker Hx Alcohol Use: No Hx Substance Use: No Physical Exam Vital Signs Last Vital Signs Temp 36.7 C 12/14/23 15:49 Pulse 66 12/14/23 18:00 Resp 19 12/14/23 17:33 BP 140/76 12/14/23 18:00 Pulse Ox 93 12/14/23 18:00 O2 Del Method Room Air 12/14/23 18:00 Testing Laboratory Results 12/14/23 15:54 12/14/23 15:54 Electrocardiogram Date: 12/14/23 Findings: + NSR @ (@ 62 w/ occasional PVC's) Other Testing 05/01/2019-Neck CTA- neg.
--- NOTE | 2023-12-14 18:53 | Procedure Note ---
Procedure Note Date of Service December 14, 2023 Note Patient: Nelli Parker Date of : 1950 Procedure: Left ankle closed reduction and splinting Surgeon: Dr. Danny Pollock, History: Patient presented to the emergency department following a slip and fall on gravel and sustained a left ankle fracture dislocation. The emergency department attempted 1 reduction, however although the alignment was improved, the ankle was noted to be unstable and the talus resubluxed. Due to this I recommended 1 more attempt at closed reduction and splinting. I explained the patient there are risks associated with close reduction attempt including but not limited to conversion to open, pain, need for additional reduction attempts, irreducible dislocation. Benefits improve improved pain control and ability for soft tissue rest. Patient understands and wishes to proceed with close reduction. Description of procedure: After obtaining verbal consent as described above, the left ankle was identified as the correct ankle. 10 cc of 1% lidocaine without epinephrine were injected into the ankle to provide a hematoma block. This was done via an anteromedial approach just medial to the tibia and tendon and just lateral to the medial malleolus. Needle placement was confirmed with withdrawal of hematoma. After appropriate analgesia had set in, I pulled manual traction and reduce the ankle. Reduction was then held while well-padded bulky Bartholomew splint was applied. Postreduction imaging was obtained, and demonstrated improved alignment, but still not completely anatomic. Due to this, I do recommend proceeding to the operating room for placement of external fixator. Plan: Patient will be admitted to medicine and should be n.p.o. at midnight tonight. We will plan to proceed to the operating room for placement of left ankle external fixator tomorrow. Coding
[2023-12-14] MEDS ORDERED: LORATADINE 10 MG TAB PO PRN (19:21)
[2023-12-14] MEDS ORDERED: FLUTICASONE PROPIONATE NA SPR 16 GM BTL NAE PRN (19:21)
[2023-12-14] MEDS ORDERED: ONDANSETRON INJ 2 MG/ML 2 ML VIAL IV PRN (21:16)
[2023-12-14] MEDS ORDERED: MoRPHine SULFATE 2 MG/ML CARP IV PRN (21:16)
[2023-12-14] MEDS ORDERED: MoRPHine SULFATE 4 MG/ML 1 ML CARP\\VIAL IV PRN (21:16)
[2023-12-14] MEDS: EZETIMIBE 10 MG TAB PO SCH (21:50)
[2023-12-14] MEDS: traZODone HCL 50 MG TAB PO SCH (21:55)
[2023-12-14] MEDS: lisinopril 20 MG TAB PO SCH (21:55)
[2023-12-14] MEDS: oxyCODONE HCL IR 5 MG TAB (IMMEDIATE RELEASE) PO PRN (21:57)
[2023-12-14] MEDS: ACETAMINOPHEN 500 MG TAB PO SCH (21:58)
[2023-12-15] MEDS: LACTATED RINGER'S 1,000 ML IV SCH (05:12)
[2023-12-15] MEDS: oxyCODONE HCL IR 5 MG TAB (IMMEDIATE RELEASE) PO PRN (07:06)
[2023-12-15] MEDS ORDERED: PROPOFOL IV EMULSION 10 MG/ML 20 ML VIAL IV ONE (07:25)
[2023-12-15] MEDS ORDERED: ONDANSETRON INJ 2 MG/ML 2 ML VIAL ONE (07:25)
[2023-12-15] MEDS ORDERED: DEXAMETHASONE SOD INJ 4 MG/ML VIAL ONE (07:25)
[2023-12-15] MEDS ORDERED: SUGAMMADEX SODIUM 200 MG/2 ML VIAL IV ONE (07:25)
[2023-12-15] MEDS ORDERED: ROCURONIUM BROMIDE 10 MG/ML 5 ML VIAL IV ONE (07:25)
[2023-12-15] MEDS ORDERED: MIDAZOLAM HCL 1 MG/ML 2ML VIAL ONE (07:25)
[2023-12-15] MEDS ORDERED: fentaNYL citrate PF 100 MCG/2 ML VIAL ONE ×2 (07:25→07:27)
[2023-12-15] MEDS ORDERED: BUPIVACAINE/EPINEPHRINE 0.25% 1:200,000 30 ML VIAL ONE (07:38)
[2023-12-15] MEDS ORDERED: SUCCINYLCHOLINE CHLORIDE 20 MG/ML 10 ML VIAL IV ONE (08:08)
[2023-12-15] MEDS ORDERED: ceFAZolin 330 MG/ML 1 GM VIAL ONE (08:08)
[2023-12-15] MEDS: ceFAZolin 2000MG 2,000 MG/15 ML SYR IV ONE (08:12)
[2023-12-15] MEDS ORDERED: diphenhydrAMINE 50 MG/ML VIAL ONE (08:14)
[2023-12-15] MEDS ORDERED: METOCLOPRAMIDE HCL INJ 5 MG/ML 2 ML VIAL ONE (08:14)
--- NOTE | 2023-12-15 08:35 | Hospitalist Progress Note ---
Date of Service December 15, 2023 Assessment & Plan (1) Closed trimalleolar fracture of ankle: Plan: 73yo female presented after trip/subsequent left ankle pain. Imaging w/ Acute displaced distal left fibular and medial malleolar fractures are noted, possible fracture posterior distal left tibia Revised cardiac risk index 1, 6.0% 30 days risk of , MS or cardiac arrest. EKG stable, no need for CXR. Medically optimized for surgery at this time Orthopedics consulted, Dr Pollock. Attempted closed reduction in ER with demonstrated improvement in alignment but still not completely anatomic and recs for admission/NPO at midnight for OR for placement of left ankle external fixator Pain control: tylenol 1000mg TID, oxycodone 5-10mg prn, morphine for breakthrough. Docusate added BID, monitor bowels/escalation as needed s/p Left Ankle Closed Reduction, Application of External Fixator(Left) - Danny Pollock, DO this morning 12/14 EBL 20cc Post op to be NWB on LLE, keep splint and dressing in place. Pain control Vitamin D pending, remains on hold replacement for now but can increase pending level CT scan following OR w/ significantly improved in alignment since prereduction radiographs DVT proph: recs for ASA 81mg but given on Plavix will place orders to resume in AM as ok w/ orthopedics and ro not suspect much bleeding from pins. PT/OT consults pending- patient without any steps to enter home--> given weekend/staffing, did alert PT but likely remaining inpatient overnight and hopeful dc in AM 12/15. (2) Hypertension: Plan: Continues on verapamil Hold lisinopril pre-operatively, will monitor BP/labs in AM and resume if stable 12/15 (3) Depression: Plan: Chronic/stable Continue Lexapro, trazodone (4) Hyperlipidemia: Plan: Continue Zetia Plan VTE Prophyalxis - Plavix resumed 12/15 PT/OT consults pending Dispo: hopeful dc 12/15 Admission and Anticipated Discharge Date Admission Date: December 14, 2023 Supervising Physician Co-Signing Physician Notes The patient was not seen by me. The chart was reviewed. Case discussed with CORRINE Cook. Agree with assessment and plan Subjective Evaluated this morning, just got back from OR for ORIF, nerve block in place/no sensation at this time/no pain. No issues with anesthesia in the past, no CP/SOB, on room air. RN to get/provide incentive spirometer and encouraged use. Discussed will see how therapy goes but do have limited access on weekend and if not able to get to her/any issues will plan to monitor overnight and plan for dc in AM. She reports she does not have any steps to enter her house and her has built her a ramp Questions/concerns addressed at this time. Results & Data Results & Data Vital Signs (Past 12 Hours) Vital Signs Temp Pulse Pulse Resp BP BP Pulse Ox 12/14/23 21:16 36.8 C 60 14 177/79 H 95 12/14/23 20:30 65 19 146/72 H 93 O2 Del Method 12/14/23 21:16 Room Air 12/14/23 20:30 Room Air Laboratory Results 12/14/23 15:54 12/14/23 15:54 Diagnostic Findings Ankle X-Ray 12/14/23 15:46 XR ankle LT min 3V routine CLINICAL HISTORY: fall, deformity COMPARISON: Left foot radiographs February 22, 2015. FINDINGS: Acute displaced distal left fibular and medial malleolar fractures are noted. Medial malleolar fracture is displaced 1.8 cm. The fibular fracture is displaced 1.9 cm. There may also be a fracture of the posterior distal left tibia. The tibiotalar joint is dislocated. Ankle soft tissue swelling is noted. IMPRESSION: Left ankle trimalleolar fracture/dislocation, as described above. ACT 112: Negative or not required by law. Electronically signed by: Stone Dhaliwal M.D. 12/14/2023 4:16 PM Ankle X-Ray 12/14/23 16:48 XR ankle LT 2V CLINICAL HISTORY: post splint COMPARISON: Left ankle radiographs performed earlier today. FINDINGS: Status post splinting. Displaced distal left tibial and fibular fractures are again noted with tibiotalar dislocation. Medial malleolar fracture is displaced 1.8 cm. Fibular fracture is displaced approximately 2.2 cm. There is soft tissue swelling. Fine detail is diminished given overlying cast. IMPRESSION: Persistent left ankle trimalleolar fracture/dislocation, as described above. ACT 112: Negative or not required by law. Electronically signed by: Stone Dhaliwal M.D. 12/14/2023 5:03 PM Ankle X-Ray 12/14/23 17:03 XR ankle LT 2V CLINICAL HISTORY: post splint placement x2 COMPARISON: Left ankle radiographs December 14, 2023 at 4:43 PM. FINDINGS: Status post reduction. Alignment of the distal left tibial and fibular fractures has significantly improved post reduction. Tibiotalar alignment has also markedly improved. Fine detail is diminished given overlying cast. IMPRESSION: Significant improvement in alignment of the left ankle post reduction. ACT 112: Negative or not required by law. Electronically signed by: Stone Dhaliwal M.D. 12/14/2023 5:30 PM Ankle X-Ray 12/15/23 00:00 FL ankle LT min 3V RTN CLINICAL HISTORY: Left ankle external fixation. COMPARISON STUDY: Left ankle radiographs November 14, 2023 at 5:00 PM. FLUOROSCOPY TIME: 52 seconds. EXPOSURE DOSE: 2.58 mGy FLUOROSCOPIC IMAGES: 6 FINDINGS: Fluoroscopy was provided during left ankle external fixation. Distal left fibular and tibial fracture alignment has improved. IMPRESSION: Fluoroscopy provided during left ankle external fixation. ACT 112: Negative or not required by law. Electronically signed by: Stone Dhaliwal M.D. 12/15/2023 9:[address] 12/15/23 09:23 CT ankle LT wo con CLINICAL HISTORY: pre op planning; please do today COMPARISON STUDY: Left ankle fluoroscopic images obtained earlier today. Left ankle radiograph November 14, 2023. TECHNIQUE: Axial images of the left ankle were obtained without IV contrast. Sagittal and coronal reconstructions were viewed. Automated exposure control was utilized for the study. A dose lowering technique was utilized adhering to the principles of ALARA. FINDINGS: External fixator device is in place. Alignment of the left trimalleolar fracture has significantly improved since prereduction radiographs. Tibiotalar joint is well aligned. An oblique distal diaphyseal left fibular fracture is displaced 4 mm. An oblique mildly displaced fracture the posterior distal left tibia is displaced 3 mm. There is an associated 4 mm intra-articular bone fragment. Talar dome is intact. There is no talar or calcaneal fracture. The medial malleolar fracture is displaced 9 mm. Left ankle soft tissue swelling is present. There is no soft tissue gas. No fractures are identified within the left midfoot. IMPRESSION: 1. Status post placement of an external fixator device for the left ankle trimalleolar fracture, as described above. Fracture alignment significantly improved since prereduction radiographs, as described above. Tibiotalar joint well aligned. 4 mm bone fragment, likely intra-articular, along the posterior tibial fracture. 2. Left ankle soft tissue swelling. No soft tissue gas. 3. No midfoot fractures identified. ACT 112: Negative or not required by law. Electronically signed by: Stone Dhaliwal M.D. 12/15/2023 10:36 AM PG Care Time/CCT Total # of Minutes Spent Total Time Spent with Patient: Total time spent is greater than 50% in coordination of care (as documented) at patient's floor/unit and/or counseling patient: Coding Level of Care Code 06684 SUB INP/OBS CARE 235MIN Diagnoses Closed trimalleolar fracture of ankle S82.853A Essential hypertension I10 Hypertension type: essential hypertension Major depressive disorder, remission status unspecified, unspecified whether recurrent F32.9 Active/Remission status: remission status unspecified Depression Type: major depressive disorder Major depression recurrence: unspecified whether recurrent Hyperlipidemia, unspecified hyperlipidemia type E78.5 Hyperlipidemia type: unspecified (2) Hypertension Hypertension type: essential hypertension Qualified Code(s): I10 - Essential (primary) hypertension (3) Depression Active/Remission status: remission status unspecified Depression Type: major depressive disorder Major depression recurrence: unspecified whether recurrent Qualified Code(s): F32.9 - Major depressive disorder, single episode, unspecified (4) Hyperlipidemia Hyperlipidemia type: unspecified Qualified Code(s): E78.5 - Hyperlipidemia, unspecified
[2023-12-15] MEDS ORDERED: POLYETHYLENE (MIRALAX) 17 GM PACK PO PRN (08:36)
[2023-12-15] MEDS ORDERED: ePHEDrine sulfate 50 MG/5 ML SYR ONE (08:43)
--- NOTE | 2023-12-15 09:07 | Fluoroscopy Report ---
FL ankle LT min 3V RTN CLINICAL HISTORY: Left ankle external fixation. COMPARISON STUDY: Left ankle radiographs November 14, 2023 at 5:00 PM. FLUOROSCOPY TIME: 52 seconds. EXPOSURE DOSE: 2.58 mGy FLUOROSCOPIC IMAGES: 6 FINDINGS: Fluoroscopy was provided during left ankle external fixation. Distal left fibular and tibia l fracture alignment has improved. IMPRESSION: Fluoroscopy provided during left ankle external fixation. ACT 112: Negative or not required by law. Electronically signed by: Stone Dhaliwal M.D. 12/15/2023 9:06 AM
--- NOTE | 2023-12-15 09:31 | Operative Report ---
Post Operative Report Pre & Post Diagnosis Operation Date: 12/15/23 07:30 Pre-Op Diagnosis: Closed trimalleolar fracture of left ankle, dislocation of left ankle joint Post-Op Diagnosis: Closed trimalleolar fracture of left ankle, dislocation of left ankle joint I identified the patient and participated in the time-out.: Yes Procedure Operation Date: 12/15/23 07:30 Actual Procedures 1. Left Ankle Closed Reduction, Application of External Fixator(Left) - Danny Pollock DO 2. Physician directed fluoroscopy less than 1 hour Surgeon Danny Pollock DO Dining Room Tables Set Up Attendant Dmitriy Nicholson PA-C Estimated Blood Loss 20 Findings Consistent with Post-Op Diagnosis Unstable trimalleolar ankle fracture, left Fluids See anesthesia record Specimens none Drains none Complications General Indications The patient presented to the emergency department 12/14/2023 after sustaining a fall in a parking lot. She was discovered to have a dislocated left ankle with a trimalleolar ankle fracture. 1 reduction attempt was made by the emergency department which failed. A second reduction maneuver was made by me, and although the ankle was within the mortise, the ankle was significantly unstable and I explained to the patient that considering the unstable nature of this fracture I do not believe that a splint will hold this long-term, and my recommendation was to proceed with an external fixator placement. I had a long discussion with the patient and her family members who joined her at bedside. We discussed in great detail of the nature of this injury. We discussed the pathoanatomy, pathophysiology, treatment options. The patient sustained a trimalleolar ankle fracture dislocation that is severely unstable. I explained to the patient and family that definitively, the patient will require internal fixation, however this will require a period of rest so that the soft tissues may be amenable for fixation. In order to temporize her, my recommendation is to proceed with external fixation. Following placement of external fixator, we would obtain a CT scan of the ankle in order to aid with preoperative planning. I discussed the risk of external fixation with the patient and her family. The patient understands risks including loss of life or limb, infection, incomplete relief of pain, need for additional surgery, iatrogenic injury to bones, nerves, or blood vessels. Additional risks include need for open reduction, continued pain, pin tract infection, scarring following removal of external fixator. Benefits of the proposed surgery include improved alignment and ability for soft tissue rest. After a thorough discussion of the risks and benefits, the patient expressed understanding and agreed to proceed. No specific outcome guarantee was stated or implied to the patient. Description of Procedure After informed consent was obtained, the patient was correctly identified in the preoperative holding suite, the operative site was marked with the surgeon's initials, the date, and the word yes. The patient was then taken to the operative suite. The department of anesthesia administered general anesthesia The patient was transferred from the [facility] to the operative table. All bony prominences were well-padded. Briefing and timeout was performed. All implants were available and sterile at the time. BRIEFING AND DEBRIEFING: Pre and post operative briefing and debriefing was performed. Introductions were made, goals of the procedure were discussed, questions and concerns were addressed. The operative site markings were identified and appropriate. A time [id number] was performed, the patient's correct identity was confirmed and the correct operative sites were identified. The patients pre-operative antibiotic dosing and administration was confirmed along with other SCIP measures. The team was polled at the completion of the surgery and all team members were in agreement that the procedure was without complication, the counts are correct, the wound class was identified and suggestions for improvement were shared. After the patient was transferred to the operative table and adequate anesthesia was provided, the patient's left lower extremity splint was removed and the leg was prepped and draped in standard sterile fashion. Using the 5 pin jig, we located where our tibial pins would be placed. Incisions were made just medial to the tibial crest and blunt dissection was carried down to bone using a hemostat. A 3.5 mm drill was used to pre-drill bicortically the tibia.2 x 5 x 150 mm Schanz pins were selected, and then the Schanz pins were placed and their position was confirmed using fluoroscopy. We then obtained a lateral of the ankle and identified our start point for the 5 mm centrally threaded calcaneal Schanz pin. Once the site was identified, a maria guadalupe incision was made in the skin and blunt dissection was carried down to the calcaneus using hemostat. We were sure to remain posterior to avoid the sural nerve. We then introduced the calcaneal pin through the calcaneus until it was tenting the medial side and an incision was made over it to allow easy passage. This was screwed into place so that the threads were within the calcaneus. Next, our external fixator delta frame was constructed and the clamps were provisionally tightened. A reduction maneuver including traction and medial translation of the talus were then performed and adequate reduction was confirmed using fluoroscopy. All the clamps were tightened using the box wrench. Final fluoroscopic views were obtained. We then covered the pin sites with Betadine soaked Adaptic, fluffs, sterile web roll and applied a well-padded posterior slab splint to keep the ankle and foot from drifting into equinus. The patient tolerated this procedure well and was transferred to the PACU in stable condition. Prior to transportation to PACU, all counts were correct. Physician-directed fluoroscopy for less than one hour was performed by myself to verify fracture alignment and the safe placement of all fixation. The final ministerio ges saved to PACs showed views demonstrating satisfactory alignment of the fracture and stable fixation. Implant verification was performed by the senior surgeon by reading and confirming the implant information on the packaging with the team before the sterile implants were opened. Postoperative plan: - Patient is remain nonweightbearing on the left lower extremity - Patient should keep the splint and dressing in place. No pin care as needed -Multimodal pain control avoiding anti-inflammatory medications - CT scan to be obtained for preoperative planning purposes - Aspirin 81 mg for DVT prophylaxis can start today - Patient will be evaluated by physical therapy and Occupational Therapy to determine a safe discharge plan - Patient will follow-up with me in clinic at the end of this week to plan for definitive surgical fixation - Vitamin D labs pending, will be repleted as necessary I was present for the entire procedure I attest to the content of the Intraoperative Record and any orders documented therein. Any exceptions are noted below.
--- NOTE | 2023-12-15 09:36 | Post Operative Brief Note ---
Immediate Post Op Note Date of Surgery December 15, 2023 Pre & Post Diagnosis Operation Date: 12/15/23 07:30 Pre-Op Diagnosis: Closed trimalleolar fracture of left ankle, dislocation of left ankle joint Post-Op Diagnosis: Closed trimalleolar fracture of left ankle, dislocation of left ankle joint I identified the patient and participated in the time-out.: Yes Procedure Operation Date: 12/15/23 07:30 Actual Procedures p Left Ankle Closed Reduction, Application of External Fixator(Left) - Danny Pollock DO Surgeon Danny Pollock DO Alumni Secretary Dmitriy Nicholson PA-C Estimated Blood Loss 20 Findings See Below (Unstable left ankle fracture status post application of external fixator) Unstable left ankle fracture Fluids See anesthesia record Complications No immediate complication Disposition Accompanied Patient To Recovery: Yes Overlapping Procedure I was present for: the critical portions of procedure. (The entire procedure)
[2023-12-15] MEDS ORDERED: PROMETHAZINE HCL 6.25 MG in SODIUM CHLORIDE 0.9% 50 ML IV PRN (09:40)
[2023-12-15] MEDS ORDERED: ATROPINE SULFATE 0.1 MG/ML 10ML SYR IV PRN (09:40)
[2023-12-15] MEDS ORDERED: HYDROmorphone INJ 1 MG/ML SYRINGE IV PRN (09:40)
[2023-12-15] MEDS ORDERED: fentaNYL citrate PF 100 MCG/2 ML VIAL IV PRN (09:40)
[2023-12-15] MEDS ORDERED: ePHEDrine sulfate 50 MG/ML AMP IV PRN (09:40)
[2023-12-15] MEDS ORDERED: NALOXONE HCL 0.4 MG/1 ML VIAL/CARP IV PRN ×2 (09:40→10:31)
[2023-12-15] MEDS ORDERED: FLUMAZENIL 0.1 MG/1 ML 10 ML VIAL IV PRN (09:40)
--- NOTE | 2023-12-15 10:04 | Anesthesiology Progress Note ---
Date of Service December 15, 2023 Anesthesia Post Procedure Vital Signs Vital Signs: Temp Pulse Pulse Pulse Resp BP BP 12/15/23 09:55 79 17 118/63 12/15/23 09:45 80 14 138/66 12/15/23 09:35 81 14 140/73 12/15/23 09:25 84 20 164/79 H 12/15/23 09:16 36 C L 85 16 163/83 H 12/14/23 21:16 36.8 C 60 14 177/79 H 12/14/23 20:30 65 19 146/72 H 12/14/23 20:00 63 22 143/80 H 12/14/23 19:33 64 23 12/14/23 19:30 128/73 12/14/23 19:24 67 17 12/14/23 19:06 66 20 12/14/23 19:00 119/77 12/14/23 18:57 67 22 12/14/23 18:00 66 140/76 12/14/23 17:33 74 19 12/14/23 17:30 159/85 H 12/14/23 17:29 74 12/14/23 17:03 77 22 12/14/23 17:00 76 22 163/89 H 12/14/23 15:49 36.7 C 64 20 182/100 H Pulse Ox O2 Del Method O2 Flow Rate 12/15/23 09:55 96 Room Air 12/15/23 09:45 95 Oxymask 2 12/15/23 09:35 96 Oxymask 3 12/15/23 09:25 98 Oxymask 6 12/15/23 09:16 96 Oxymask 10 12/14/23 21:16 95 Room Air 12/14/23 20:30 93 Room Air 12/14/23 20:00 95 Room Air 12/14/23 19:33 93 Room Air 12/14/23 19:30 12/14/23 19:24 93 Room Air 12/14/23 19:06 94 Room Air 12/14/23 19:00 12/14/23 18:57 94 Room Air 12/14/23 18:00 93 Room Air 12/14/23 17:33 94 Room Air 12/14/23 17:30 12/14/23 17:29 12/14/23 17:03 91 12/14/23 17:00 12/14/23 15:49 98 Room Air Pain Intensity Left Ankle: Pain Intensity: 6 Transfer of Care Handoff Completed per policy Notes Mental Status: alert / awake / arousable Patient Amnestic to Procedure: Yes Nausea / Vomiting: adequately controlled Pain: adequately controlled Airway Patency, RR, SpO2: stable & adequate BP & HR: stable & adequate Hydration State: stable & adequate Anesthetic Complications: no major complications apparent
[2023-12-15] MEDS ORDERED: MAGNESIUM HYDROXIDE SUSP 30 ML UDC PO PRN (10:31)
[2023-12-15] MEDS ORDERED: bisacodyL 10 MG SUPP PR PRN (10:31)
[2023-12-15] MEDS: VERAPAMIL HCL 240 MG TABCR PO SCH (10:33)
[2023-12-15] MEDS: ESCITALOPRAM OXALATE 20 MG TAB PO SCH (10:33)
[2023-12-15] MEDS: MAGNESIUM OXIDE 400 MG TAB PO SCH (10:33)
[2023-12-15] MEDS: CHOLECALCIFEROL 25 MCG (1000 UNITS) TAB PO SCH (10:34)
[2023-12-15] MEDS: DOCUSATE SODIUM 100 MG CAP PO SCH (10:34)
--- NOTE | 2023-12-15 10:39 | CT Scan Report ---
CT ankle LT wo con CLINICAL HISTORY: pre op planning; please do today COMPARISON STUDY: Left ankle fluoroscopic images obtained earlier today. Left ankle radiograph [facility] 2023. TECHNIQUE: Axial images of the left ankle were obtained without IV contrast. Sagittal and coronal rec onstructions were viewed. Automated exposure control was utilized for the study. A dose lowering tomer hnique was utilized adhering to the principles of ALARA. FINDINGS: External fixator device is in place. Alignment of the left trimalleolar fracture has signif icantly improved since prereduction radiographs. Tibiotalar joint is well aligned. An oblique distal diaphyseal left fibular fracture is displaced 4 mm. An oblique mildly displaced fracture the posterio r distal left tibia is displaced 3 mm. There is an associated 4 mm intra-articular bone fragment. Emerson ar dome is intact. There is no talar or calcaneal fracture. The medial malleolar fracture is displace d 9 mm. Left ankle soft tissue swelling is present. There is no soft tissue gas. No fractures are nadeem ntified within the left midfoot. IMPRESSION: 1. Status post placement of an external fixator device for the left ankle trimalleolar fracture, as d escribed above. Fracture alignment significantly improved since prereduction radiographs, as describ ed above. Tibiotalar joint well aligned. 4 mm bone fragment, likely intra-articular, along the javascript front end developer ior tibial fracture. 2. Left ankle soft tissue swelling. No soft tissue gas. 3. No midfoot fractures identified. ACT 112: Negative or not required by law. Electronically signed by: Stone Dhaliwal M.D. 12/15/2023 10:36 AM
[2023-12-15] MEDS: SODIUM CHLORIDE 0.9% 1,000 ML IV SCH (10:57)
[2023-12-15 11:10] LABS: Hematocrit (blood only) 39.3 % (37.0-47.0); Hemoglobin 12.2 g/dl (12.0-16.0); Mean Corpuscular Hemoglobin 29.3 pg (25.0-34.0); Mean Corpuscular Volume 94.2 fL (80.0-100.0); Mean Platelet Volume 10.2 fL (9.4-12.4); Platelet Count 177 K/uL (130-400); RDW Coefficient of Variation 12.6 % (11.5-14.5); RDW Standard Deviation 43.9 fL (36.4-46.3); Red Blood Count 4.17 M/uL (4.20-5.40); White Blood Count 9.61 K/ul (4.8-10.8)
[2023-12-15 11:25] LABS: BUN Creatinine Ratio 24.1 (10-20); Calcium 9.3 mg/dl (8.6-10.3); Creatinine Clr Calc Pharmacy 64.3 ml/min; Magnesium 1.7 mg/dl (1.7-2.4)
--- NOTE | 2023-12-15 13:40 | Communication Note ---
Date of Service: December 15, 2023 Vitamin D level returned >120 Will STOP further supplementation/would discontinue at discharge. Ca level 9.8 on admission w/ priors 10.0 and suspect overtreatment. Rec outpt f[facility]CP [facility]
--- NOTE | 2023-12-15 14:23 | Electrocardiogram Report ---
Test Reason : Blood Pressure : */* mmHG Vent. Rate : 62 BPM Atrial Rate : 62 BPM P-R Int : 154 ms QRS Dur : 82 ms QT Int : 442 ms P-R-T Axes : 73 27 48 degrees QTcB Int : 448 ms Sinus rhythm with occasional Premature ventricular complexes Otherwise normal ECG When compared with ECG of 01-May-2019 12:39, Premature ventricular complexes are now Present Confirmed by Kali Hardwick ([id number]) on 12/15/2023 2:23:04 PM Referred By: REFERRED SELF Confirmed By: Kali Hardwick
[2023-12-15] MEDS: ceFAZolin 2000MG 2,000 MG/15 ML SYR IV SCH (15:42)
[2023-12-15] MEDS ORDERED: DOCUSATE SODIUM 100 MG CAP PO SCH (21:00)
--- NOTE | 2023-12-16 07:06 | Orthopedic Progress Note ---
<Statement entered by Danny Pollock, DO - 12/19/23 07:15> Patient doing well postoperatively #1. She will follow-up with me in clinic next week to do a swelling check and plan for definitive fixation. She is to remain nonweightbearing on the operative extremity. Date of Service December 16, 2023 Assessment & Plan (1) Closed trimalleolar fracture of ankle: Plan: Postop day 1 status post application external fixator left trimalleolar ankle fracture dislocation PT/OT protocols. Nonweightbearing left lower extremity. DVT prophylaxis-SCDs; Pt on Plavix. Ok to resume Plavix on discharge (Resume 12/17/23) Pain management as written. CT scan done. DC planning - Plan for dc to home with f/u with Dr. Pollock next Saturday for dressing change. He will discuss plans for further surgery at that time. (2) Dislocation of left ankle joint: Plan Patient was seen and evaluated at bedside. Upon my evaluation, the Emergency Department had already attempted 1 reduction and splinting. They are postreduction x-rays demonstrated continued subluxation of the joint, as such I explained to the patient that we should attempt to repeat these. Please see separate procedure note for full details, however after my reduction attempts, although the alignment is certainly improved, I do believe that her ankle fracture is exquisitely unstable and if we were to leave her in this splint and discharge her from the emergency department, she would likely read dislocate or subluxate and this could put her skin at significant risk. Because of this, I recommend external fixation placement in order to allow for soft tissue rest and allow the soft tissue to become amenable for definitive surgical fixation. I had a long discussion with the patient and her family members who joined her at bedside. We discussed in great detail of the nature of this injury. We discussed the pathoanatomy, pathophysiology, treatment options. The patient sustained a trimalleolar ankle fracture dislocation that is severely unstable. I explained to the patient and family that definitively, the patient will require internal fixation, however this will require a period of rest so that the soft tissues may be amenable for fixation. In order to temporize her, my recommendation is to proceed with external fixation. Following placement of external fixator, we would obtain a CT scan of the ankle in order to aid with preoperative planning. I discussed the risk of external fixation with the patient and her family. The patient understands risks including loss of life or limb, infection, incomplete relief of pain, need for additional surgery, iatrogenic injury to bones, nerves, or blood vessels. Additional risks include need for open reduction, continued pain, pin tract infection, scarring following removal of external fixator. Benefits of the proposed surgery include improved alignment and ability for soft tissue rest. After a thorough discussion of the risks and benefits, the patient expressed understanding and agreed to proceed. No specific outcome guarantee was stated or implied to the patient. Patient will be admitted to the medical service. She will be cleared for placement of external fixator on the left ankle tomorrow. Will plan for this to occur tomorrow morning. She is to remain nonweightbearing on the left lower extremity. She should keep the leg elevated this evening. Following surgery she will require DVT prophylaxis prior to definitive fixation. Admission and Anticipated Discharge Date Admission Date: December 14, 2023 Subjective Postop day 1 Patient sitting up in bed awake and alert. Left lower extremity is elevated up on at least 2 pillows. No complaints this morning. Pain is controlled. Physical Exam Physical Exam: Dressings are clean, dry, and intact. External fixator is stable. No overt drainage on dressings. Toes are warm and mobile. Sensation intact. Results & Data Vital Signs (Past 12 Hours) Vital Signs Temp Pulse Resp BP Pulse Ox O2 Del Method 12/16/23 03:43 36.5 C 58 L 16 154/84 H 94 Room Air 12/16/23 00:00 36.6 C 59 L 16 127/72 92 Room Air 12/15/23 19:56 36.9 C 65 16 115/72 93 Room Air Laboratory Results Laboratory Results WBC 9.61 K/ul (4.8-10.8) 12/15/23 10:54 RBC 4.17 M/uL (4.20-5.40) L 12/15/23 10:54 Hgb 12.2 g/dl (12.0-16.0) 12/15/23 10:54 Hct 39.3 % (37.0-47.0) 12/15/23 10:54 MCV 94.2 fL (80.0-100.0) 12/15/23 10:54 MCH 29.3 pg (25.0-34.0) 12/15/23 10:54 MCHC 31.0 g/dL (32.0-36.0) L 12/15/23 10:54 RDW Std Deviation 43.9 fL (36.4-46.3) 12/15/23 10:54 RDW Coeff of Jaskaran 12.6 % (11.5-14.5) 12/15/23 10:54 Plt Count 177 K/uL (130-400) 12/15/23 10:54 MPV 10.2 fL (9.4-12.4) 12/15/23 10:54 Immature Gran % (Auto) 0.4 % 12/14/23 15:54 Neut % (Auto) 69.3 % 12/14/23 15:54 Lymph % (Auto) 18.1 % 12/14/23 15:54 Faulk % (Auto) 7.4 % 12/14/23 15:54 Eos % (Auto) 3.8 % 12/14/23 15:54 Baso % (Auto) 1.0 % 12/14/23 15:54 Neut # (Auto) 5.43 K/uL (1.40-6.50) 12/14/23 15:54 Lymph # (Auto) 1.42 K/uL (1.20-3.40) 12/14/23 15:54 Faulk # (Auto) 0.58 K/uL (0.11-0.59) 12/14/23 15:54 Eos # (Auto) 0.30 K/uL (0.00-0.50) 12/14/23 15:54 Baso # (Auto) 0.08 K/uL (0.00-0.20) 12/14/23 15:54 Immature Gran # (Auto) 0.03 K/uL (0.01-0.20) 12/14/23 15:54 Sodium 139 mmol/L (136-145) 12/15/23 10:54 Potassium 4.0 mmol/L (3.5-5.1) 12/15/23 10:54 Chloride 103 mmol/L (98-107) 12/15/23 10:54 Carbon Dioxide 29 mmol/L (21-32) 12/15/23 10:54 Anion Gap 7 (3-11) 12/15/23 10:54 BUN 20 mg/dl (6-23) 12/15/23 10:54 Creatinine 0.83 mg/dl (0.6-1.2) 12/15/23 10:54 Est Cr Clr Drug Dosing 64.3 ml/min 12/15/23 10:54 eGFR 73.47 12/15/23 10:54 BUN/Creatinine Ratio 24.1 (10-20) H 12/15/23 10:54 Glucose 126 mg/dl (70-99(Fasting)) H 12/15/23 10:54 Calcium 9.3 mg/dl (8.6-10.3) 12/15/23 10:54 Magnesium 1.7 mg/dl (1.7-2.4) 12/15/23 10:54 Total Bilirubin 0.3 mg/dl (0.2-1.0) 12/14/23 15:54 AST 20 U/L (13-39) 12/14/23 15:54 ALT 15 U/L (7-52) 12/14/23 15:54 Alkaline Phosphatase 43 U/L (34-104) 12/14/23 15:54 Total Protein 6.4 gm/dl (6.0-8.3) 12/14/23 15:54 Albumin 4.2 gm/dl (3.4-5.0) 12/14/23 15:54 Globulin 2.2 gm/dl (2.5-4.0) L 12/14/23 15:54 Albumin/Globulin Ratio 1.9 (0.9-2) 12/14/23 15:54 25-OH Vitamin D Total > 120.0 ng/ml (30-100) H 12/15/23 10:54 Impressions Ankle X-Ray 12/15/23 00:00 FL ankle LT min 3V RTN CLINICAL HISTORY: Left ankle external fixation. COMPARISON STUDY: Left ankle radiographs November 14, 2023 at 5:00 PM. FLUOROSCOPY TIME: 52 seconds. EXPOSURE DOSE: 2.58 mGy FLUOROSCOPIC IMAGES: 6 FINDINGS: Fluoroscopy was provided during left ankle external fixation. Distal left fibular and tibial fracture alignment has improved. IMPRESSION: Fluoroscopy provided during left ankle external fixation. ACT 112: Negative or not required by law. Electronically signed by: Stone Dhaliwal M.D. 12/15/2023 9:[address] 12/15/23 09:23 CT ankle LT wo con CLINICAL HISTORY: pre op planning; please do today COMPARISON STUDY: Left ankle fluoroscopic images obtained earlier today. Left ankle radiograph November 14, 2023. TECHNIQUE: Axial images of the left ankle were obtained without IV contrast. Sagittal and coronal reconstructions were viewed. Automated exposure control was utilized for the study. A dose lowering technique was utilized adhering to the principles of ALARA. FINDINGS: External fixator device is in place. Alignment of the left trimalleolar fracture has significantly improved since prereduction radiographs. Tibiotalar joint is well aligned. An oblique distal diaphyseal left fibular fracture is displaced 4 mm. An oblique mildly displaced fracture the posterior distal left tibia is displaced 3 mm. There is an associated 4 mm intra-articular bone fragment. Talar dome is intact. There is no talar or calcaneal fracture. The medial malleolar fracture is displaced 9 mm. Left ankle soft tissue swelling is present. There is no soft tissue gas. No fractures are identified within the left midfoot. IMPRESSION: 1. Status post placement of an external fixator device for the left ankle trimalleolar fracture, as described above. Fracture alignment significantly improved since prereduction radiographs, as described above. Tibiotalar joint well aligned. 4 mm bone fragment, likely intra-articular, along the posterior tibial fracture. 2. Left ankle soft tissue swelling. No soft tissue gas. 3. No midfoot fractures identified. ACT 112: Negative or not required by law. Electronically signed by: Stone Dhaliwal M.D. 12/15/2023 10:36 AM
[2023-12-16 07:13] VITALS: BP 156/80; PULSE 63; RESP 18; TEMP 98.1; O2SAT 96
--- NOTE | 2023-12-16 08:18 | Hospitalist Progress Note ---
Date of Service December 16, 2023 Assessment & Plan (1) Closed trimalleolar fracture of ankle: Plan: 73yo female presented after trip/subsequent left ankle pain. Imaging w/ Acute displaced distal left fibular and medial malleolar fractures are noted, possible fracture posterior distal left tibia Revised cardiac risk index 1, 6.0% 30 days risk of , [place] or cardiac arrest. EKG stable, no need for CXR. Medically optimized for surgery at this time Orthopedics consulted, Dr Pollock. Attempted closed reduction in ER with demonstrated improvement in alignment but still not completely anatomic and recs for admission/NPO at midnight for OR for placement of left ankle external fixator s/p Left Ankle Closed Reduction, Application of External Fixator(Left) - Danny Pollock, DO on 12/14. EBL 20cc CT scan w/ significantly improved in alignment since prereduction radiographs Post op to be NWB on LLE, keep splint and dressing in place. Pain control w/ tylenol TID, oxycodone for breakthrough (appears not having to have needed any oxycodone at this time Bowel regimen: Docusate added BID, monitor bowels/escalation as needed Vitamin D level obtained, >120. STOPPED VIT D supplementation. F/u PCP DVT proph: Discussed with Dr Pollock, can resume home Plavix 75mg for 12/15 as initial recs for ASA 81mg. Will need held pre-op once surgery timing established following follow up with Dr Pollock in ~1wk for dressing change/discussion of surgery PT.OT consulted, hopeful dc to home if does well (no steps at home, has ramp for entry) (2) Hypertension: Plan: Continues on verapamil, BP 156/80 this morning and no hypotension/stable renal function this morning and will resume lisinopril 20mg BID. Notable K 4.3 but no prior hx hyperkalemia and has been on for some time Monitor BP for any issues (3) Depression: Plan: Chronic/stable Continue Lexapro, trazodone (4) Hyperlipidemia: Plan: Continue Zetia Plan VTE Prophyalxis - Plavix resumed 12/15 PT/OT consults pending Dispo: hopeful dc 12/15 Admission and Anticipated Discharge Date Admission Date: December 14, 2023 Results & Data Results & Data Vital Signs (Past 12 Hours) Vital Signs Temp Pulse Pulse Resp BP Pulse Ox O2 Del Method 12/16/23 07:12 36.7 C 63 18 156/80 H 96 Room Air 12/16/23 03:43 36.5 C 58 L 16 154/84 H 94 Room Air 12/16/23 00:00 36.6 C 59 L 16 127/72 92 Room Air PG Care Time/CCT Total # of Minutes Spent Total Time Spent with Patient: Total time spent is greater than 50% in coordination of care (as documented) at patient's floor/unit and/or counseling patient: Coding Diagnoses Closed trimalleolar fracture of ankle S82.853A Essential hypertension I10 Hypertension type: essential hypertension Major depressive disorder, remission status unspecified, unspecified whether recurrent F32.9 Active/Remission status: remission status unspecified Depression Type: major depressive disorder Major depression recurrence: unspecified whether recurrent Hyperlipidemia, unspecified hyperlipidemia type E78.5 Hyperlipidemia type: unspecified (2) Hypertension Hypertension type: essential hypertension Qualified Code(s): I10 - Essential (primary) hypertension (3) Depression Active/Remission status: remission status unspecified Depression Type: major depressive disorder Major depression recurrence: unspecified whether recurrent Qualified Code(s): F32.9 - Major depressive disorder, single episode, unspe cified (4) Hyperlipidemia Hyperlipidemia type: unspecified Qualified Code(s): E78.5 - Hyperlipidemia, unspecified
[2023-12-16 08:46] LABS: Hematocrit (blood only) 35.3 % (37.0-47.0); Hemoglobin 11.7 g/dl (12.0-16.0); Mean Corpuscular Hemoglobin 30.3 pg (25.0-34.0); Mean Corpuscular Hgb Conc 33.1 g/dL (32.0-36.0); Mean Corpuscular Volume 91.5 fL (80.0-100.0); Mean Platelet Volume 10.7 fL (9.4-12.4); Platelet Count 184 K/uL (130-400); RDW Coefficient of Variation 12.6 % (11.5-14.5); RDW Standard Deviation 42.2 fL (36.4-46.3); Red Blood Count 3.86 M/uL (4.20-5.40); White Blood Count 7.38 K/ul (4.8-10.8)
[2023-12-16 08:54] LABS: Calcium 9.6 mg/dl (8.6-10.3); Creatinine Clr Calc Pharmacy 69.3 ml/min; Magnesium 1.8 mg/dl (1.7-2.4); Potassium 4.3 mmol/L (3.5-5.1)
[2023-12-16] MEDS: CLOPIDOGREL BISULFATE 75 MG TAB PO SCH (09:02)
[2023-12-16] MEDS: MULTIVITAMIN TAB PO SCH (09:02)
--- NOTE | 2023-12-16 11:28 | Discharge Summary ---
Discharge Summary Date of Service December 16, 2023 Principal Dx & Hospital Course #1 = Principal Diagnosis (1) Closed trimalleolar fracture of ankle: 73yo female presented after trip/subsequent left ankle pain. Imaging w/ Acute displaced distal left fibular and medial malleolar fractures are noted, possible fracture posterior distal left tibia Orthopedics consulted, Dr Pollock. Attempted closed reduction in ER with demonstrated improvement in alignment but still not completely anatomic and recs for admission/NPO at midnight for OR for placement of left ankle external fixator s/p Left Ankle Closed Reduction, Application of External Fixator(Left) - Danny Pollock DO on 12/14. EBL 20cc CT scan w/ significantly improved in alignment since prereduction radiographs Post op to be NWB on LLE, keep splint and dressing in place. Doing well post-operatively, vitals/electrolytes/renal function stable and pain well controlled with tylenol TID and has not used any further oxycodone. -- was sent rx in case needed and encouraged OTC bowel regimen if constipation occurs and was given colace BID while inpatient PT/OT consulted and recs for HH, CM arranging DVT proph: plavix resumed post-op 12/15, minimal bleeding from pins. Will need held in f/u with orthopedics prior to surgery, timing TBD pending date/arrangements Of note, Vitamin D level obtained, >120. Did have prior Ca levels ~10, was 9.8 on admission. STOPPED VIT D supplementation to prevent overcorrection/hypercalcemia. F/u PCP (2) Hypertension: Continued on verapamil, lisinopril held post-operatively to prevent hypotensio n/renal impairment and BP 156/80 AM 12/15 and no hypotension/stable renal function and resumed resumed lisinopril 20mg BID. Notable K 4.3 but no prior hx hyperkalemia and has been on for some time (3) Depression: Chronic/stable and continued on lexapro, trazodone HS (4) Hyperlipidemia: Continued Zetia, statin intolerant apparently. F/u PCP Plan Discharged with home health, outpatient follow up with Dr Pollock for eventual surgery once swelling decreased/dressing removed and evaluated. Notes For Next Care Provider Ensure follow up with Dr Pollock from orthopedics for follow up/scheduling surgery following her ORIF. Will need plavix held prior to surgery to prevent bleeding Medication Changes From Visit Tylenol prn, oxycodone prn Encouraged OTC bowel regimen as needed B12 PO supplementation Admission HPI Per Admitting Provider Nelli Parker is a 73-year-old female who presents to the ER after a trip a nd subsequent left ankle pain. No chest pain, shortness of breath or dizziness prior to falling. She reports current severity of ankle pain 2/10. No other injuries from her fall. No history of heart attacks. Possible prior stroke on MRI in 2019 mentioned by neurologist although not on Brain MRI a that time. Otherwise at baseline. No chest pains or shortness of breath on exertion. She has a history of migraines once a month but are relived with acetaminophen alone. Admission Exam Per Admitting Provider Constitutional: WD/WN, vitals as above ENMT: external ear and nose normal, oropharynx normal Respiratory: normal respiratory effort, lungs clear to auscultation Cardiovascular: RRR, no murmur, no edema Gastrointestinal (Abdomen): normal bowel sounds, soft, nontender, no he patosplenomegaly Musculoskeletal: Left ankle wrapped and not removed, sensation intact in toes and able to dorsi/plantarflex 1st toe Neurologic: awake; not confused Psychiatric: A+Ox3, euthymic affect Discharge Exam General: WD/WN obese female laying in bed, NAD, wanting to go home Head atraumatic,normocephalic, mmm Resp: even/unlabored, no w/c/r, on room air CV: RRR, no significant m/r/g, no pitting edema/calf tenderness, cap refill wnl/pulses present GI: +BS, soft/NT : no myrick MSK/Neuro: dressing/splint to LLE, external fixator in palce, no overt drainage. Toes mobile/warm, sensation returned and cap refill wnl Psych: AOx3, cooperative/pleasant Discharge Plan Discharge Items Patient Disposition: Home - Home Health Services Reason For Visit: TRIMALLEOLAR ANKLE FRACTURE Discharge Diagnosis: Left ankle fracture requiring surgical intervention/ORIF Goals: You have been hospitalized for an urgent problem which required surgery. During your stay at [facility], we have made an effort to correct the problem that brought you to the hospital while keeping you as comfortable as possible. Surgery and medications were used to bring your condition under control and your discharge instructions will include directions for any medications you should take after leaving the hospital. Please make sure to follow the advice of your surgeon regarding follow up with the surgeon and with your primary care provider. Activity: As commented below Activity Comment: non weight bearing LEFT LOWER EXTREMITITY, keep splint/dresing in place Non-emergency contact: Primary Care Provider and Surgeon Call non-emergency contact if: you have any medication questions, your symptoms worsen, your pain is not controlled, your pain is concerning for you and you have a fever Follow-up/Referrals: Robert Gerardo MD [Primary Care Provider] - Danny Pollock DO [Surgeon] - (Follow up next Saturday , 12/23/23, for dressing change. Please call for an appointment. ) Diet: Heart Healthy Addtl Attending Provider Instructions: You have been hospitalized and found to have left ankle fracture. This was attempted to be reduced on admission but needed better alignment and were taken to the OR with Dr Pollock for surgical correction and pins to help get back into correct alignment and for healing and allow for swelling to go down before eventual definitive surgical correction which is going to be arranged in follow up. You will need to be non weight bearing as tolerated to the left leg and therapy evaluations were undertaken while in the hospital and recommend home health, which has been arranged. Your Plavix has been resumed post-op and per Dr Pollock, do not need additional medications for blood clot prevention. You can continue oral oxycodone for pain as well as Tylenol and please monitor for any constipation as pain medications can cause this and would recommend continuing a bowel regimen with Colace and miralax to prevent constipation while taking these medications. Vitamin D level was HIGH. We have STOPPED your supplementation as too much can cause elevated calcium levels which can cause weakness/fatigue/constipation as well as other symptoms and you should follow up discussions if needing restarted in the future possibly at a lower dose but would not continue at this time given levels. We did check B12 level given balance issues and while NOT LOW, is on the low end of normal and did send prescription for supplementation but usually is not covered by insurance and can buy this over the counter as well. Please follow up with orthopedics in the next 7-10 days days for routine check up/surgery planning. You should have follow up with primary care in the next 7-10 days after discharge to monitor your status after hospitalization. Please return to the ER with any increased pain, fever/chills, increased/uncontrolled bleeding, drainage or for any other symptoms concerning for you. It has been a pleasure being a part of the medical team providing for you while you have been in the hospital. Take care! Pending Studies at Discharge: No Stand-Alone Forms: My [facility], Smoking Cessation Medications and DC Order Prescriptions: New acetaminophen [Tylenol Extra Strength] 500 mg Tablet 1,000 mg PO TID 14 Days Qty: 84 0RF oxycodone 5 mg tablet 5 mg PO Q4H MDD 6 tabs PRN (Reason: pain) Qty: 18 0RF cyanocobalamin (vitamin B-12) 1,000 mcg capsule 1,000 mcg PO DAILY Qty: 30 0RF Continued clopidogrel 75 mg tablet 75 mg PO QAM 90 Days Qty: 90 3RF multivitamin Tablet 1 tab PO QAM trazodone 50 mg Tablet 50 mg PO HS lisinopril 20 mg tablet 20 mg PO BID meclizine 25 mg Tablet 25 mg PO TID PRN (Reason: Dizziness) verapamil 240 mg Tablet Extended Release 240 mg PO QAM fluticasone propionate [Flonase Allergy Relief] 50 mcg/actuation [place],Suspension 1 spray INTRANASAL QAM PRN (Reason: Allergy Symptoms) loratadine 10 mg Tablet 10 mg PO QAM PRN (Reason: Allergy Symptoms) escitalopram oxalate 20 mg Tablet 20 mg PO DAILY coenzyme Q10 [Co Q-10] 200 mg Capsule 200 mg PO QAM Iczhyvycrlj-Nzyui-JJA Complex 581-634-25-0.5 mg Tablet 1 tab PO QAM magnesium oxide 400 mg (241.3 mg magnesium) tablet 400 mg PO DAILY Qty: 30 0RF ezetimibe 10 mg tablet 10 mg PO HS fluoride (sodium) [Denta 5000 Plus] 1.1 % cream 1 applic PO HS tavaborole 5 % solution with applicator 1 applic TOPICAL DAILY Discontinued cholecalciferol (vitamin D3) 2,000 unit Tablet,Chewable 2,000 unit PO QAM Discharge Orders: Discharge Order (Routine); Ordered 12/16/23 Ordered By: Julia Sanz/Other Patient Handouts: Ankle Fracture ORIF Admission Data Admit Date/Time: 12/14/23 18:05 Attending Provider: Osito Craft Admit Provider: Merlin Comer Primary Care Provider: Robert Gerardo Other Providers: [facility] Hospital Stay Data Procedures Performed Operation Date: 12/15/23 07:30 Actual Procedures p Application of External Fixator(Left) - Danny Pollock DO s Left Ankle Closed Reduction,(Left) - Danny Pollock DO Diagnostic Imagining Performed Ankle X-Ray 12/14/23 15:46 XR ankle LT min 3V routine CLINICAL HISTORY: fall, deformity COMPARISON: Left foot radiographs February 22, 2015. FINDINGS: Acute displaced distal left fibular and medial malleolar fractures are noted. Medial malleolar fracture is displaced 1.8 cm. The fibular fracture is displaced 1.9 cm. There may also be a fracture of the posterior distal left tibia. The tibiotalar joint is dislocated. Ankle soft tissue swelling is noted. IMPRESSION: Left ankle trimalleolar fracture/dislocation, as described above. ACT 112: Negative or not required by law. Electronically signed by: Stone Dhaliwal M.D. 12/14/2023 4:16 PM Ankle X-Ray 12/14/23 16:48 XR ankle LT 2V CLINICAL HISTORY: post splint COMPARISON: Left ankle radiographs performed earlier today. FINDINGS: Status post splinting. Displaced distal left tibial and fibular fractures are again noted with tibiotalar dislocation. Medial malleolar fracture is displaced 1.8 cm. Fibular fracture is displaced approximately 2.2 cm. There is soft tissue swelling. Fine detail is diminished given overlying cast. IMPRESSION: Persistent left ankle trimalleolar fracture/dislocation, as described above. ACT 112: Negative or not required by law. Electronically signed by: Stone Dhaliwal M.D. 12/14/2023 5:03 PM Ankle X-Ray 12/14/23 17:03 XR ankle LT 2V CLINICAL HISTORY: post splint placement x2 COMPARISON: Left ankle radiographs December 14, 2023 at 4:43 PM. FINDINGS: Status post reduction. Alignment of the distal left tibial and fibular fractures has significantly improved post reduction. Tibiotalar alignment has also markedly improved. Fine detail is diminished given overlying cast. IMPRESSION: Significant improvement in alignment of the left ankle post reduction. ACT 112: Negative or not required by law. Electronically signed by: Stone Dhaliwal M.D. 12/14/2023 5:30 PM Ankle X-Ray 12/15/23 00:00 FL ankle LT min 3V RTN CLINICAL HISTORY: Left ankle external fixation. COMPARISON STUDY: Left ankle radiographs November 14, 2023 at 5:00 PM. FLUOROSCOPY TIME: 52 seconds. EXPOSURE DOSE: 2.58 mGy FLUOROSCOPIC IMAGES: 6 FINDINGS: Fluoroscopy was provided during left ankle external fixation. Distal left fibular and tibial fracture alignment has improved. IMPRESSION: Fluoroscopy provided during left ankle external fixation. ACT 112: Negative or not required by law. Electronically signed by: Stone Dhaliwal M.D. 12/15/2023 9:[address] 12/15/23 09:23 CT ankle LT wo con CLINICAL HISTORY: pre op planning; please do today COMPARISON STUDY: Left ankle fluoroscopic images obtained earlier today. Left ankle radiograph November 14, 2023. TECHNIQUE: Axial images of the left ankle were obtained without IV contrast. Sagittal and coronal reconstructions were viewed. Automated exposure control was utilized for the study. A dose lowering technique was utilized adhering to the principles of ALARA. FINDINGS: External fixator device is in place. Alignment of the left trimalleolar fracture has significantly improved since prereduction radiographs. Tibiotalar joint is well aligned. An oblique distal diaphyseal left fibular fracture is displaced 4 mm. An oblique mildly displaced fracture the posterior distal left tibia is displaced 3 mm. There is an associated 4 mm intra-articular bone fragment. Talar dome is intact. There is no talar or calcaneal fracture. The medial malleolar fracture is displaced 9 mm. Left ankle soft tissue swelling is present. There is no soft tissue gas. No fractures are identified within the left midfoot. IMPRESSION: 1. Status post placement of an external fixator device for the left ankle trimalleolar fracture, as described above. Fracture alignment significantly improved since prereduction radiographs, as described above. Tibiotalar joint well aligned. 4 mm bone fragment, likely intra-articular, along the posterior tibial fracture. 2. Left ankle soft tissue swelling. No soft tissue gas. 3. No midfoot fractures identified. ACT 112: Negative or not required by law. Electronically signed by: Stone Dhaliwal M.D. 12/15/2023 10:36 AM Discharge Instructions Given to Patient (Per Discharging Provider) You have been hospitalized and found to have left ankle fracture. This was attempted to be reduced on admission but needed better alignment and were taken to the OR with Dr Pollock for surgical correction and pins to help get back into correct alignment and for healing and allow for swelling to go down before eventual definitive surgical correction which is going to be arranged in follow up. You will need to be non weight bearing as tolerated to the left leg and therapy evaluations were undertaken while in the hospital and recommend home health, which has been arranged. Your Plavix has been resumed post-op and per Dr Pollock, do not need additional medications for blood clot prevention. You can continue oral oxycodone for pain as well as Tylenol and please monitor for any constipation as pain medications can cause this and would recommend continuing a bowel regimen with Colace and miralax to prevent constipation while taking these medications. Vitamin D level was HIGH. We have STOPPED your supplementation as too much can cause elevated calcium levels which can cause weakness/fatigue/constipation as well as other symptoms and you should follow up discussions if needing restarted in the future possibly at a lower dose but would not continue at this time given levels. We did check B12 level given balance issues and while NOT LOW, is on the low end of normal and did send prescription for supplementation but usually is not covered by insurance and can buy this over the counter as well. Please follow up with orthopedics in the next 7-10 days days for routine check up/surgery planning. You should have follow up with primary care in the next 7-10 days after discharge to monitor your status after hospitalization. Please return to the ER with any increased pain, fever/chills, increased/uncontrolled bleeding, drainage or for any other symptoms concerning for you. It has been a pleasure being a part of the medical team providing for you while you have been in the hospital. Take care! Total Time Total Time Spent Total Time Spent (In Minutes): 40 Coding Level of Care Code 54805 INP/OBS DISCH >30 MIN Diagnoses Closed trimalleolar fracture of ankle S82.853A Essential hypertension I10 Hypertension type: essential hypertension Major depressive disorder, remission status unspecified, unspecified whether recurrent F32.9 Active/Remission status: remission status unspecified Depression Type: major depressive disorder Major depression recurrence: unspecified whether recurrent Hyperlipidemia, unspecified hyperlipidemia type E78.5 Hyperlipidemia type: unspecified
== END 2023-12-16 13:07 | disposition home health service (06) | DRG 563 ==
LOC: ED 15:43 → 3E 18:05 → SUATTDRO 18:05 → 3E 21:21

== ENCOUNTER 2024-09-03 07:20 | Observation (INO) ==
--- NOTE | 2024-08-06 10:22 | PAT Medication Instructions ---
Medication Instructions Date of Service August 06, 2024 Home Medications Medication Instructions Recorded clopidogrel 75 mg tablet 75 mg PO QAM 90 days #90 tabs 06/07/20 oxycodone 5 mg tablet 5 mg PO .q 4-6 PRN pain #20 tabs 12/26/23 coenzyme Q10 200 mg capsule (Co Q-10) 200 mg PO QAM escitalopram oxalate 20 mg tablet 20 mg PO QAM fluticasone propionate 50 mcg/actuation nasal spray,suspension (Flonase Allergy Relief) 1 spray intranasal QAM PRN glucosamine 375 pk-fcnuxajmj-yyd no1 500 mg-C 15 mg-jamar 0.5 mg tablet (Rjksusbtydu-Gsszmgnshdo-COT Complex) 1 tab PO QAM lisinopril 20 mg tablet 20 mg PO BID loratadine 10 mg tablet 10 mg PO QAM PRN meclizine 25 mg tablet 25 mg PO TID PRN multivitamin 1 tab PO QAM trazodone 50 mg tablet 50 mg PO HS verapamil 240 mg tablet,extended release 240 mg PO QAM clopidogrel 75 mg tablet 75 mg PO QAM fluoride (sodium) 1.1 % dental cream (Denta 5000 Plus) 1 applic PO HS tavaborole 5 % topical solution with applicator 1 applic topical DAILY acetaminophen 500 mg tablet (Tylenol Extra Strength) 1,000 mg PO TID PRN magnesium oxide 400 mg (241.3 mg magnesium) tablet 400 mg PO QAM oxycodone 5 mg tablet 5 mg PO .q 4-6 PRN cyanocobalamin (vitamin B-12) 1,000 mcg capsule 1,000 mcg PO Q OTHER DAY evolocumab 140 mg/mL subcutaneous pen injector (Repatha SureClick) 140 mg subcut UD ASK your prescriber and surgeon clopidogrel 75 mg tablet 75 mg PO QAM(in order for spinal or epidural anesthesia, Plavix needs to be stopped 7 days before surgery. Please check if okay with doctor that prescribes this to you) evolocumab 140 mg/mL subcutaneous pen injector (Repatha SureClick) 140 mg subcut UD STOP taking 2 weeks before surgery (or as soon as possible if surgery is within 2 weeks) coenzyme Q10 200 mg capsule (Co Q-10) 200 mg PO QAM glucosamine 375 we-jijzrblni-tvp no1 500 mg-C 15 mg-jamar 0.5 mg tablet (Cwyndxiywsr-Qcvlqaavjjd-BMN Complex) 1 tab PO QAM STOP taking 24 hours before surgery tavaborole 5 % topical solution with applicator 1 applic topical DAILY DO NOT take the morning of surgery lisinopril 20 mg tablet 20 mg PO BID loratadine 10 mg tablet 10 mg PO QAM PRN multivitamin 1 tab PO QAM magnesium oxide 400 mg (241.3 mg magnesium) tablet 400 mg PO QAM cyanocobalamin (vitamin B-12) 1,000 mcg capsule 1,000 mcg PO Q OTHER DAY Take morning of surgery With a small sip of water, OTHERWISE NOTHING TO EAT OR DRINK AFTER MIDNIGHT: escitalopram oxalate 20 mg tablet 20 mg PO QAM fluticasone propionate 50 mcg/actuation nasal spray,suspension (Flonase Allergy Relief) 1 spray intranasal QAM PRN(if needed) meclizine 25 mg tablet 25 mg PO TID PRN(if needed) verapamil 240 mg tablet,extended release 240 mg PO QAM acetaminophen 500 mg tablet (Tylenol Extra Strength) 1,000 mg PO TID PRN(if needed) oxycodone 5 mg tablet 5 mg PO .q 4-6 PRN(if needed) Take evening before surgery lisinopril 20 mg tablet 20 mg PO BID meclizine 25 mg tablet 25 mg PO TID PRN(if needed) trazodone 50 mg tablet 50 mg PO HS fluoride (sodium) 1.1 % dental cream (Denta 5000 Plus) 1 applic PO HS acetaminophen 500 mg tablet (Tylenol Extra Strength) 1,000 mg PO TID PRN(if needed) oxycodone 5 mg tablet 5 mg PO .q 4-6 PRN(if needed) Other Notes If you have any questions please call us at [phone] or [phone] or [phone] or [phone]
--- NOTE | 2024-08-14 10:35 | Anesthesiology Consultation ---
Date of Service August 14, 2024 Assessment & Plan (1) Encounter for pre-operative examination: Chart Review Chart Review: Acceptable Risk for Surgery (pending 08/11/24 EKG, cardio office visit 08/11/24, and upcoming PCP clearance ) and Patient seen in Pre Admission Testing - Please fax for 08/11/24 EKG (faxed for at PAT appt) and cardio office visit ([facility] -Johana SALAZAR) - Awaiting PCP clearance 08/20/24 (Dr Gerardo) - Sita is NOT an ideal OPJ candidate (currently 23 hour obs) Per PAT appt on 08/14/24, no recent illness/disease exposures, illness related symptoms, or recent illness/disease positive tests. Will leave to surgeon's discretion if preop Covid testing needed ORIF Left Ankle 12/26/23= Done under GA with LMA #4 Igel. History Surgery Operation Date: 09/03/24 09:10 Proposed Procedures p Left Total Knee Arthroplasty - Tho Granado MD Height/Weight Height: 5 ft 6 in Weight: 89.3 kg Allergies Allergy/AdvReac Type Severity Reaction Status Date / Time bee venom protein (honey bee) Allergy Mild swelling Verified 08/05/24 14:03 metoprolol Allergy Unknown Unknown Verified 08/05/24 14:03 simvastatin Allergy Unknown muscle Verified 08/05/24 14:03 weakness Qffkija-MFZ-FoF Reductase AdvReac Severe Muscle Verified 08/05/24 14:03 Inhibitor weakness, cramps rosuvastatin AdvReac Unknown MUSCLE Verified 08/05/24 14:03 WEAKNESS,CRAMPS Medications Home Medications Medication Instructions Recorded Confirmed Last Taken coenzyme Q10 200 mg capsule (Co 200 mg PO QAM 05/01/19 08/05/24 12/25/23 07:00 Q-10) escitalopram oxalate 20 mg tablet 20 mg PO QAM 05/01/19 08/05/24 12/25/23 07:00 fluticasone propionate 50 1 spray intranasal QAM PRN Allergy 05/01/19 08/05/24 05/01/19 mcg/actuation nasal Symptoms spray,suspension (Flonase Allergy Relief) glucosamine 375 pa-ovpoxoxtn-viu 1 tab PO QAM 05/01/19 08/05/24 12/24/23 07:00 no1 500 mg-C 15 mg-jamar 0.5 mg tablet (Pdwhhatdigp-Zsxqtvvpwzm-RUB Complex) lisinopril 20 mg tablet 20 mg PO BID 05/01/19 08/05/24 12/25/23 09:00 loratadine 10 mg tablet 10 mg PO QAM PRN Allergy Symptoms 05/01/19 08/05/24 12/25/23 07:00 meclizine 25 mg tablet 25 mg PO TID PRN Dizziness 05/01/19 08/05/24 05/01/19 multivitamin 1 tab PO QAM 05/01/19 08/05/24 12/25/23 07:00 trazodone 50 mg tablet 50 mg PO HS 05/01/19 08/05/24 12/25/23 21:00 verapamil 240 mg tablet,extended 240 mg PO QAM 05/01/19 08/05/24 12/26/23 04:45 release clopidogrel 75 mg tablet 75 mg PO QAM 90 days #90 tabs 06/07/20 08/05/24 12/23/23 07:00 fluoride (sodium) 1.1 % dental 1 applic PO HS 12/14/23 08/05/24 12/13/23 cream (Denta 5000 Plus) tavaborole 5 % topical solution 1 applic topical DAILY 12/14/23 08/05/24 12/14/23 with applicator acetaminophen 500 mg tablet 1,000 mg PO TID PRN Pain 12/23/23 08/05/24 12/25/23 21:00 (Tylenol Extra Strength) magnesium oxide 400 mg (241.3 mg 400 mg PO QAM 12/23/23 08/05/24 12/25/23 07:00 magnesium) tablet oxycodone 5 mg tablet 5 mg PO .q 4-6 PRN pain #20 tabs 12/26/23 08/05/24 Unknown cyanocobalamin (vitamin B-12) 1,000 mcg PO Q OTHER DAY 08/05/24 08/05/24 Unknown 1,000 mcg capsule evolocumab 140 mg/mL subcutaneous 140 mg subcut UD 08/05/24 08/05/24 Unknown pen injector (Veronica Correa) Past Medical History Medical History (Updated 08/14/24 @ 10:32 by Demi Smith PA-C) Chronic migraine without aura with status migrainosus, not intractable Chronic sinusitis no current issues Depression History of COVID-19 2022 - mild and resolved Hx of Clostridium difficile infection 2013 Hyperlipidemia Hypertension Irregular heart beat PVCs per cardio records TIA (transient ischemic attack) - 2019- lost ability to find her words to say --no further issues - on Plavix since "complex migraine episode in 2019" per cardio records Exercise / Class Metabolic Activity III < 4 Walking/Shop/Light housework (one flight of stairs - no chest pain or SOB - goes very slow due to knee pain ) Past Family History Family History Mother Diabetes Hypertension Cancer Past Surgical History Surgical History (Updated 08/05/24 @ 14:09 by Alyx Hickman RN) History of ankle surgery Left Ankle Open Reduction Internal Fixation Medial and Lateral Malleolus, Left Ankle Removal External Fixator(Left) History of cholecystectomy History of colonoscopy History of hernia repair History of hysterectomy History of tooth extraction Past Anesthesia History No Hx of Anesthesia Complications (with exception to PONV ) and No Family Hx of Anesthesia Complications History of PONV Other (chronic vertigo with neck movement ), History of PONV (improved with pre and fede anti nausea medication ) and Hx of Motion Sickness Social History Smoking Status: Never smoker Do You Dip or Chew Tobacco: No Hx Alcohol Use: Yes alcohol intake frequency: holidays/special occasions only Hx Substance Use: No substance use type: does not use Review of Systems - Chronic palpitations- x years- follows with cardiology- mild and stable Patient denies chest pain, shortness of breath, dyspnea on exertion, reflux, cough, wheezing No hx of seizures, [place], apnea/snoring. No hx of blood clots or blood transfusions Physical Exam Vital Signs VITALS BP 137/81 P 72 TEMP 97.8 SP02 97% RESP 16 Constitutional no acute distress ENMT Mouth: no TMJ clicking Thyromental Distance: > or= 3.5 Finger Breadths (3.5) Mallampati Class: II Crowns to side teeth and molars Neck + limited neck extension Respiratory normal respiratory effort; no respiratory distress Auscultation: lungs clear to auscultation bilaterally; no wheezes Cardiovascular Rate/Rhythm: regular rate and regular rhythm Heart Sounds: no murmur Vessels: no carotid bruit Occ missed beat Musculoskeletal Spine: no pain with cervical ROM Extremities: extremities normal to inspection Psychiatric Orientation: alert Lab Results Anesthesia Preop Results Results Anesthesia Widget: WBC 4.36 K/ul (4.8-10.8) L 08/14/24 Hgb 12.6 g/dl (12.0-16.0) 08/14/24 Hct 39.1 % (37.0-47.0) 08/14/24 Plt 204 K/uL (130-400) 08/14/24 Na 141 mmol/L (136-145) 08/14/24 K 4.2 mmol/L (3.5-5.1) 08/14/24 Cl 105 mmol/L (98-107) 08/14/24 CO2 31 mmol/L (21-32) 08/14/24 BUN 26 mg/dl (6-23) H 08/14/24 Creat 0.65 mg/dl (0.6-1.2) 08/14/24 Glucose Level 70 mg/dl (70-99(Fasting)) 08/14/24 PT 9.9 Seconds (9.0-12.0) 08/14/24 PTT 26 Seconds (21-31) 08/14/24 INR 0.9 (0.9-1.1) 08/14/24 HA1c 5.3 % (4.5-5.6) 08/14/24 Urine Color Yellow 08/14/24 Urine Appearance Clear (Clear) 08/14/24 Urine pH 5.5 (4.5-7.5) 08/14/24 Urine Specific [place] 1.022 (1.000-1.030) 08/14/24 Urine Protein Negative (Negative) 08/14/24 Urine Glucose (UA) Negative (Negative) 08/14/24 Urine Ketones Negative (Negative) 08/14/24 Urine Blood Negative (Negative) 08/14/24 Urine Nitrite Negative (Negative) 08/14/24 Urine Bilirubin Negative (Negative) 08/14/24 Urine Urobilinogen Negative (Negative) 08/14/24 Urine Leukocyte Esterase Negative (Negative) 08/14/24 Blood Type O Positive 08/14/24 Antibody Screen NEGATIVE 08/14/24 Testing Other Testing Brain MRI 05/01/19= No acute intracranial abnormality, specifically there is no evidence of acute or subacute infarct. No abnormal enhancement. Moderate to extensive T2/FLAIR hyperintensities throughout the white matter are suggestive of probable chronic microvascular ischemic disease. Neck CTA 05/01/19= No evidence of hemodynamically significant carotid or vertebral artery stenosis. No evidence of dissection. Head CTA 05/01/19= No acute intracranial abnormality. No significant stenosis, occlusion, or aneurysm within the chilkat of S[place].
[~2024-09-03 07:20] MED LIST changes: -ASPI325T4 PO; +BUPIVACAINE 0.25% PF 30 ML VIAL ONE; +BUPIVACAINE 0.5 % 5 MG/1 ML PF 10ML VIAL ONE; -CHOL2000 PO; -COEN100C11 PO; -CRS5 PO; -ESCI1TAB10 PO; -GLUC1CAP35 PO; -LISI-725 PO; -MELO15TA4 PO; -TRAZ50TA35 PO; -VERA180T10 PO
[2024-09-03] MEDS ORDERED: fentaNYL citrate PF 100 MCG/2 ML VIAL ONE (07:39)
[2024-09-03] MEDS ORDERED: MIDAZOLAM HCL 1 MG/ML 2ML VIAL ONE (07:39)
[2024-09-03] MEDS ORDERED: PROPOFOL IV EMULSION 10 MG/ML 20 ML VIAL IV ONE ×3 (07:48→10:55)
[2024-09-03] MEDS ORDERED: LIDOCAINE 2% 2 ML VIAL/AMP(20MG/ML) INFIL ONE (07:48)
[2024-09-03] MEDS: LR 60ML/HR IV SCH (08:06)
[2024-09-03] MEDS: LR 500ML BOLUS, THEN 15ML/HR IV SCH (08:10)
[2024-09-03] MEDS: traMADol HCL 50 MG TABLET PO SCH (08:16)
[2024-09-03] MEDS: Scopolamine 1 MG TDSY TD SCH (08:16)
[2024-09-03] MEDS: CeleBREX 200 MG CAP PO SCH (08:16)
[2024-09-03] MEDS: FAMOTIDINE 20 MG TAB PO SCH (08:16)
[2024-09-03] MEDS: dexAMETHasone**PF** 10 MG/ML VIAL IV SCH (08:17)
--- NOTE | 2024-09-03 08:43 | History & Physical Bridge Note ---
Date of Service September 03, 2024 History & Physical Bridge Note I have examined the patient, reviewed the History & Physical and in the interval since the performance of the History & Physical I have noted the following changes of clinical significance: no changes noted
[2024-09-03] MEDS ORDERED: ONDANSETRON INJ 2 MG/ML 2 ML VIAL IV PRN ×2 (08:57→11:26)
[2024-09-03] MEDS ORDERED: fentaNYL citrate PF 100 MCG/2 ML VIAL IV PRN (08:57)
[2024-09-03] MEDS ORDERED: ePHEDrine sulfate 50 MG/ML AMP IV PRN (08:57)
[2024-09-03] MEDS ORDERED: ATROPINE SULFATE 0.1 MG/ML 10ML SYR IV PRN (08:57)
[2024-09-03] MEDS: TRANEXAMIC ACID 1,000 MG **IV Pre-op IV SCH (09:00)
[2024-09-03] MEDS: ACETAMINOPHEN 500 MG TAB PO SCH ×2 (09:17→13:36)
[2024-09-03] MEDS: ceFAZolin 2000MG 2,000 MG/15 ML SYR IV SCH ×2 (09:19→17:35)
[2024-09-03] MEDS: ROPIV 0.5% 246mg, Ketorolac 30mg, EPINEPHrine 0.5mg in NSS INFIL SCH (09:45)
[2024-09-03] MEDS: ORTHO JOINT ANESTHETIC ONE (09:45)
[2024-09-03] MEDS ORDERED: NITROGLYCERIN/D5W 100 MCG/ML BTL ONE (09:48)
[2024-09-03] MEDS: TRANEXAMIC ACID 1,000 MG **IV Intra-op IV SCH (10:45)
--- NOTE | 2024-09-03 11:14 | Operative Report ---
Post Operative Report Pre & Post Diagnosis Operation Date: 09/03/24 09:10 Pre-Op Diagnosis: Left Knee Osteoarthritis Post-Op Diagnosis: Left Knee Osteoarthritis I identified the patient and participated in the time-out.: Yes Procedure Operation Date: 09/03/24 09:10 Actual Procedures p Left Total Knee Arthroplasty, Cemented(Left) - Tho Granado MD Surgeon Tho Granado MD Box Truck Owner Operator Elbert Mason DO and KAROLINA Deng PA-C. Estimated Blood Loss 50 Findings Consistent with Post-Op Diagnosis Specimens Left knee bone and soft tissue contents Anesthesia Type General Regional Complications none Disposition Disposition: Recovery Room Indications 74-year-old female, with left knee osteoarthritis refractory to conservative management. X-rays demonstrate valgus malalignment, [id number] arthritis in the lateral compartment of the knee and tricompartmental osteophyte formation. I had a long discussion with her about her diagnosis and treatment options. Surgery is indicated to improve her pain and function. After reviewing the risks and benefits of surgery, alternatives to surgery, and expected outcomes she elected to proceed. All questions were answered. Informed consent was signed. Description of Procedure Patient was identified in the preoperative holding area where the surgical site, left knee, was marked. Spinal anesthetic was placed by anesthesia. Patient was brought back to the operating room, placed on the operating room table, and IV sedation was administered. A bump was placed underneath the ipsilateral hip. All bony prominences were padded. Perioperative antibiotics and tranexamic acid were administered. Exam under anesthesia was performed. This demonstrated range of motion from 0 to 105 degrees. Valgus malalignment. Stable to varus and valgus stress at 30 degrees. The surgical site was prepped and draped in the normal sterile fashion. Prior to incision a multidisciplinary timeout was called. All in the room were in agreement. We began by exsanguinating the limb with an Esmarch bandage. Tourniquet was inflated to 250 mmHg. A 14 cm long incision was made over the anterior aspect of the knee. I dissected through the subcutaneous tissues to the level of the fascia. Full-thickness flaps were raised above the fascia. A median parapatellar arthrotomy was made. Half the fat pad was excised. A medial release was performed with Bovie electrocautery on the proximal tibia. Synovitis in the knee and suprapatellar pouch was removed. The patella was then everted and held with 2 towel clips. 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 The thickness of the patella was measured at 19 mm. Patellar resection was performed. Caliper showed the patella thickness now to be 14 mm. A size 38 trial was placed and had a great fit. The 3 drill holes were placed then the trial button was placed. The patellar thickness was now 24 mm which I was very happy with. The patellar trial was then removed, and the knee was flexed up. Inspection of the tibia and femur revealed diffuse osteophytes along the synovial reflection of the femur and the tibia. She had eburnation of the bone in the lateral tibial plateau and lateral femoral condyle. Retractors were placed to protect the MCL and LCL. Osteophytes were removed from the femoral condyles and intercondylar notch. The ACL and PCL were excised. Intramedullary drill guide was drilled into the femur. Distal femoral cutting guide was placed set at 5 degrees of valgus to resect 10 mm off the distal femur. Distal femoral resection was made without difficulty. The tibia was then exposed. The lateral meniscus was sharply excised. The tibial cutting jig was positioned in line with the tibial shaft in the coronal plane and with 3 degrees of posterior slope in the sagittal plane to resect 6 mm off the less involved compartment. The jig was then pinned in position and the tibial cut was made. We then brought the knee into full extension. Lamina spreaders were placed. The medial meniscus was excised. The extension block was then placed for 6 mm thickness poly. This gave us full extension and excellent stability to varus and valgus stress. Next the extension block was removed, the knee was flexed up, collateral ligaments were protected, and the epicondylar axis and Whitesides line were marked out on the distal femoral cut. Femoral sizing guide was placed. External rotation was set at 3 degrees so that the posterior cut would be parallel with the epicondylar axis and perpendicular with Whitesides line. The patient sized to a size 4 femur. 2 pins were then placed through the jig into the distal femur. The jig was removed and the appropriately sized 4-in-1 cutting jig was placed over the pins, then fixated to the bone using threaded, headed pins. We confirmed that we would not notch the femur with our anterior cut. Our 4 cuts were then made. The cutting jig was removed. The flexion block was then placed with the knee held at 90 degrees. There was excellent stability to varus and valgus at 90 degrees with no gapping medially or laterally. Next the box cutting jig was placed on the distal femur. The box cut was made and the femoral trial was impacted into position. Lug holes were drilled in the distal femur. We then reexposed the tibia. The tibia was sized to a 4 for a fixed bearing component and pinned in external rotation on the cut tibial surface. The intramedullary drill followed by the keel punch were used to prepare the tibia. The tibial tray with a 6 mm thickness polyethylene liner was placed and the knee was brought through a full range of motion. There was excellent stability to varus valgus stress throughout a full range of motion, which was approximately 0-125 degrees. Next the trial components were removed. I then injected the posterior capsule and periosteum with the periarticular injection cocktail. The bone cuts were then irrigated and dried while the cement was mixed on the back table. The femoral component was cemented on first. Excess cement was removed. A lap sponge was placed over the femoral component for protection, then the tibia was subluxated anteriorly. The all polyethylene tibial component was then cemented in place. Again excess cement was removed. The knee was brought into full extension and held there until the cement cured. The patella was cemented and clamped. Dilute Betadine solution was then allowed to soak in the knee while the cement cured. Once the cement was fully cured, the knee was irrigated out, the tourniquet was let down and meticulous hemostasis was ensured. The knee was brought through a full range of motion. I was were very happy with the patella tracking and the stability. We then began to close. Interrupted 0 Vicryl suture was used to repair the patellar retinaculum in [id number] fashion. The quadriceps and patellar tendons were run with #1 Vicryl. The deep dermal layer was closed with interrupted 2-0 Vicryl. Dermabond and Zipline was used for the skin, followed by a Silverlon dressing. A compressive Obdulio wrap was placed and the knee was placed into a knee immobilizer. Patient's sedation was lifted and was transferred to recovery room in stable condition. Summary of implants: Depuy Attune Posterior Stabilized Cemented Femur, size 4 left Attune All-polyethylene tibial component, posterior stabilized 6 mm thickness, size 4 Attune patella medialized dome, size 38 2 batches of Palacos bone cement Postoperative course: Patient will be admitted to the floor for pain control and monitoring. Weightbearing as tolerated with a walker with no knee range of motion for 48 hours. Resume Plavix tomorrow for DVT prophylaxis. I attest to the content of the Intraoperative Record and any orders documented therein. Any exceptions are noted below.
--- NOTE | 2024-09-03 11:17 | Operative Report ---
Post Operative Report Pre & Post Diagnosis Operation Date: 09/03/24 09:10 Pre-Op Diagnosis: Left Knee Osteoarthritis Post-Op Diagnosis: Left Knee Osteoarthritis I identified the patient and participated in the time-out.: Yes Procedure Operation Date: 09/03/24 09:10 Actual Procedures p Left Total Knee Arthroplasty, Cemented(Left) - Tho Granado MD Surgeon Tho Granado MD Push Bench Operator Helper Elbert Mason DO and KAROLINA Deng PA-C. Estimated Blood Loss 50 Findings Consistent with Post-Op Diagnosis Specimens Left knee bone Description of Procedure Patient was 07 anesthesia. Left lower extremities prepped and draped in usual sterile fashion. Surgical timeout was performed. Patient underwent a left total knee arthroplasty. Please see Dr. Granado's operative report for full details. I was present and assisted patient positioning, excision, soft tissue traction, hardware placement, wound closure, postoperative dressing placement. Patient was awakened taken to the recovery room in stable condition. I attest to the content of the Intraoperative Record and any orders documented therein. Any exceptions are noted below.
--- NOTE | 2024-09-03 11:22 | Operative Report ---
Post Operative Report Pre & Post Diagnosis Operation Date: 09/03/24 09:10 Pre-Op Diagnosis: Left Knee Osteoarthritis Post-Op Diagnosis: Left Knee Osteoarthritis I identified the patient and participated in the time-out.: Yes Procedure Operation Date: 09/03/24 09:10 Actual Procedures p Left Total Knee Arthroplasty, Cemented(Left) - Tho Granado MD Surgeon Tho Granado MD Educational Audiologist Elbert Mason DO and KAROLINA Deng PA-C. Estimated Blood Loss 50 Findings Consistent with Post-Op Diagnosis Specimens left knee bone and soft tissue Description of Procedure I was present for the entire procedure assisting with positioning, prepping, draping, wound retraction, wound closure, dressing and immobilizer placement. Fellow also present. I served as an extra set of hands during the case. Please see Dr. Granado procedure note for specifics of the case. I attest to the content of the Intraoperative Record and any orders documented therein. Any exceptions are noted below.
[2024-09-03] MEDS ORDERED: MAGNESIUM HYDROXIDE SUSP 30 ML UDC PO PRN (11:26)
[2024-09-03] MEDS ORDERED: NALOXONE HCL 0.4 MG/1 ML VIAL/CARP IV PRN (11:26)
[2024-09-03] MEDS ORDERED: METOCLOPRAMIDE HCL INJ 5 MG/ML 2 ML VIAL IV PRN (11:26)
[2024-09-03] MEDS ORDERED: bisacodyL 10 MG SUPP PR PRN (11:26)
[2024-09-03] MEDS ORDERED: oxyCODONE HCL IR 5 MG TAB (IMMEDIATE RELEASE) PO PRN ×2 (11:26→13:07)
[2024-09-03] MEDS ORDERED: ALUMINUM/MAGNESIUM SUSP 30 ML UDC PO PRN (11:26)
[2024-09-03] MEDS ORDERED: diphenhydrAMINE 50 MG/ML VIAL IV PRN (11:26)
[2024-09-03] MEDS ORDERED: HYDROmorphone INJ 0.5 MG/0.5 ML SYR IV PRN (11:26)
--- NOTE | 2024-09-03 12:10 | XRay Report ---
XR knee LT 1 or 2V routine CLINICAL HISTORY: Surgical Post Op COMPARISON: 08/14/2024 FINDINGS: Right knee prosthesis shows no hardware complication. There is expected soft tissue gas. IMPRESSION: Unremarkable postoperative exam. ACT 112: Negative or not required by law. Electronically signed by: Kishan Solis M.D. 09/03/2024 12:09 PM
[2024-09-03] MEDS ORDERED: NON-FORMULARY MEDICATION (Evolocumab [Repatha Sureclick] 140 mg/mL Pen Injector) SQ SCH (13:07)
[2024-09-03] MEDS ORDERED: MECLIZINE HCL 25 MG TAB PO PRN (13:07)
[2024-09-03] MEDS ORDERED: ACETAMINOPHEN 500 MG TAB PO PRN (13:07)
[2024-09-03] MEDS ORDERED: FLUTICASONE PROPIONATE NA SPR 16 GM BTL NAE PRN (13:07)
[2024-09-03] MEDS: SODIUM CHLORIDE 0.9% 1,000 ML IV SCH (13:15)
[2024-09-03] MEDS: KETOROLAC TROMETHAMINE 15 MG/ML VIAL IV SCH (13:37)
[2024-09-03] MEDS: CYANOCOBALAMIN (B-12) 500 MCG TABLET PO SCH (13:39)
[2024-09-03] MEDS: Scopolamine CHECK PATCH PLACEMENT SCH (13:42)
--- NOTE | 2024-09-03 13:43 | Anesthesiology Progress Note ---
Date of Service September 03, 2024 Anesthesia Post Procedure Vital Signs Vital Signs: Temp Pulse Pulse Resp BP Pulse Ox O2 Del Method 09/03/24 13:32 64 16 153/82 H 96 Room Air 09/03/24 13:05 97.7 F 60 18 148/78 H 94 Room Air 09/03/24 12:50 59 L 20 134/78 93 Room Air 09/03/24 12:40 60 16 141/71 H 92 Room Air 09/03/24 12:30 97.3 F L 60 15 133/74 93 Room Air 09/03/24 12:20 58 L 19 133/74 93 Room Air 09/03/24 12:10 59 L 16 133/73 93 Room Air 09/03/24 12:00 58 L 15 137/77 92 Room Air 09/03/24 11:50 61 21 131/65 94 Room Air 09/03/24 11:40 64 22 139/68 95 Room Air 09/03/24 11:30 63 20 124/68 95 Room Air 09/03/24 11:20 73 19 125/62 95 Room Air 09/03/24 11:19 97.0 F L 76 16 123/61 95 Room Air 09/03/24 07:52 97.9 F 68 20 168/102 H 96 Room Air Pain Intensity Left Knee: Pain Intensity: 2 Transfer of Care Handoff Completed per policy Notes Mental Status: alert / awake / arousable and participated in evaluation Patient Amnestic to Procedure: Yes Nausea / Vomiting: adequately controlled Pain: adequately controlled Airway Patency, RR, SpO2: stable & adequate BP & HR: stable & adequate Hydration State: stable & adequate Anesthetic Complications: no major complications apparent and Pt Satisfied with anesthetic care
[2024-09-03] MEDS: traMADol HCL 50 MG TABLET PO PRN (15:22)
[2024-09-03] MEDS: traZODone HCL 50 MG TAB PO SCH (20:40)
[2024-09-03] MEDS: DOCUSATE SODIUM 100 MG CAP PO SCH (20:41)
[2024-09-03] MEDS: SENNA 8.6 MG TAB PO SCH (20:41)
[2024-09-03] MEDS: lisinopril 20 MG TAB PO SCH (20:41)
[2024-09-03] MEDS ORDERED: CeleBREX 200 MG CAP PO SCH (21:00)
[2024-09-03] MEDS ORDERED: NON-FORMULARY MEDICATION (Fluoride (Sodium) [Denta 5000 Plus] 1.1 % cream) PO SCH (21:00)
[2024-09-04 03:44] VITALS: RESP 16
[2024-09-04 06:37] LABS: Hematocrit (blood only) 33.7 % (37.0-47.0); Mean Corpuscular Hemoglobin 30.1 pg (25.0-34.0); Mean Corpuscular Hgb Conc 32.6 g/dL (32.0-36.0); Mean Corpuscular Volume 92.3 fL (80.0-100.0); Mean Platelet Volume 10.4 fL (9.4-12.4); Platelet Count 184 K/uL (130-400); RDW Coefficient of Variation 12.5 % (11.5-14.5); RDW Standard Deviation 42.5 fL (36.4-46.3); Red Blood Count 3.65 M/uL (4.20-5.40); White Blood Count 11.59 K/ul (4.8-10.8)
[2024-09-04 07:01] LABS: BUN Creatinine Ratio 40.2 (10-20); Calcium 9.3 mg/dl (8.6-10.3); Creatinine Clr Calc Pharmacy 61.7 ml/min; Potassium 4.2 mmol/L (3.5-5.1)
[2024-09-04 07:33] VITALS: BP 153/79; PULSE 69; TEMP 98.4; O2SAT 98
[2024-09-04] MEDS: CLOPIDOGREL BISULFATE 75 MG TAB PO SCH (08:00)
[2024-09-04] MEDS: dexAMETHasone 10 MG in SYRINGE 0 ML IV SCH (08:00)
[2024-09-04] MEDS: GLUCOSAMINE SULFATE 500 MG CAP PO SCH (08:00)
[2024-09-04] MEDS: MULTIVITAMIN TAB PO SCH (08:00)
[2024-09-04] MEDS: LORATADINE 10 MG TAB PO PRN (08:00)
[2024-09-04] MEDS: VERAPAMIL HCL 240 MG TABCR PO SCH (08:00)
[2024-09-04] MEDS: MAGNESIUM OXIDE 400 MG TAB PO SCH (08:01)
[2024-09-04] MEDS: ESCITALOPRAM OXALATE 20 MG TAB PO SCH (08:01)
[2024-09-04] MEDS: KETOROLAC TROMETHAMINE 15 MG/ML VIAL IV SCH (08:16)
[2024-09-04] MEDS ORDERED: NON-FORMULARY MEDICATION (Multivitamin Tablet) PO SCH (09:00)
[2024-09-04] MEDS ORDERED: NON-FORMULARY MEDICATION (Coenzyme Q10 [Co Q-10] 200 mg Capsule) PO SCH (09:00)
--- NOTE | 2024-09-04 09:58 | Orthopedic Progress Note ---
Date of Service September 04, 2024 Assessment & Plan (1) S/P total knee arthroplasty: Plan: POD1 s/p total knee arthroplasty WBAT with walker PT/OT Diet - regular Frequently ice and elevate with blankets stacked under ankle DVT prophylaxis: Resume Plavix and Aspirin, TEDS x 3 weeks Pain control: Tylenol 1000mg q 8hrs, celebrex 200mg BID x 2 weeks, oxycodone 5- 10mg q4-6 hrs for moderate pain Dressing: Silverlon dressing can leave in-tact until f/u Discharge home with home health x 2 weeks Follow up as scheduled with [facility] in 2 weeks Admission and Anticipated Discharge Date Admission Date: September 03, 2024 Subjective Pt was seen and examined bedside. POD #1 s/p LTKA. Pt was admitted last night for observation. No major events over night. Vitals are stable. Labs unremarkable. X-rays show normal post operative changed. Pt reports they are doing well and pain is controlled. They are tolerating PO intake and voiding chrystal quate amounts. Working well with PT/OT. Pt denies F/C, N/V/D, SOB, CP. Pt deemed medically stable and ready for discharge. Physical Exam Physical Exam: General: Pt laying in hospital bed AA&O, in NAD, calm and cooperative during exam Lower Extremity: Dressing in tact and not saturated. Silverlon left in place. Incisions clean, dry and with minimal drainage and no surrounding erythema, warmth or purulent drainage. Pt has full ROM of ankle and all 5 digits. Pt has 5/5 strength with resisted DF/PF. SLR in tact. ROM 0 - 90. Calf supple and non tender. NVI with sensation to light touch distally and good distal pulses present. Results & Data Vital Signs (Past 12 Hours) Vital Signs Temp Pulse Resp BP Pulse Ox O2 Del Method 09/04/24 07:32 36.9 C 69 16 153/79 H 98 Room Air 09/04/24 03:43 36.7 C 73 16 128/77 96 Room Air 09/03/24 23:36 36.5 C 63 18 145/83 H 93 Room Air Laboratory Results 09/04/24 Range/Units 05:52 WBC 11.59 H (4.8-10.8) K/ul RBC 3.65 L (4.20-5.40) M/uL Hgb 11.0 L (12.0-16.0) g/dl Hct 33.7 L (37.0-47.0) % MCV 92.3 (80.0-100.0) fL MCH 30.1 (25.0-34.0) pg MCHC 32.6 (32.0-36.0) g/dL RDW Std Deviation 42.5 (36.4-46.3) fL RDW Coeff of Jaskaran 12.5 (11.5-14.5) % Plt Count 184 (130-400) K/uL MPV 10.4 (9.4-12.4) fL Sodium 137 (136-145) mmol/L Potassium 4.2 (3.5-5.1) mmol/L Chloride 105 (98-107) mmol/L Carbon Dioxide 25 (21-32) mmol/L Anion Gap 7 (3-11) BUN 35 H (6-23) mg/dl Creatinine 0.87 (0.6-1.2) mg/dl Est Cr Clr Drug Dosing 61.7 ml/min eGFR 69.01 BUN/Creatinine Ratio 40.2 H (10-20) Glucose 118 H (70-99(Fasting)) mg/dl Calcium 9.3 (8.6-10.3) mg/dl
[2024-09-04] MEDS: ASPIRIN 81 MG ECTAB PO SCH (10:54)
--- NOTE | 2024-09-04 12:42 | Discharge Summary ---
Date of Service September 04, 2024 Admission HPI Per Admitting Provider Pt was seen and examined bedside. POD #1 s/p left total knee arthroplasty. Pt was admitted last night for observation. No major events over night. Vitals are stable. Labs unremarkable. X-rays show normal post operative changed. Pt reports they are doing well and pain is controlled. They are tolerating PO intake and voiding adequate amounts. Working well with PT/OT. Pt denies F/C, N/V/D, SOB, CP. Pt deemed medically stable and ready for discharge. Principal Diagnosis POD #1 s/p left total knee arthroplasty Discharge Exam General: Pt laying in hospital bed AA&O, in NAD, calm and cooperative during exam Lower Extremity: Dressing in tact and not saturated. Silverlon left in place. Incisions clean, dry and with minimal drainage and no surrounding erythema, warmth or purulent drainage. Pt has full ROM of ankle and all 5 digits. Pt has 5/5 strength with resisted DF/PF. SLR in tact. ROM 0 - 90. Calf supple and non tender. NVI with sensation to light touch distally and good distal pulses present. Discharge Data Allergies Allergy/AdvReac Type Severity Reaction Status Date / Time simvastatin Allergy Severe muscle Verified 09/03/24 07:39 weakness bee venom protein (honey bee) Allergy Mild swelling Verified 09/03/24 07:39 metoprolol Allergy Unknown Unknown Verified 09/03/24 07:39 rosuvastatin AdvReac Severe MUSCLE Verified 09/03/24 07:39 WEAKNESS,CRAMPS [id number] Reductase AdvReac Severe Muscle Verified 09/03/24 07:39 Inhibitor weakness, cramps Procedures Performed Operation Date: 09/03/24 09:10 Actual Procedures p Left Total Knee Arthroplasty, Cemented(Left) - Tho Granado MD Ordered Studies 09/03/24 05:00 US - OR guided needle placemen Routine Hospital Course (1) S/P total knee arthroplasty: POD1 s/p total knee arthroplasty WBAT with walker PT/OT Diet - regular Frequently ice and elevate with blankets stacked under ankle DVT prophylaxis: Resume Plavix and Aspirin, TEDS x 3 weeks Pain control: Tylenol 1000mg q 8hrs, celebrex 200mg BID x 2 weeks, oxycodone 5-10mg q4-6 hrs for moderate pain Dressing: Silverlon dressing can leave in-tact until f/u Discharge home with home health x 2 weeks Follow up as scheduled with [facility] in 2 weeks Total Time Total Time Spent Total Time Spent (In Minutes): 45 minutes Discharge Plan Discharge Items Patient Disposition: Home - Home Health Services Reason For Visit: Left Knee Osteoarthritis Discharge Diagnosis: s/p left total knee arthroplasty Activity: As commented below Lifting: None Bathing: Keep incision dry Bathing Comment: May shower tomorrow Sexual Activity: Wait until after follow-up appointment Exercise/Sports: Wait until after follow-up appointment Driving/Machine Use: No driving until cleared by activities specialist Weightbearing: Left weightbearing Weightbearing Comment: as tolerated with walker and immobilizer x 48 hrs Non-emergency contact: Surgeon Call non-emergency contact if: you have any medication questions, your pain is not controlled, your temperature is above 101.5, your wound has increased drainage and your wound pain has increased Follow-up/Referrals: Robert Gerardo MD [Primary Care Provider] - Diet: Regular Addtl Attending Provider Instructions: Post-operative Instructions Dear Patient and Family/Friends, Before you are discharged from the hospital, it is important to know what to expect when you get home after surgery. To that end, we have created this sheet of discharge instructions which covers many commonly asked questions. Make sure you go through this sheet in its entirety with your nurse before you are discharged. Please note that we will go over the specifics of your surgery and recovery when you return for your first post-operative visit. Sincerely, Dr. Granado Medications 1. Oxycodone 5 mg: take 1-2 tabs every 4-6 hours as needed for post operative pain control. A prescription will be sent to your pharmacy. 2. Celebrex 100 mg: take 1 tab twice daily for 30 days post operatively for pain and inflammation relief. This will be sent to your pharmacy with 1 refill. 3. Aspirin 81 mg: take 1 tablet twice daily for 30 days post operatively for blood clot prevention. Please purchase. I is safe to take this with your prescription Plavix. 4. Extra Strength Tylenol 500 mg: resume your normal regimen of this medication. Pain Expect to be in a fair amount of pain after surgery. Remember, our goal is not to eliminate your pain, but to make it tolerable. It is a good idea to stay ahead of your pain by taking the medications you were prescribed once you get home. Typically, the pain starts improving 3-7 days after surgery. You should start weaning off the narcotic pain medication (oxycodone, hydrocodone, hydromorphone, morphine) as soon as your pain improves. Please call our office if your pain is not adequately controlled. Ice Ice your operative site at least 5 times a day for 15-30 minutes at a time. Make sure you have a thin cloth between the ice or cooling unit and your skin to prevent berry bite. This is especially important if you received a nerve block. Continue icing your operative site for the first 5-7 days after surgery, then as needed. Diet/Nausea/Vomiting Start by drinking clear liquids and eating crackers. If you can tolerate this, then you may resume your normal diet. If you feel nauseated or vomit, take Zofran/ondansetron (if prescribed). Please call our office if you have intractable nausea or vomiting, or, if after hours, you may go to the Emergency Room for help. Constipation Constipation is a common side effect of narcotic pain medication. If you have not had a bowel movement within 2 days after surgery, we recommend purchasing an over the counter laxative such as Milk of Magnesia, Dulcolax, or Miralax from a local pharmacy, and taking it as instructed. Call our clinic if any questions. Nerve block The anesthesia team sometimes places a nerve block to help with post-operative pain control. This results in significant numbness and inability to move the extremity. The nerve block usually wears off in 8-12 hours, but sometimes can last up to 24 hours. Please call our office if you are still unable to move your extremity after 24 hours, unless you received a pain pump to take home. Nerve blocks typically wear off quickly, so start taking pain medication as soon as you start feeling soreness near your surgical site. Weight bearing and Range of Motion. Do not bear any weight through your operative extremity immediately after surgery. If you had upper extremity surgery, do not lift anything with that arm. If you are in a knee brace, keep it locked in place until your follow-up. We will discuss your weight bearing, range of motion, and lifting restrictions in detail at your first post-operative appointment. Continuous Passive Motion (CPM) Machine If you were prescribed a CPM machine, it will start after your first post- operative appointment, at which time we will give you instructions on the range of motion settings and duration of treatment Physical therapy You will be given a prescription for physical therapy or occupational therapy at your first post-operative appointment. Typically, patients start therapy within 1 week of surgery Wound care and showering We will inspect your wound at your first post-operative visit, and may do a dressing change at that time. Most patients will be in a water-proof dressing that is removed 14 days after surgery. It is normal to see some dried blood on the dressing. Do not remove your dressing, paper strips or sutures yourself unless you are given permission. Showering is allowed the day after surgery. Do not scrub or remove any dressings. The wound should not be submerged underwater (i.e. in a bathtub or pool) until 4 weeks after surgery LIANA stockings If you were given white stockings, these are to be worn at all times except to shower (on both legs) for the first 2 weeks after surgery. Driving You may not drive while taking narcotic pain medication or while in a cast, splint, sling or brace. You, the patient, need to make the final determination about when you are safe to drive, however, the earliest you may consider driving after surgery is below: Hand/Wrist/Elbow Surgery: 3 days Shoulder Surgery: 2 weeks Hip,/Knee/Ankle Surgery: 4 weeks Fracture repair: 6 weeks Return to Work Your return to work depends on what surgery was done and what type of work you do. Please bring any paperwork your employer needs completed to your first post-operative visit. Also, bring a description of your job duties, as this helps us to understand what risks you may face at work. Travel Avoid long distance travel (greater than 1 hour) in airplanes and cars for the first 6 weeks after surgery. If you must travel, you need to have a Doppler ultrasound done before you travel to rule out a blood clot in your legs. Follow-up You should have a follow-up appointment already scheduled 1-2 days after surgery. If not, please contact our office to make this appointment before you leave the hospital. When to call the office It is normal to have swelling and bruising in the limb that was operated on. This will improve with time. It is also normal to have fevers for the first 2 days after surgery. Reasons you should call your doctor include: Uncontrolled pain; Nausea, vomiting, or constipation that does not improve with medication; Fevers over 101.5, chills, sweats; Drainage or bleeding from the wound; Foul odor; Spreading areas of redness; Any other concerns. Contact Information Please call Dr. Granado's office at [phone] with any concerns. Pending Studies at Discharge: No Stand-Alone Forms: My [facility] Medications and DC Order Prescriptions: New aspirin 81 mg Tablet,Delayed Release (Dr/Ec) 81 mg PO BID 30 Days Qty: 60 0RF celecoxib 100 mg capsule 100 mg PO BID 30 Days Qty: 60 1RF oxycodone 5 mg Tablet 5 - 10 mg PO Q4H MDD Max 6/day PRN (Reason: Post op pain control) Qty: 28 0RF Continued clopidogrel 75 mg tablet 75 mg PO QAM 90 Days Qty: 90 3RF multivitamin Tablet 1 tab PO QAM trazodone 50 mg Tablet 50 mg PO HS lisinopril 20 mg tablet 20 mg PO BID meclizine 25 mg Tablet 25 mg PO TID PRN (Reason: Dizziness) verapamil 240 mg Tablet Extended Release 240 mg PO QAM fluticasone propionate [Flonase Allergy Relief] 50 mcg/actuation Jackson,Suspension 1 spray INTRANASAL QAM PRN (Reason: Allergy Symptoms) loratadine [Claritin] 10 mg Tablet 10 mg PO QAM PRN (Reason: Allergy Symptoms) escitalopram oxalate [Lexapro] 20 mg Tablet 20 mg PO QAM coenzyme Q10 [Co Q-10] 200 mg Capsule 200 mg PO QAM Mhriyztvzwj-Oulqs-BJN Complex 395-295-71-0.5 mg Tablet 1 tab PO QAM acetaminophen [Tylenol Extra Strength] 500 mg tablet 1,000 mg PO TID PRN (Reason: Pain) magnesium oxide 400 mg (241.3 mg magnesium) tablet 400 mg PO QAM oxycodone 5 mg tablet 5 mg PO .q 4-6 PRN (Reason: pain) Qty: 20 0RF Patient Comments: finished with this 08/05/24 fluoride (sodium) [Denta 5000 Plus] 1.1 % cream 1 applic PO HS tavaborole 5 % solution with applicator 1 applic TOPICAL DAILY Rx Instructions: uses for toe nails Repatha SureClick 140 mg/mL Pen Injector 140 mg SUBCUT UD Rx Instructions: every other week cyanocobalamin (vitamin B-12) 1,000 mcg capsule 1,000 mcg PO Q OTHER DAY Admission Data Admit Date/Time: 09/03/24 11:26 Attending Provider: Tho Granado Admit Provider: Tho Granado Primary Care Provider: Robert Gerardo Other Providers: [facility] Other Interventions: Discharge Summary Assessment (RN) Last Done: 09/04/24 10:54
[2024-09-04] MEDS ORDERED: CeleBREX 200 MG CAP PO SCH (21:00)
== END 2024-09-04 11:29 | disposition home health service (06) ==
LOC: 3E 07:20 → ASU 07:20
DX: Z79.02 Long term (current) use of antithrombotics/antiplatelets; I10 Essential (primary) hypertension; M65.98 Unspecified synovitis and tenosynovitis, other site; E78.5 Hyperlipidemia, unspecified; Z79.620 Long term (current) use of immunosuppressive biologic; M25.762 Osteophyte, left knee; Z86.73 Personal history of transient ischemic attack (TIA), and cerebral infarction without residual deficits; M17.12 Unilateral primary osteoarthritis, left knee; Z88.8 Allergy status to other drugs, medicaments and biological substances; Z91.030 Bee allergy status; M21.062 Valgus deformity, not elsewhere classified, left knee; Z79.899 Other long term (current) drug therapy; M11.262 Other chondrocalcinosis, left knee